=== PATIENT | female | born 1955 | race Caucasian/White ===

== ENCOUNTER 2016-05-17 02:50 | Observation (INO) ==
[2016-05-17] MEDS ORDERED: Metoclopramide 10 MG/2 ML VIAL IVP ONE (03:43)
[2016-05-17] MEDS ORDERED: Ketorolac 30 MG/ML VIAL IVP ONE (03:43)
[2016-05-17] MEDS ORDERED: 0.9 % Sodium Chloride 1,000 ML IVC ONE (03:48)
--- NOTE | 2016-05-17 03:54 | Emergency Department Note ---
Disposition Clinical Impression: Headache Qualifiers: Headache type: unspecified Headache chronicity pattern: unspecified pattern Intractability: not intractable Qualified Code(s): R51 - Headache Abdominal pain Qualifiers: Abdominal location: unspecified location Qualified Code(s): R10.9 - Unspecified abdominal pain Nausea & vomiting Qualifiers: Vomiting type: unspecified Vomiting Intractability: unspecified Qualified Code( s): R11.2 - Nausea with vomiting, unspecified Disposition: Still a Patient Referrals: NO,PCP [Non-Partnered Physician] - Forms: ED Satisfaction Letter Headache HPI - General Chief Complaint: ED Headache Stated Complaint: migraine, N/V Time Seen by Provider: 05/17/16 03:36 Limitations: no limitations Nursing Notes Reviewed: Yes Vital Signs Reviewed: Yes - History of Present Illness Pt Subjective Complaint: headache Onset (ago): hour(s) Onset description: gradual Location: frontal Pain Scale: 10 Quality: aching Improves with: nothing Worsens with: none Context: occurred at rest Associated symptoms: Reports: nausea, vomiting. Denies: chest pain, cough, fever, neck stiffness, eye pain/redness, syncope, SOB, confusion, weakness Treatments prior to arrival: none - Related Data Home Medications Medication Instructions Recorded Confirmed Quetiapine Fumarate [Seroquel] 800 mg PO HS 11/01/14 02/19/15 Omeprazole [PriLOSEC] 20 mg PO DAILY 01/07/15 02/19/15 Propranolol [Inderal] 20 mg PO BID 01/07/15 02/19/15 Ziprasidone [Geodon] 60 mg PO QPM 01/07/15 02/19/15 Cetirizine HCl [Zyrtec] 10 mg PO DAILY 02/19/15 02/19/15 Levothyroxine [Synthroid] 75 mcg PO DAILY 02/19/15 02/19/15 OxyCODONE/APAP 5/325 [Percocet 1 each PO Q6HR PRN 02/19/15 02/19/15 5/325] Pantoprazole Sodium 40 mg PO DAILY 02/19/15 02/19/15 Previous Rx's Medication Instructions Recorded Ondansetron ODT [Zofran ODT] 8 mg SL Q4H PRN #30 tab.rapdis 02/21/15 Sucralfate [Carafate] 1 gm PO 0730,1630 #30 tablet 02/21/15 Cephalexin [Keflex] 500 mg PO BID #20 capsule 12/12/15 Ondansetron ODT [Zofran ODT] 4 mg SL Q8HR #14 tab.rapdis 12/12/15 Promethazine [Phenergan] 25 mg PO Q8HR #10 tablet 12/12/15 Allergies Allergy/AdvReac Type Severity Reaction Status Date / Time acetaminophen [From Tylenol] Allergy Mild Hives Verified 01/07/15 08:04 All systems ED: reviewed and negative except as stated. Constitutional: Denies: fever, chills Eyes: Denies: vision change ENT ED: Denies: throat pain Cardiovascular: Denies: chest pain Respiratory: Denies: cough Gastrointestinal: Denies: abdominal pain, nausea, vomiting Genitourinary: Denies: dysuria Musculoskeletal: Denies: back pain, neck pain Integumentary: Denies: rash Neurological: Reports: as per HPI. Denies: weakness, numbness, paresthesias Hematological/Lymphatic: Denies: easy bleeding Allergic/Immunologic: Denies: facial swelling Headache PMH - Past Medical History Medical history: Reports: GERD, hypertension, migraine, other Female Surgical History: Reports: cholecystectomy, orthopedic, other Psychiatric history: Reports: bipolar, other - Social History Smoking Status: Current every day smoker Alcohol use: Reports: none Drug use: Reports: marijuana Physical Exam - General Limitations: no limitations General appearance: alert, in no apparent distress - Head Head exam: normocephalic - Eye Eye exam: Present: EOMI - ENT ENT exam: normal oropharynx, mucous membranes moist - Neck Neck exam: Present: full ROM - Chest Chest inspection: Present: normal inspection, symmetric chest wall rise - Respiratory Respiratory exam: Absent: respiratory distress - Cardiovascular Cardiovascular exam: Present: regular rate - Abdominal Exam Abdominal exam: Present: soft Abdominal tenderness: Present: epigastrium - Extremities Exam Extremities exam: Present: normal inspection, full ROM, normal capillary refill - Back Exam Back exam: Present: full ROM - Neurological Exam Neurological exam: Present: alert, oriented X3 - Psychiatric Psychiatric exam: Present: normal affect, normal mood - Skin Skin exam: Present: warm, dry, intact, normal color. Absent: rash, cyanosis, diaphoresis Course Course Narrative: Patient is a 61-year-old female arrives via squad with known history of migraines presents with a 10 out of 10 headache. She describes it as gradual in onset, aching, and over the front of her head. She states the onset was while she was watching TV. She states it has gradually been worsening. She denies any recent illness, fevers, No reported immune compromise conditions. Patient seen and examined. She is in no acute distress, she does not toxic. She is actively vomiting. No nuchal rigidity. Soft abdomen, with epigastric pain. She is alert and oriented 3. He meningeal signs. Workup initiated. Analgesics, antiemetics, and fluids ordered. - Reevaluation(s) Reevaluation #1: Work up reviewed. UA shows evidence of UTI, with culture from two days ago positive for e.coli. Today no elevation of white count. Pt c/o no improvement of SINGH, and epigastric pain. She still c/o nausea however it noticable more comfortable and is no longer vomitting. Due to shift change care of this patient will be transferred to day shift. Please see their earlier documentation. Pt discussed with day shift as well as Dr. rico. Plan will be for CT scan of abd/pelvis/head. Time: 06:58 Vital Signs Temperature 97.5 F L 05/17/16 02:51 Pulse Rate 86 05/17/16 02:51 Respiratory Rate 18 05/17/16 02:51 Blood Pressure 189/115 05/17/16 02:51 O2 Sat by Pulse Oximetry 97 05/17/16 02:51 Temperature 97.5 F L 05/17/16 02:51 Pulse Rate 86 05/17/16 02:51 Respiratory Rate 18 05/17/16 02:51 Blood Pressure 189/115 05/17/16 02:51 O2 Sat by Pulse Oximetry 97 05/17/16 02:51 Oxygen Delivery Oxygen Delivery Room Air Headache - Lab Data Lab results reviewed: Yes I reviewed the patient's lab results. Result diagrams: 05/17/16 05:43 05/17/16 05:43 Lab Results 05/17/16 05/17/16 05/17/16 Range/Units 05:26 05:26 05:43 WBC 9.7 (4.3-11.1) K/mcL RBC 4.94 (3.82-4.97) M/mcL Hgb 13.9 (11.5-15.4) g/dL Hct 42.0 (35.3-44.9) % MCV 85.0 (83.0-100.0) fL MCH 28.1 (28.0-33.3) pg MCHC 33.1 (31.6-35.5) g/dL RDW 16.3 H (11.5-14.5) % Plt Count 307 (140-400) K/mcL MPV 9.1 L (9.4-12.4) fL Immature Gran % 0.3 (0-4) % Seg Neutrophils % 84.0 % Lymphocytes % 11.1 % Monocytes % 4.2 % Eosinophils % 0.0 % Basophils % 0.4 % Neutrophils # 8.2 (1.6-8.9) K/mcL Lymphocytes # 1.1 (0.6-4.6) K/mcL Monocytes # 0.4 (0.0-1.3) K/mcL Eosinophils # 0.0 (0.0-0.6) K/mcL Basophils # 0.0 (0.0-0.2) K/mcL Sodium (136-145) mEq/L Potassium (3.5-4.5) mEq/L Chloride (98-109) mEq/L Carbon Dioxide (19-29) mEq/L BUN (7-20) mg/dL Creatinine (0.57-1.11) mg/dL Est GFR ( Amer) (> 60) Est GFR (Non-Af Amer) (> 60) BUN/Creatinine Ratio (6-26) Glucose (70-99) mg/dL Calculated Osmolality (280-300) Calcium (8.6-10.8) mg/dL Urine Color Yellow (Yellow) Urine Clarity Clear (Clear) Urine pH 7.5 (5.0-8.0) pH Units Ur Specific [place] 1.015 (1.010-1.025) Urine Protein 30 H (Neg-Trace) mg/dL Urine Glucose (UA) Normal (Normal) mg/dL Urine Ketones Negative (Negative) mg/dL Urine Blood Moderate H (Negative) Urine Nitrite Negative (Negative) Urine Bilirubin Negative (Negative) Urine Urobilinogen Normal (Normal) mg/dL Ur Leukocyte Esterase Trace H (Negative) Urine Microscopic RBC 5-15 H (0-3) per hpf Urine Microscopic WBC 0-3 (0-3) per hpf Ur Squamous Epith Cells Few (None-Few) per lpf Urine Bacteria Many H (None-Few) per hpf Hyaline Casts None Seen (None-Few) per lpf Urine Opiates Screen Negative (Oqpjgn=086) ng/mL Ur Barbiturates Screen Negative (Qmfbpz=636) ng/mL Ur Phencyclidine Scrn Negative (Cutoff=25) ng/mL Ur Amphetamines Screen Negative (Dmguma=2356) ng/mL U Benzodiazepines Scrn Negative (Zodniu=108) ng/mL Urine Cocaine Screen Positive H (Cutoff= 300) ng/mL U Marijuana (THC) Screen Positive H (Cutoff = 50) ng/mL 05/17/16 Range/Units 05:43 WBC (4.3-11.1) K/mcL RBC (3.82-4.97) M/mcL Hgb (11.5-15.4) g/dL Hct (35.3-44.9) % MCV (83.0-100.0) fL MCH (28.0-33.3) pg MCHC (31.6-35.5) g/dL RDW (11.5-14.5) % Plt Count (140-400) K/mcL MPV (9.4-12.4) fL Immature Gran % (0-4) % Seg Neutrophils % % Lymphocytes % % Monocytes % % Eosinophils % % Basophils % % Neutrophils # (1.6-8.9) K/mcL Lymphocytes # (0.6-4.6) K/mcL Monocytes # (0.0-1.3) K/mcL Eosinophils # (0.0-0.6) K/mcL Basophils # (0.0-0.2) K/mcL Sodium 139 (136-145) mEq/L Potassium 4.8 H (3.5-4.5) mEq/L Chloride 103 (98-109) mEq/L Carbon Dioxide 24 (19-29) mEq/L BUN 15 (7-20) mg/dL Creatinine 0.79 (0.57-1.11) mg/dL Est GFR ( Amer) > 60 (> 60) Est GFR (Non-Af Amer) > 60 (> 60) BUN/Creatinine Ratio 19 (6-26) Glucose 117 H (70-99) mg/dL Calculated Osmolality 290 (280-300) Calcium 10.2 (8.6-10.8) mg/dL Urine Color (Yellow) Urine Clarity (Clear) Urine pH (5.0-8.0) pH Units Ur Specific [place] (1.010-1.025) Urine Protein (Neg-Trace) mg/dL Urine Glucose (UA) (Normal) mg/dL Urine Ketones (Negative) mg/dL Urine Blood (Negative) Urine Nitrite (Negative) Urine Bilirubin (Negative) Urine Urobilinogen (Normal) mg/dL Ur Leukocyte Esterase (Negative) Urine Microscopic RBC (0-3) per hpf Urine Microscopic WBC (0-3) per hpf Ur Squamous Epith Cells (None-Few) per lpf Urine Bacteria (None-Few) per hpf Hyaline Casts (None-Few) per lpf Urine Opiates Screen (Edjdug=415) ng/mL Ur Barbiturates Screen (Uilyzb=634) ng/mL Ur Phencyclidine Scrn (Cutoff=25) ng/mL Ur Amphetamines Screen (Uixzkb=9431) ng/mL U Benzodiazepines Scrn (Dchkcv=572) ng/mL Urine Cocaine Screen (Cutoff= 300) ng/mL U Marijuana (THC) Screen (Cutoff = 50) ng/mL - Radiology Data Radiology results reviewed: Yes I reviewed the patient's radiology results. Attestation Statement - Attestation Attestation: I, Alek Rico MD, personally performed a history and physical exam of the patient and discussed their management with the midlevel provicer, PAC/PARCEL POST ORDER CLERK. I reviewed the midlevel provider's note and agree with the documented findings, medical decision making, and plan of care. 61-year-old female presents to the emergency department with a complaint of severe bilateral frontal headache started last evening has gone progressively worse. After the headache started she developed intractable nausea and vomiting and also epigastric abdominal pain. She has a history of some migraines in the past but states this is different from her usual headaches and worse than usual. She also has a history of recurrent intractable nausea and vomiting and abdominal pain. She has not noticed any fever. No rash or stiff neck. On examination patient is a well-developed well-nourished female in no acute distress but does appear to be in moderate discomfort. She is awake and alert. There is no cyanosis or diaphoresis. Breath sounds are equal bilaterally. Heart regular rate and rhythm. Abdomen is soft with increased bowel sounds. Moderate diffuse upper abdominal tenderness. No gross focal neurological deficits. Labs reviewed. A CT scan of the head and also abdomen and pelvis was obtained and results are pending. At shift change the patient was signed out to the oncoming mid-level provider, Lesa Florence, and was also discussed with the oncoming attending, Dr. Croft.
[2016-05-17] MEDS ORDERED: 0.9 % Sodium Chloride 1,000 ML IVC SCH (04:00)
[2016-05-17 05:33] LABS: Bilirubin,Urine Negative (Negative); Blood,Urine Moderate (Negative); Clarity,Urine Clear (Clear); Color,Urine Yellow (Yellow); Glucose,Urine (UA) Normal (Normal); Ketones,Urine Negative (Negative); Leukocyte Esterase,Urine Trace (Negative); Nitrite,Urine Negative (Negative); PH,Urine 7.5 pH Units (5.0-8.0); Protein,Urine 30 mg/dL (Neg-Trace); Specific Gravity,Urine 1.015 (1.010-1.025); Urobilinogen,Urine Normal (Normal)
[2016-05-17 05:41] LABS: Amphetamine Screen,Urine Negative ng/mL (Cutoff=1000); Barbiturate Screen,Urine Negative ng/mL (Cutoff=200); Benzodiazepines Screen,Urine Negative ng/mL (Cutoff=200); Cannabinoid Screen,Urine Positive ng/mL (Cutoff = 50); Cocaine Screen,Urine Positive ng/mL (Cutoff= 300); Opiate Screen,Urine Negative ng/mL (Cutoff=300); Phencyclidine Screen,Urine Negative ng/mL (Cutoff=25)
[2016-05-17 05:47] LABS: Hyaline Casts,Urine None Seen per lpf (None-Few); Squamous Epithelial Cell,Urine Few per lpf (None-Few); WBC,Urine 0-3 per hpf (0-3)
[2016-05-17 05:48] LABS: Bacteria,Urine Many per hpf (None-Few)
[2016-05-17 05:50] LABS: Basophils % 0.4 %; Hemoglobin 13.9 g/dL (11.5-15.4); Immature Granulocytes % 0.3 % (0-4); Lymphocytes # 1.1 K/mcL (0.6-4.6); Lymphocytes % 11.1 %; Mean Corpuscular HGB Conc 33.1 g/dL (31.6-35.5); Mean Corpuscular Hemoglobin 28.1 pg (28.0-33.3); Mean Platelet Volume 9.1 fL (9.4-12.4); Monocytes # 0.4 K/mcL (0.0-1.3); Monocytes % 4.2 %; Neutrophils # 8.2 K/mcL (1.6-8.9); Platelet Count 307 K/mcL (140-400); Red Blood Count 4.94 M/mcL (3.82-4.97); Red Cell Distribution Width 16.3 % (11.5-14.5)
[2016-05-17 06:02] LABS: BUN/Creatinine Ratio 19 (6-26); Blood Urea Nitrogen 15 mg/dL (7-20); Calcium 10.2 mg/dL (8.6-10.8); Carbon Dioxide 24 mEq/L (19-29); Chloride 103 mEq/L (98-109); Glucose 117 mg/dL (70-99); Osmolality,Calculated 290 (280-300); Sodium 139 mEq/L (136-145); eGFR For African Americans > 60 (> 60); eGFR For Non-African Americans > 60 (> 60)
[2016-05-17 06:03] LABS: Potassium 4.8 mEq/L (3.5-4.5)
[2016-05-17] MEDS ORDERED: *HR* Morphine 2 MG/ML SYRINGE IV ONE (06:58)
[2016-05-17] MEDS ORDERED: Ondansetron 4 MG/2 ML VIAL IVP ONE (07:00)
--- NOTE | 2016-05-17 09:20 | Emergency Department Note ---
START Narrative - START START: I examined this patient and my medical decision-making was reviewed with the STONEMASON APPRENTICE/PA/Advanced Practice Nurse/Resident Physician. I agree with the documented findings, disposition and treatment plan as described except to the extent set forth below. ED attending note: Patient seen with physician hr administrative assistant Lesa Florence. Please see a copy of his note for details of the H&P, evaluation, management and disposition of this patient. We independently had [id number] contact with the patient Briefly: This 31-year-old female in the emergency department for 2 chief complaints essentially exacerbation of her chronic recurrent migraine headaches and abdominal pain. Patient's examination showed a nonfocal neurologic exam, afebrile stable vitals. Nonsurgical abdominal examination. CT scan of the head read by radiology process, an abdominal pelvic CT scan read by radiology report says. Patient's symptoms have been brought under control. Labs essentially baseline. Stable for discharge home and outpatient follow-up.
--- NOTE | 2016-05-17 09:39 | Emergency Department Note ---
Disposition Clinical Impression: Pyelonephritis due to Escherichia coli, Noncompliance w/medication treatment due to intermit use of medication, Polysubstance abuse Headache Qualifiers: Headache type: unspecified Headache chronicity pattern: unspecified pattern Intractability: not intractable Qualified Code(s): R51 - Headache Abdominal pain Qualifiers: Abdominal location: unspecified location Qualified Code(s): R10.9 - Unspecified abdominal pain Nausea & vomiting Qualifiers: Vomiting type: unspecified Vomiting Intractability: intractable Qualified Code( s): R11.2 - Nausea with vomiting, unspecified Hypertension Qualifiers: Hypertension type: unspecified secondary hypertension Qualified Code(s): I15.9 - Secondary hypertension, unspecified; I15 - Secondary hypertension Disposition: Admitted As Inpatient Condition: Fair Referrals: NO,PCP [Non-Partnered Physician] - Forms: ED Satisfaction Letter General Adult HPI - General Chief complaint: ED Headache Stated complaint: migraine, N/V Time Seen by Provider: 05/17/16 03:36 Source: patient, EMS Mode of arrival: private vehicle Limitations: no limitations Nursing Notes Reviewed: Yes Vital Signs Reviewed: Yes - History of Present Illness Pt Subjective Complaint: headache, nausea, vomiting, abd pain Onset (ago): day(s) Location: head, back (flanks), abdomen Radiation: non-radiation Pain Severity: moderate, severe, similar to prior episodes Pain Scale: 9 Quality: aching, sharp Consistency: constant Improves with: nothing Worsens with: nothing Treatments Prior to Arrival: other (was seen here on 05/15 for same. No better today) - Related Data Home Medications Medication Instructions Recorded Confirmed Quetiapine Fumarate [Seroquel] 800 mg PO HS 11/01/14 02/19/15 Propranolol [Inderal] 20 mg PO BID 01/07/15 02/19/15 Ziprasidone [Geodon] 60 mg PO QPM 01/07/15 02/19/15 Cetirizine HCl [Zyrtec] 10 mg PO DAILY 02/19/15 02/19/15 Levothyroxine [Synthroid] 75 mcg PO DAILY 02/19/15 02/19/15 Albuterol Sulfate [Albuterol 2 puff IH Q4H PRN 05/17/16 05/17/16 Inhaler] Beclomethasone Diprop 40mcg [QVAR 1 puff IH DAILY 05/17/16 05/17/16 40 mcg] Hydrochlorothiazide 25 mg PO DAILY 05/17/16 05/17/16 Omeprazole [PriLOSEC] 20 mg PO BID 05/17/16 05/17/16 Previous Rx's Medication Instructions Recorded Ondansetron ODT [Zofran ODT] 4 mg SL Q8HR #14 tab.rapdis 12/12/15 Promethazine [Phenergan] 25 mg PO Q8HR #10 tablet 12/12/15 Allergies Allergy/AdvReac Type Severity Reaction Status Date / Time acetaminophen [From Tylenol] Allergy Mild Hives Verified 05/17/16 10:07 All systems ED: reviewed and negative except as stated. Constitutional: Reports: chills. Denies: fever, weakness Eyes: Denies: eye pain, vision change ENT ED: Denies: ear pain, throat pain, dysphagia Cardiovascular: Denies: chest pain, palpitations, dyspnea on exertion, orthopnea , edema, syncope Respiratory: Denies: cough, dyspnea, wheezes Gastrointestinal: Reports: as per HPI, abdominal pain, nausea, vomiting. Denies : diarrhea, constipation, hematemesis, melena, hematochezia Genitourinary: Denies: urgency, dysuria, frequency, hematuria Musculoskeletal: Reports: as per HPI, back pain. Denies: neck pain, joint swelling, arthralgia Integumentary: Denies: rash Neurological: Reports: as per HPI, headache. Denies: weakness, numbness, paresthesias, confusion, abnormal gait, vertigo Endocrine: Reports: fatigue Hematological/Lymphatic: Denies: easy bleeding Allergic/Immunologic: Denies: facial swelling Past Medical History - Past Medical History Attestation: Yes The following information was validated with the patient. Source: patient Medical history: Reports: GERD, hypertension, kidney stones, migraine, other Surgical history: Reports: cholecystectomy, orthopedic, other Psychiatric history: Reports: bipolar, other - Social History Smoking Status: Current every day smoker Smokeless Tobacco Status: No Alcohol use: Reports: none Drug use: Reports: marijuana Physical Exam - General Limitations: no limitations General appearance: alert, in no apparent distress, anxious - Head Head exam: atraumatic, normocephalic, normal inspection - Eye Eye exam: Present: normal appearance, PERRL, EOMI. Absent: scleral icterus, conjunctival injection, nystagmus, miosis, mydriasis, periorbital swelling - ENT ENT exam: mucous membranes dry - Neck Neck exam: Present: normal inspection, full ROM, trachea midline. Absent: meningismus, lymphadenopathy - Chest Chest inspection: Present: normal inspection - Respiratory Respiratory exam: Present: normal lung sounds bilaterally. Absent: respiratory distress, wheezes, stridor, accessory muscle use, prolonged expiratory phase - Cardiovascular Cardiovascular exam: Present: regular rate, normal rhythm, normal heart sounds - Abdominal Exam Abdominal exam: Present: soft, Non-Tender, normal bowel sounds. Absent: distention, guarding, rebound, rigidity, mass - Extremities Exam Extremities exam: Present: full ROM - Back Exam Back exam: Present: normal inspection, CVA tenderness (R), CVA tenderness (L). Absent: muscle spasm, vertebral tenderness - Neurological Exam Neurological exam: Present: alert, oriented X3, CN II-XII intact, normal gait, reflexes normal. Absent: motor sensory deficit - Psychiatric Psychiatric exam: Present: normal affect, anxious - Skin Skin exam: Present: warm, dry, intact, normal color Course Vital Signs Temperature 97.5 F L 05/17/16 02:51 Pulse Rate 86 05/17/16 02:51 Respiratory Rate 18 05/17/16 02:51 Blood Pressure 189/115 05/17/16 02:51 O2 Sat by Pulse Oximetry 97 05/17/16 02:51 Temperature 97.5 F L 05/17/16 02:51 Pulse Rate 106 05/17/16 07:32 Respiratory Rate 21 05/17/16 07:32 Blood Pressure 196/136 05/17/16 07:32 O2 Sat by Pulse Oximetry 96 05/17/16 07:32 Oxygen Delivery Oxygen Delivery Room Air Medical Decision Making - Medical Records Medical records reviewed: Yes I reviewed the patient's medical records. - Lab Data Lab results reviewed: Yes I reviewed the patient's lab results. Result diagrams: 05/17/16 05:43 05/17/16 05:43 Lab Results 05/17/16 05/17/16 05/17/16 Range/Units 05:26 05:26 05:43 WBC 9.7 (4.3-11.1) K/mcL RBC 4.94 (3.82-4.97) M/mcL Hgb 13.9 (11.5-15.4) g/dL Hct 42.0 (35.3-44.9) % MCV 85.0 (83.0-100.0) fL MCH 28.1 (28.0-33.3) pg MCHC 33.1 (31.6-35.5) g/dL RDW 16.3 H (11.5-14.5) % Plt Count 307 (140-400) K/mcL MPV 9.1 L (9.4-12.4) fL Immature Gran % 0.3 (0-4) % Seg Neutrophils % 84.0 % Lymphocytes % 11.1 % Monocytes % 4.2 % Eosinophils % 0.0 % Basophils % 0.4 % Neutrophils # 8.2 (1.6-8.9) K/mcL Lymphocytes # 1.1 (0.6-4.6) K/mcL Monocytes # 0.4 (0.0-1.3) K/mcL Eosinophils # 0.0 (0.0-0.6) K/mcL Basophils # 0.0 (0.0-0.2) K/mcL Sodium (136-145) mEq/L Potassium (3.5-4.5) mEq/L Chloride (98-109) mEq/L Carbon Dioxide (19-29) mEq/L BUN (7-20) mg/dL Creatinine (0.57-1.11) mg/dL Est GFR ( Amer) (> 60) Est GFR (Non-Af Amer) (> 60) BUN/Creatinine Ratio (6-26) Glucose (70-99) mg/dL Calculated Osmolality (280-300) Calcium (8.6-10.8) mg/dL Urine Color Yellow (Yellow) Urine Clarity Clear (Clear) Urine pH 7.5 (5.0-8.0) pH Units Ur Specific [place] 1.015 (1.010-1.025) Urine Protein 30 H (Neg-Trace) mg/dL Urine Glucose (UA) Normal (Normal) mg/dL Urine Ketones Negative (Negative) mg/dL Urine Blood Moderate H (Negative) Urine Nitrite Negative (Negative) Urine Bilirubin Negative (Negative) Urine Urobilinogen Normal (Normal) mg/dL Ur Leukocyte Esterase Trace H (Negative) Urine Microscopic RBC 5-15 H (0-3) per hpf Urine Microscopic WBC 0-3 (0-3) per hpf Ur Squamous Epith Cells Few (None-Few) per lpf Urine Bacteria Many H (None-Few) per hpf Hyaline Casts None Seen (None-Few) per lpf Urine Opiates Screen Negative (Tthixk=852) ng/mL Ur Barbiturates Screen Negative (Vfzapx=424) ng/mL Ur Phencyclidine Scrn Negative (Cutoff=25) ng/mL Ur Amphetamines Screen Negative (Cfwwpt=4731) ng/mL U Benzodiazepines Scrn Negative (Mvuevu=756) ng/mL Urine Cocaine Screen Positive H (Cutoff= 300) ng/mL U Marijuana (THC) Screen Positive H (Cutoff = 50) ng/mL 05/17/16 Range/Units 05:43 WBC (4.3-11.1) K/mcL RBC (3.82-4.97) M/mcL Hgb (11.5-15.4) g/dL Hct (35.3-44.9) % MCV (83.0-100.0) fL MCH (28.0-33.3) pg MCHC (31.6-35.5) g/dL RDW (11.5-14.5) % Plt Count (140-400) K/mcL MPV (9.4-12.4) fL Immature Gran % (0-4) % Seg Neutrophils % % Lymphocytes % % Monocytes % % Eosinophils % % Basophils % % Neutrophils # (1.6-8.9) K/mcL Lymphocytes # (0.6-4.6) K/mcL Monocytes # (0.0-1.3) K/mcL Eosinophils # (0.0-0.6) K/mcL Basophils # (0.0-0.2) K/mcL Sodium 139 (136-145) mEq/L Potassium 4.8 H (3.5-4.5) mEq/L Chloride 103 (98-109) mEq/L Carbon Dioxide 24 (19-29) mEq/L BUN 15 (7-20) mg/dL Creatinine 0.79 (0.57-1.11) mg/dL Est GFR ( Amer) > 60 (> 60) Est GFR (Non-Af Amer) > 60 (> 60) BUN/Creatinine Ratio 19 (6-26) Glucose 117 H (70-99) mg/dL Calculated Osmolality 290 (280-300) Calcium 10.2 (8.6-10.8) mg/dL Urine Color (Yellow) Urine Clarity (Clear) Urine pH (5.0-8.0) pH Units Ur Specific [place] (1.010-1.025) Urine Protein (Neg-Trace) mg/dL Urine Glucose (UA) (Normal) mg/dL Urine Ketones (Negative) mg/dL Urine Blood (Negative) Urine Nitrite (Negative) Urine Bilirubin (Negative) Urine Urobilinogen (Normal) mg/dL Ur Leukocyte Esterase (Negative) Urine Microscopic RBC (0-3) per hpf Urine Microscopic WBC (0-3) per hpf Ur Squamous Epith Cells (None-Few) per lpf Urine Bacteria (None-Few) per hpf Hyaline Casts (None-Few) per lpf Urine Opiates Screen (Onrbfl=798) ng/mL Ur Barbiturates Screen (Gvozfr=861) ng/mL Ur Phencyclidine Scrn (Cutoff=25) ng/mL Ur Amphetamines Screen (Qbxckg=4209) ng/mL U Benzodiazepines Scrn (Tqufjl=632) ng/mL Urine Cocaine Screen (Cutoff= 300) ng/mL U Marijuana (THC) Screen (Cutoff = 50) ng/mL - Radiology Data Radiology results reviewed: Yes I reviewed the patient's radiology results. Abdomen/Pelvis CT 05/17/16 06:38 IMPRESSION: 1. No acute findings within the abdomen. 2. No acute findings within the pelvis. 3. Medullary nephrocalcinosis with numerous nonobstructing bilateral renal calculi. No evidence of obstructive uropathy at this time. 4. Diverticulosis. 5. Stable, bilateral adrenal gland adenomatous hyperplasia. 6. Mild focal ectasia of the infrarenal abdominal aorta which measures up to 2.7 cm, stable. 7. Small hiatal hernia. D/ / 05/17/2016 08:20:28 Tera Rojas MD / sheryl Interpreting Provider: Tera Rojas MD Head CT 05/17/16 06:42 IMPRESSION: No acute intracranial abnormality. D/ / 05/17/2016 08:06:28 Tera Rojas MD / sheryl Interpreting Provider: Tera Rojas MD
--- NOTE | 2016-05-17 11:55 | Internal Med History&Physical ---
<Maria G Mchugh - Last Filed: 05/17/16 12:52> Date of Encounter: 05/17/16 Time of Encounter: 11:20 Assessment and Plan (1) UTI (urinary tract infection) Current visit: Yes Status: Acute t has had dysuria and dark urine for a a month but did not seek treatment. Renal function WNL. Pt was given Rocephin 1 gram IV in the ED. Pt was seen here 2 days ago for same complaints, urine culture was done at that time, + for e.coli. IVF 0.9NS at 75ml/hour Rocephin 1g IV daily Pain control Qualifiers: Urinary tract infection type: acute cystitis Hematuria presence: with hematuria Qualified Code(s): N30.01 - Acute cystitis with hematuria (2) Hypertension Current visit: Yes Status: Chronic Pt states that she has not been able to keep her medications down for 3 days due to migraine, n/v. Vasotec 1.25mg x 2 in ER with no effect. Hydralazine 10mg IVP Monitor vital signs closely Telemetry Qualifiers: Hypertension type: essential hypertension Qualified Code(s): I10 - Essential (primary) hypertension (3) Headache Current visit: Yes Status: Chronic Pt has had migraine and n/v x 3 days, has not been able to keep any of her medications down. She has been seen by neurology who told her that her headaches most likely are due to her hypertension. Most likely this is the case again today. I have given her Motrin 600mg TID for the pain and am giving IV Hydralazine to attempt to lower her pressure. Head CT in ER today is negative for any acute process and she is neurologically intact. She states that her SINGH is global and describes photophobia. Qualifiers: Headache type: unspecified Headache chronicity pattern: unspecified pattern Intractability: not intractable Qualified Code(s): R51 - Headache (4) Nausea & vomiting Current visit: Yes Status: Chronic N/v and SINGH for 3 days. Pt was seen in the ED for the same 2 days ago. Pt does use marijuana 2-3x weekly. Head CT is negative and CT abd/pelvis shows malinda non- obstructing calculi without hydronephrosis, bladder, urerters are unremarkable and stable. We discussed the correlation between marijuana use and cyclical vomiting. This may also be due to HTN and pyelo, so as these are treated, it most likely will resolve. Zofran 4mg IV q8h prn n/v Qualifiers: Vomiting type: cyclical vomiting Vomiting Intractability: intractable Qualified Code(s): G43.A1 - Cyclical vomiting, intractable (5) Polysubstance abuse Current visit: Yes Status: Chronic UTOX positive for cocaine and THC. Pt admits to marijuana use 2-3x/week, but adamantly denies cocaine use and is not sure how she got it. She is not ready to stop using marijuana at this time. (6) Schizophrenia Current visit: No Status: Chronic Stable. Well controlled with Geodon. Will continue. Qualifiers: Schizophrenia type: unspecified Qualified Code(s): F20.9 - Schizophrenia, unspecified (7) Erosive esophagitis Current visit: No Status: Chronic Uncontrolled GERD "for years" per pt. Well controlled now with Omeprazole. Will continue home dose. (8) Tobacco abuse Current visit: No Status: Chronic Pt states that she wants to stop smoking someday, but is not ready now and it not interested in smoking cessation education. Does not want nicoderm patch. Smokes 1/2 PPD, decreased from 1 PPD for 40 years. Internal Medicine - H&P: HPI Chief complaint: headache, n/v x 3 days Admitted From: Home Plans for Post Hospital Care: Home History of present illness: Ms. Banks is a 61 year old female with a history of HTN, COPD, pancreatitis, erosive esophagitis, schizophrenia, polysubstance and tobacco abuse. Migraine SINGH and n/v for 3 days, has not been able to keep any of her medications down. She has prn phenergan and zofran ODT at home and states that even it wouldn't stay down. Describes SINGH as global with photophobia and n/v, without vision changes. She says that she has not had one for years and was seen by neurology who told her that they were most likely due to her blood pressure. Head CT in ER was negative for any acute processes and pt now states that her SINGH pain is 6/ 10. Pt also reports urinary symptoms for 1 month but did not seek care. She reports dark urine and dysuria for the last month. Today she has UTI and malinda CVA tenderness, denies fever and has been afebrile here. Past Med Surg Social Fam HX - Past Medical History Medical history: GERD, hypertension, kidney stones, migraine, other Psychiatric history: bipolar, other - Past Surgical History Surgical History: cholecystectomy, orthopedic, other - Social History Smoking Status: Current every day smoker Smokeless Tobacco Status: No Alcohol use: none Drug use: marijuana - Family History Mother Adopted: No Living Status: Unknown Hx Family Cardiac Disorders: No Hx Family Respiratory Disorders: No Hx Family Cancer: No Hx Family GI Disorders: No Hx Family Endocrine Disorder: No Hx Family Neuromuscular Disorders: No Hx Family Neurologic Disorders: No Hx Family HEENT Disorders: No Hx Family Autoimmune Disorders: No Internal Medicine - H&P: Meds Quetiapine Fumarate [Seroquel] 800 mg PO HS 11/01/14 [History] Propranolol [Inderal] 20 mg PO BID 01/07/15 [History] Ziprasidone [Geodon] 60 mg PO QPM 01/07/15 [History] Cetirizine HCl [Zyrtec] 10 mg PO DAILY 02/19/15 [History] Levothyroxine [Synthroid] 75 mcg PO DAILY 02/19/15 [History] Ondansetron ODT [Zofran ODT] 4 mg SL Q8HR #14 tab.rapdis 12/12/15 [Rx] Promethazine [Phenergan] 25 mg PO Q8HR #10 tablet 12/12/15 [Rx] Albuterol Sulfate [Albuterol Inhaler] 2 puff IH Q4H PRN 05/17/16 [History] Beclomethasone Diprop 40mcg [QVAR 40 mcg] 1 puff IH DAILY 05/17/16 [History] Hydrochlorothiazide 25 mg PO DAILY 05/17/16 [History] Omeprazole [PriLOSEC] 20 mg PO BID 05/17/16 [History] Allergies acetaminophen [From Tylenol] Allergy (Mild, Verified 05/17/16 10:07) Hives All Systems PM: A 10-system review of systems was performed and is negative for pertinent findings except as documented above in the HPI. - Constitutional Constitutional: no chills, no fatigue, no fever(s), no lethargy - EENT Eyes: photophobia, no blurry vision, no change in vision - Cardiovascular Cardiovascular ROS IM: no chest pain, no dyspnea, no edema, no palpitations - Respiratory Respiratory: no cough, no dyspnea, no wheezing, no stridor, no chest congestion Additional comments: Pt states that her COPD is well controlled with her steroid and albuterol inhaler. Denies recent change in cough or need for increased use of albuterol. - Gastrointestinal Gastrointestinal: abdominal pain, nausea, vomiting, no constipation, no diarrhea - Genitourinary Genitourinary: dysuria, no hematuria, no pelvic pain, no urinary frequency, no urinary hesitancy, no urinary incontinence, no urinary urgency - Neurological Neurological ROS: no abnormal speech, no dizziness, no frequent falls, no weakness - Constitutional Vitals: Temp Pulse Resp BP Pulse Ox 97.5 F L 100 18 190/146 98 05/17/16 02:51 05/17/16 11:26 05/17/16 10:33 05/17/16 11:26 05/17/16 09:57 General appearance: Present: cooperative, A&O X 3, pleasant, no acute distress - Head Head exam: Present: atraumatic, normal inspection - Eye Eye exam: Present: normal appearance, PERRL, conjuntiva pink - ENT ENT exam: Present: mucous membranes dry, normal exam - Neck Neck exam general surgery: Absent: lymphadenopathy, tenderness - Respiratory Respiratory exam: Present: CTAB. Absent: accessory muscle use, chest wall tenderness, decreased breath sounds, rhonchi, wheezes - Cardiovascular Cardiovascular exam: Present: RRR, +S1, +S2. Absent: diastolic murmur, systolic murmur - GI/Abdominal GI/Abdominal exam: Present: hyperactive bowel sounds, soft, tenderness - Extremities Exam Extremities exam: Present: full ROM, normal capillary refill, warm, radial pulses palpable and symetrical. Absent: pedal edema, tenderness - Neurological Exam Neurological exam: Present: alert, oriented X3, no focal deficits. Absent: facial droop, speech deficit - Psychiatric Psychiatric exam: Present: normal affect, normal mood Internal Med - H&P Results - Labs CBC & Chem 7: 05/17/16 05:43 05/17/16 05:43 <Jenny Lawrence - Last Filed: 05/18/16 07:40> Date of Encounter: 05/18/16 Internal Medicine - H&P: HPI History of present illness: Ms. Banks is a 61 year old female All Systems PM: A 10-system review of systems was performed and is negative for pertinent findings except as documented above in the HPI. - Constitutional Vitals: Temp Pulse Resp BP Pulse Ox 97.9 F 77 18 102/72 98 05/18/16 06:33 05/18/16 06:33 05/18/16 06:33 05/18/16 06:33 05/18/16 06:33 Internal Med - H&P Results - Labs CBC & Chem 7: 05/18/16 06:18 05/18/16 06:18 Labs: Short CBC 05/18/16 Range/Units 06:18 WBC 5.7 (4.3-11.1) K/mcL Hgb 12.5 (11.5-15.4) g/dL Hct 39.4 (35.3-44.9) % Plt Count 231 (140-400) K/mcL Neutrophils # 3.0 (1.6-8.9) K/mcL BMP 05/18/16 06:18 Sodium 141 Potassium 3.4 L D Chloride 108 Carbon Dioxide 24 BUN 22 H Creatinine 0.85 Glucose 83 Calcium 9.1 - Attending Attestation I examined this patient and reviewed laboratory, imaging and all diagnostic data. My medical decision-making was reviewed with IRVING Mchugh. I agree with the documented findings, disposition and treatment plan as described above. 61 year old female with past medical history of HTN, COPD, schizophrenia, polysubstance abuse and tobacco abuse. 3 days ago, she was diagnosed with UTI and sent home with oral antibiotics. She has not taken her medications due to nausea, vomiting with associated headache. BP was elevated. EXamination revealed pain all over her body. Urine drug screen was positive for cocaine and marihuana. Urine culture grew E coli resistant to cipro and levofloxacin. She received IV Ceftriaxone, IV fluids and pain meds. A/P: UTI, continue ceftriaxone and IV fluids. Cocaine abuse, IVF and antiemetics. resume all her prior home medications.
[2016-05-17] MEDS ORDERED: Mag Hydrox/Al Hydrox/Simeth 30 ML UDC PO PRN (12:09)
[2016-05-17] MEDS ORDERED: *HR* Morphine 2 MG/ML SYRINGE IVP PRN (12:09)
[2016-05-17] MEDS ORDERED: Ondansetron 4 MG/2 ML VIAL IVP PRN (12:09)
[2016-05-17] MEDS ORDERED: Naloxone 0.4 MG/ML INJ IVP PRN (12:09)
[2016-05-17] MEDS ORDERED: MOM Conc 10 ML UD.LIQ PO PRN (12:09)
[2016-05-17] MEDS ORDERED: Albuterol 2.5 MG/3 ML NEBULIZER IH PRN (13:01)
[2016-05-17] MEDS: 0.9 % Sodium Chloride 1,000 ML IVC SCH (14:09)
[2016-05-17] MEDS: Pantoprazole 40 MG VIAL IVP SCH (14:10)
[2016-05-17] MEDS: *HR* Morphine 2 MG/ML SYRINGE IVP PRN ×2 (14:10→23:19)
[2016-05-17] MEDS ORDERED: Ziprasidone 20 MG CAPSULE PO SCH (18:00)
[2016-05-17] MEDS ORDERED: Ziprasidone injection 20 MG/ML VIAL IM ONE (19:02)
--- NOTE | 2016-05-17 20:05 | Electrocardiograph Report ---
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
[2016-05-17] MEDS ORDERED: NON-FORMULARY MEDICATION 1 EACH EACH (Quetiapine Fumarate [Seroquel] 800 MG) PO SCH (21:00)
[2016-05-17] MEDS: Budesonide Neb 0.5 MG/2 ML IH SCH (22:02)
[2016-05-17] MEDS: Ziprasidone 20 MG CAPSULE PO SCH (23:19)
[2016-05-18] MEDS: 0.9 % Sodium Chloride 1,000 ML IVC SCH (03:56)
[2016-05-18] MEDS: Ibuprofen 600 MG TABLET PO PRN ×2 (06:42→17:42)
[2016-05-18 06:48] LABS: Basophils % 0.5 %; Eosinophils % 0.7 %; Hematocrit 39.4 % (35.3-44.9); Hemoglobin 12.5 g/dL (11.5-15.4); Immature Granulocytes % 0.5 % (0-4); Lymphocytes # 2.1 K/mcL (0.6-4.6); Lymphocytes % 36.6 %; Mean Corpuscular HGB Conc 31.7 g/dL (31.6-35.5); Mean Corpuscular Hemoglobin 27.1 pg (28.0-33.3); Mean Corpuscular Volume 85.5 fL (83.0-100.0); Mean Platelet Volume 9.3 fL (9.4-12.4); Monocytes # 0.5 K/mcL (0.0-1.3); Platelet Count 231 K/mcL (140-400); Red Blood Count 4.61 M/mcL (3.82-4.97); Red Cell Distribution Width 16.4 % (11.5-14.5); Segmented Neutrophils % 53.7 %
[2016-05-18 07:06] LABS: BUN/Creatinine Ratio 26 (6-26); Blood Urea Nitrogen 22 mg/dL (7-20); Calcium 9.1 mg/dL (8.6-10.8); Carbon Dioxide 24 mEq/L (19-29); Chloride 108 mEq/L (98-109); Glucose 83 mg/dL (70-99); Osmolality,Calculated 294 (280-300); Potassium 3.4 mEq/L (3.5-4.5); Sodium 141 mEq/L (136-145); eGFR For African Americans > 60 (> 60); eGFR For Non-African Americans > 60 (> 60)
[2016-05-18] MEDS: Budesonide Neb 0.5 MG/2 ML IH SCH ×2 (07:50→21:49)
--- NOTE | 2016-05-18 08:34 | Internal Med Progress Note ---
<Collin Flynn - Last Filed: 05/18/16 09:57> Date of Encounter: 05/18/16 Time of Encounter: 08:51 - Subjective Interval history: Patient seen and examined at bedside this morning. She states her migraine is much improved although still present. Her nausea / vomiting has resolved. Her flank pain is improved. Denies CP/SOB or other new complaints - Constitutional Vitals: Temp Pulse Resp BP Pulse Ox 97.9 F 77 18 102/72 98 05/18/16 06:33 05/18/16 06:33 05/18/16 06:33 05/18/16 06:33 05/18/16 06:33 General appearance: Present: cooperative, A&O X 3, pleasant, no acute distress - Head Head exam: Present: atraumatic, normocephalic - Eye Eye exam: Present: PERRL, conjuntiva pink, sclera anicteric Pupils: Present: PERRL - Neck Neck exam general surgery: Present: supple, trachea midline. Absent: lymphadenopathy - Respiratory Respiratory exam: Present: CTAB. Absent: accessory muscle use, rales, rhonchi, wheezes - Cardiovascular Cardiovascular exam: Present: RRR, +S1, +S2. Absent: diastolic murmur, gallop, rubs, systolic murmur - GI/Abdominal GI/Abdominal exam: Present: normal bowel sounds, soft, no peritoneal signs. Absent: distended Additional comments: Mild epigastric tenderness - Additional comments: + CVA tenderness - Extremities Exam Extremities exam: Present: warm, radial pulses palpable and symetrical. Absent : calf tenderness, cyanotic, pedal edema - Neurological Exam Neurological exam: Present: oriented X3, no focal deficits. Absent: facial droop, speech deficit - Skin Skin exam: Present: dry, intact Internal Medicine: Result - Labs CBC & Chem 7: 05/18/16 06:18 05/18/16 06:18 Labs: Short CBC 05/18/16 Range/Units 06:18 WBC 5.7 (4.3-11.1) K/mcL Hgb 12.5 (11.5-15.4) g/dL Hct 39.4 (35.3-44.9) % Plt Count 231 (140-400) K/mcL Neutrophils # 3.0 (1.6-8.9) K/mcL BMP 05/18/16 06:18 Sodium 141 Potassium 3.4 L D Chloride 108 Carbon Dioxide 24 BUN 22 H Creatinine 0.85 Glucose 83 Calcium 9.1 Consult Discharge Plan - Plan Referrals: Blanca Echavraria DO [Primary Care Provider] - <DilannavyaEulogio H - Last Filed: 05/18/16 13:41> Date of Encounter: 05/18/16 - Time Spent With Patient 1.- Urinary tract infection with Escherichia coli resistant to ciprofloxacin The patient received Rocephin yesterday but has no IV access today. We will start amoxicillin with clavulanic acid today and we will try to discharge in the morning if stable. 2. Dehydration secondary to intractable nausea and vomiting Improving, may start IV fluids when new IV line is placed 3. Tobacco use and marijuana use Smoking cessation counseling given for 5 minutes 4. Cocaine use. The patient was positive for cocaine but denies using such drugs. She thinks it was mixed with her marijuana. 5. Migraine likely the cause of her intractable nausea and vomiting, continue pain medications 6. GERD start omeprazole Greater than 35 minutes - Subjective Interval history: Please of abdominal pain,. Complains of some dysuria. No fevers overnight - Constitutional Vitals: Temp Pulse Resp BP Pulse Ox 98.5 F 63 18 125/82 98 05/18/16 11:08 05/18/16 11:08 05/18/16 11:08 05/18/16 11:08 05/18/16 11:08 - Head Head exam: Present: atraumatic, normocephalic - Eye Eye exam: Present: PERRL, conjuntiva pink, sclera anicteric Pupils: Present: PERRL - Neck Neck exam general surgery: Present: supple, trachea midline. Absent: lymphadenopathy - Respiratory Respiratory exam: Present: CTAB. Absent: accessory muscle use, rales, rhonchi, wheezes - Cardiovascular Cardiovascular exam: Present: RRR, +S1, +S2. Absent: diastolic murmur, gallop, rubs, systolic murmur - GI/Abdominal GI/Abdominal exam: Present: normal bowel sounds, soft, no peritoneal signs. Absent: distended, tenderness - Extremities Exam Extremities exam: Present: warm, radial pulses palpable and symetrical. Absent : calf tenderness, cyanotic, pedal edema - Neurological Exam Neurological exam: Present: CN II-XII intact, oriented X3, no focal deficits. Absent: pronater drift, facial droop, speech deficit - Skin Skin exam: Present: dry, intact Internal Medicine: Result - Labs CBC & Chem 7: 05/18/16 06:18 05/18/16 06:18 Labs: Short CBC 05/18/16 Range/Units 06:18 WBC 5.7 (4.3-11.1) K/mcL Hgb 12.5 (11.5-15.4) g/dL Hct 39.4 (35.3-44.9) % Plt Count 231 (140-400) K/mcL Neutrophils # 3.0 (1.6-8.9) K/mcL BMP 05/18/16 06:18 Sodium 141 Potassium 3.4 L D Chloride 108 Carbon Dioxide 24 BUN 22 H Creatinine 0.85 Glucose 83 Calcium 9.1
[2016-05-18] MEDS: Cetirizine HCl 5 MG/5 ML UDC PO SCH (09:19)
[2016-05-18] MEDS: Pantoprazole 40 MG VIAL IVP SCH (09:21)
[2016-05-18] MEDS: hydroCHLOROthiazide 25 MG TABLET PO SCH (09:21)
[2016-05-18] MEDS: *HR* Morphine 2 MG/ML SYRINGE IVP PRN ×3 (09:39→20:07)
[2016-05-18] MEDS: Ziprasidone 20 MG CAPSULE PO SCH (17:39)
[2016-05-19 04:48] LABS: BUN/Creatinine Ratio 17 (6-26); Blood Urea Nitrogen 18 mg/dL (7-20); Calcium 8.9 mg/dL (8.6-10.8); Carbon Dioxide 20 mEq/L (19-29); Chloride 106 mEq/L (98-109); Glucose 127 mg/dL (70-99); Osmolality,Calculated 285 (280-300); Potassium 4.1 mEq/L (3.5-4.5); Sodium 136 mEq/L (136-145); eGFR For African Americans > 60 (> 60); eGFR For Non-African Americans 54 (> 60)
[2016-05-19] MEDS: *HR* Morphine 2 MG/ML SYRINGE IVP PRN (05:54)
[2016-05-19] MEDS: Budesonide Neb 0.5 MG/2 ML IH SCH (08:36)
[2016-05-19] MEDS: hydroCHLOROthiazide 25 MG TABLET PO SCH (09:07)
[2016-05-19] MEDS ORDERED: Ondansetron ODT 4 MG TAB.RAPDIS SL PRN (09:21)
[2016-05-19] MEDS: Cetirizine HCl 5 MG/5 ML UDC PO SCH (10:02)
--- NOTE | 2016-05-19 11:14 | Discharge Summary ---
Date of Encounter: 05/19/16 Time of Encounter: 11:10 - Discharge Medications Prescriptions: Amoxicillin/Clavulanate [Augmentin] 875 mg PO BIDWM #8 tablet Home Medications: Quetiapine Fumarate [Seroquel] 800 mg PO HS 11/01/14 [History] Propranolol [Inderal] 20 mg PO BID 01/07/15 [History] Ziprasidone [Geodon] 60 mg PO QPM 01/07/15 [History] Cetirizine HCl [Zyrtec] 10 mg PO DAILY 02/19/15 [History] Levothyroxine [Synthroid] 75 mcg PO DAILY 02/19/15 [History] Ondansetron ODT [Zofran ODT] 4 mg SL Q8HR #14 tab.rapdis 12/12/15 [Rx] Promethazine [Phenergan] 25 mg PO Q8HR #10 tablet 12/12/15 [Rx] Albuterol Sulfate [Albuterol Inhaler] 2 puff IH Q4H PRN 05/17/16 [History] Beclomethasone Diprop 40mcg [QVAR 40 mcg] 1 puff IH DAILY 05/17/16 [History] Hydrochlorothiazide 25 mg PO DAILY 05/17/16 [History] Omeprazole [PriLOSEC] 20 mg PO BID 05/17/16 [History] Amoxicillin/Clavulanate [Augmentin] 875 mg PO BIDWM #8 tablet 05/19/16 [Rx] Allergies/Adverse Reactions: Allergies acetaminophen [From Tylenol] Allergy (Mild, Verified 05/17/16 10:07) Hives Date of admission: 05/17/16 10:11 Primary care physician: Blanca Echavarria DO Consults: 05/17/16 11:55 Consult to Nutrition [CONS] Routine Comment: nurse consult for MST Consulting Provider: NUTRITION Reason for Dietary Consult: MST Score - Patient Status Disposition: Home, Self-Care Condition: Good Overall status at discharge: patient is back to baseline - Discharge Instructions Follow Up With: Blanca Echavarria DO [Primary Care Provider] - Additional Instructions: Follow with primary care physician within the next 7 days. Complete 4 more days of Augmentin. Quit smoking, avoid using marijuana - Diet and Activity Activity: increase activity as tolerated Diet: low fat, low cholesterol Interval History: 1.- Urinary tract infection with Escherichia coli resistant to ciprofloxacin The patient received Rocephin Was started on amoxicillin with clavulanic acid day 2 2. Dehydration secondary to intractable nausea and vomiting 3. Tobacco use and marijuana use Smoking cessation counseling given for 5 minutes 4. Cocaine use. The patient was positive for cocaine but denies using such drugs. She thinks it was mixed with her marijuana. 5. Migraine likely the cause of her intractable nausea and vomiting, continue pain medications 6. GERD start omeprazole Hospital course: Ms. Banks is a 61 year old female with a history of HTN, COPD, pancreatitis, erosive esophagitis, schizophrenia, polysubstance and tobacco abuse. Migraine SINGH and n/v for 3 days, was not able to keep any of her medications down. She has prn phenergan and zofran ODT at home and states that even it wouldn't stay down. Describes SINGH as global with photophobia and n/v, without vision changes. She says that she has not had one for years and was seen by neurology who told her that they were most likely due to her blood pressure. Head CT in ER was negative for any acute processes and pt now states that her SINGH pain is 6/10. Diagnosed with a urinary tract infection with Escherichia coli resistant to ciprofloxacin and Levaquin. Patient was started on Rocephin but during her hospitalization she lost her IV access and was started on Augmentin. She has not vomited overnight and was able to keep finally her on antibiotics for which she is stable to be discharged today. Her potassium was 3.4 and was repleted. Time spent discussing smoking cessation with patient: 3 to 10 minutes - Time Spent with Patient Total time spent providing and/or coordinating discharge services: Greater than 30 minutes (40 min) - Constitutional Vitals: Temp Pulse Resp BP Pulse Ox 97.5 F L 80 16 118/80 98 05/19/16 07:23 05/19/16 07:23 05/19/16 07:23 05/19/16 07:23 05/19/16 07:23 General appearance: Present: cooperative, A&O X 3, pleasant, no acute distress - Head Head exam: Present: atraumatic, normocephalic - Eye Eye exam: Present: PERRL, conjuntiva pink, sclera anicteric Pupils: Present: PERRL - Neck Neck exam general surgery: Present: supple, trachea midline. Absent: lymphadenopathy - Respiratory Respiratory exam: Present: CTAB. Absent: accessory muscle use, rales, rhonchi, wheezes - Cardiovascular Cardiovascular exam: Present: RRR, +S1, +S2. Absent: diastolic murmur, gallop, rubs, systolic murmur - GI/Abdominal GI/Abdominal exam: Present: normal bowel sounds, soft, no peritoneal signs. Absent: distended, tenderness - Extremities Exam Extremities exam: Present: warm, radial pulses palpable and symetrical. Absent : calf tenderness, cyanotic, pedal edema - Neurological Exam Neurological exam: Present: CN II-XII intact, oriented X3, no focal deficits. Absent: pronater drift, facial droop, speech deficit - Skin Skin exam: Present: dry, intact
[2016-05-19] MEDS ORDERED: FLU VACC QS2016-17 36MOS UP/PF 0.5 ML SYRINGE IM ONE (11:39)
[2016-05-19 11:56] VITALS: BP 118/80
== END 2016-05-19 13:40 | disposition home or self-care (01) ==
LOC: 3NENU 02:50 → EMEROO 02:50 → SUATTDRO 10:11 → 3NENU 10:55
PROVIDERS: ADMIT Internal Medicine; ATTEND Internal Medicine

== ENCOUNTER 2016-08-07 14:10 | Inpatient (IN) ==
[2016-08-07 15:49] LABS: Bilirubin,Urine Negative (Negative); Blood,Urine Small (Negative); Clarity,Urine Cloudy (Clear); Color,Urine Yellow (Yellow); Glucose,Urine (UA) Normal (Normal); Ketones,Urine Negative (Negative); Leukocyte Esterase,Urine Moderate (Negative); Nitrite,Urine Negative (Negative); PH,Urine 6.5 pH Units (5.0-8.0); Protein,Urine Negative (Neg-Trace); Specific Gravity,Urine 1.016 (1.010-1.025); Urobilinogen,Urine Normal (Normal)
[2016-08-07 15:51] LABS: Bacteria,Urine Many per hpf (None-Few); Hyaline Casts,Urine None Seen per lpf (None-Few); Squamous Epithelial Cell,Urine Many per lpf (None-Few); WBC,Urine 30-50 per hpf (0-3)
[2016-08-07 15:55] LABS: Amphetamine Screen,Urine Negative ng/mL (Cutoff=1000); Barbiturate Screen,Urine Negative ng/mL (Cutoff=200); Benzodiazepines Screen,Urine Negative ng/mL (Cutoff=200); Cannabinoid Screen,Urine Positive ng/mL (Cutoff = 50); Cocaine Screen,Urine Negative ng/mL (Cutoff= 300); Opiate Screen,Urine Negative ng/mL (Cutoff=300); Phencyclidine Screen,Urine Negative ng/mL (Cutoff=25)
[2016-08-07 16:46] LABS: Basophils % 0.4 %; Eosinophils % 0.3 %; Hematocrit 47.6 % (35.3-44.9); Immature Granulocytes % 0.5 % (0-4); Lymphocytes # 2.4 K/mcL (0.6-4.6); Mean Corpuscular HGB Conc 33.6 g/dL (31.6-35.5); Mean Corpuscular Hemoglobin 28.5 pg (28.0-33.3); Mean Corpuscular Volume 84.7 fL (83.0-100.0); Mean Platelet Volume 9.8 fL (9.4-12.4); Monocytes % 9.7 %; Platelet Count 286 K/mcL (140-400); Red Blood Count 5.62 M/mcL (3.82-4.97); Red Cell Distribution Width 14.2 % (11.5-14.5); Segmented Neutrophils % 66.1 %
[2016-08-07 16:51] LABS: Alanine Aminotransferase 23 Units/L (0-55); Albumin 3.9 g/dL (3.5-5.0); Alkaline Phosphatase 98 Units/L (38-126); Aspartate Amino Transferase 17 Units/L (5-34); BUN/Creatinine Ratio 40 (6-26); Bilirubin,Direct 0.3 mg/dL (0.0-0.5); Bilirubin,Indirect 0.4 mg/dL (0.0-1.2); Bilirubin,Total 0.7 mg/dL (0.2-1.2); Blood Urea Nitrogen 45 mg/dL (7-20); Calcium 10.2 mg/dL (8.6-10.8); Carbon Dioxide 32 mEq/L (19-29); Chloride 86 mEq/L (98-109); Globulin 4.1 g/dL (2.4-3.5); Glucose 112 mg/dL (70-99); Osmolality,Calculated 286 (280-300); Potassium 3.4 mEq/L (3.5-4.5); Sodium 132 mEq/L (136-145); eGFR For African Americans 60 (> 60); eGFR For Non-African Americans 49 (> 60)
[2016-08-07 16:52] LABS: Acetaminophen < 1.0 mcg/mL (10-30); Ethanol < 10 mg/dL (0-10); Salicylate < 5.0 mg/dL (15-30)
[2016-08-07] MEDS ORDERED: Ondansetron ODT 4 MG TAB.RAPDIS SL ONE ×2 (16:52→20:52)
[2016-08-07] MEDS ORDERED: GI Cocktail 40 ML EACH PO ONE (16:53)
[2016-08-07 17:12] LABS: Thyroid Stimulating Hormone 0.701 mcIU/mL (0.350-4.840)
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
[2016-08-07] MEDS ORDERED: Ketorolac 30 MG/ML VIAL IM ONE (20:52)
--- NOTE | 2016-08-08 05:30 | Emergency Department Note ---
Disposition Clinical Impression: Suicidal ideation Disposition: Still a Patient Condition: Good Referrals: NO,PCP [Primary Care Provider] - Forms: ED Satisfaction Letter, Work/School Release General Adult HPI - General Chief complaint: ED Abdominal Pain Stated complaint: n/v, abd pain x1 week, SI Time Seen by Provider: 08/07/16 15:35 Source: patient Limitations: no limitations - History of Present Illness HPI Narrative: Please see prior providers documentation for full history and physical. This patient was signed out. Pain Scale: 0 - Related Data Home Medications Medication Instructions Recorded Confirmed Quetiapine Fumarate [Seroquel] 800 mg PO HS 11/01/14 05/17/16 Propranolol [Inderal] 20 mg PO BID 01/07/15 05/17/16 Ziprasidone [Geodon] 60 mg PO QPM 01/07/15 05/17/16 Cetirizine HCl [Zyrtec] 10 mg PO DAILY 02/19/15 05/17/16 Levothyroxine [Synthroid] 75 mcg PO DAILY 02/19/15 05/17/16 Albuterol Sulfate [Albuterol 2 puff IH Q4H PRN 05/17/16 05/17/16 Inhaler] Beclomethasone Diprop 40mcg [QVAR 1 puff IH DAILY 05/17/16 05/17/16 40 mcg] Hydrochlorothiazide 25 mg PO DAILY 05/17/16 05/17/16 Omeprazole [PriLOSEC] 20 mg PO BID 05/17/16 05/17/16 Previous Rx's Medication Instructions Recorded Ondansetron ODT [Zofran ODT] 4 mg SL Q8HR #14 tab.rapdis 12/12/15 Promethazine [Phenergan] 25 mg PO Q8HR #10 tablet 12/12/15 Amoxicillin/Clavulanate [Augmentin] 875 mg PO BIDWM #8 tablet 05/19/16 Allergies Allergy/AdvReac Type Severity Reaction Status Date / Time acetaminophen [From Tylenol] Allergy Mild Hives Verified 08/07/16 15:09 Constitutional: Denies: fever, chills, weakness Cardiovascular: Denies: chest pain, palpitations Respiratory: Denies: cough, dyspnea Gastrointestinal: Reports: abdominal pain, nausea. Denies: vomiting Genitourinary: Denies: urgency, dysuria Musculoskeletal: Denies: back pain Endocrine: Denies: fatigue Past Medical History - Past Medical History Medical history: Reports: GERD, hypertension, kidney stones, migraine, other Surgical history: Reports: cholecystectomy, orthopedic, other Psychiatric history: Reports: bipolar, schizophrenia, other - Social History Smoking Status: Current every day smoker Smokeless Tobacco Status: No Alcohol use: Reports: none Drug use: Reports: marijuana Physical Exam - General Limitations: no limitations General appearance: alert, in no apparent distress Course Course Narrative: Patient is awaiting placement. Patient resting comfortably in the emergency department since signout with no complaints. - Reevaluation(s) Reevaluation #1: Spoke with [facility] states that the patient is still awaiting placement. If there is discharges in-house today, the patient would likely be placed here. Patient is resting in no acute distress. Time: 05:30 Vital Signs Temperature 98.2 F 08/07/16 15:02 Pulse Rate 116 08/07/16 15:02 Respiratory Rate 16 08/07/16 15:02 Blood Pressure 121/87 08/07/16 15:02 O2 Sat by Pulse Oximetry 94 08/07/16 15:02 Temperature 98.2 F 08/07/16 15:02 Pulse Rate 108 08/08/16 06:22 Respiratory Rate 20 08/08/16 06:22 Blood Pressure 128/92 08/08/16 06:22 O2 Sat by Pulse Oximetry 95 08/08/16 06:22 Oxygen Delivery Oxygen Delivery Room Air Medical Decision Making - MDM Narrative Medical decision making narrative: Patient was signed out to me at the beginning of the shift. is resting comfortably in no acute distress. There is no concern for any change in the patients history of physical since seen by prior provider. Spoke with psychiatry and [facility] stating that they are still awaiting placement. All current placement facilities are full or have declined placement. Patient will possibly be admitted to [facility] pending any potential discharges. This patient will also be signed out to oncoming providers. - Lab Data Lab results reviewed: Yes I reviewed the patient's lab results. Result diagrams: 08/07/16 16:28 08/07/16 16:28 Lab Results 08/07/16 08/07/16 08/07/16 Range/Units 15:40 15:42 16:28 WBC 10.6 (4.3-11.1) K/mcL RBC 5.62 H (3.82-4.97) M/mcL Hgb 16.0 H (11.5-15.4) g/dL Hct 47.6 H (35.3-44.9) % MCV 84.7 (83.0-100.0) fL MCH 28.5 (28.0-33.3) pg MCHC 33.6 (31.6-35.5) g/dL RDW 14.2 (11.5-14.5) % Plt Count 286 (140-400) K/mcL MPV 9.8 (9.4-12.4) fL Immature Gran % 0.5 (0-4) % Seg Neutrophils % 66.1 % Lymphocytes % 23.0 % Monocytes % 9.7 % Eosinophils % 0.3 % Basophils % 0.4 % Neutrophils # 7.0 (1.6-8.9) K/mcL Lymphocytes # 2.4 (0.6-4.6) K/mcL Monocytes # 1.0 (0.0-1.3) K/mcL Eosinophils # 0.0 (0.0-0.6) K/mcL Basophils # 0.0 (0.0-0.2) K/mcL Sodium (136-145) mEq/L Potassium (3.5-4.5) mEq/L Chloride (98-109) mEq/L Carbon Dioxide (19-29) mEq/L BUN (7-20) mg/dL Creatinine (0.57-1.11) mg/dL Est GFR ( Amer) (> 60) Est GFR (Non-Af Amer) (> 60) BUN/Creatinine Ratio (6-26) Glucose (70-99) mg/dL Calculated Osmolality (280-300) Calcium (8.6-10.8) mg/dL Total Bilirubin (0.2-1.2) mg/dL Direct Bilirubin (0.0-0.5) mg/dL Indirect Bilirubin (0.0-1.2) mg/dL AST (5-34) Units/L ALT (0-55) Units/L Alkaline Phosphatase (38-126) Units/L Serum Total Protein (6.0-8.3) g/dL Albumin (3.5-5.0) g/dL Globulin (2.4-3.5) g/dL Albumin/Globulin Ratio (1.1-2.2) TSH (0.350-4.840) mcIU/mL Urine Color Yellow (Yellow) Urine Clarity Cloudy A (Clear) Urine pH 6.5 (5.0-8.0) pH Units Ur Specific [place] 1.016 (1.010-1.025) Urine Protein Negative (Neg-Trace) mg/dL Urine Glucose (UA) Normal (Normal) mg/dL Urine Ketones Negative (Negative) mg/dL Urine Blood Small H (Negative) Urine Nitrite Negative (Negative) Urine Bilirubin Negative (Negative) Urine Urobilinogen Normal (Normal) mg/dL Ur Leukocyte Esterase Moderate H (Negative) Urine Microscopic RBC 3-5 H (0-3) per hpf Urine Microscopic WBC 30-50 H (0-3) per hpf Ur Squamous Epith Cells Many H (None-Few) per lpf Urine Bacteria Many H (None-Few) per hpf Hyaline Casts None Seen (None-Few) per lpf Salicylates (15-30) mg/dL Urine Opiates Screen Negative (Suimsr=398) ng/mL Acetaminophen (10-30) mcg/mL Ur Barbiturates Screen Negative (Wevogu=451) ng/mL Ur Phencyclidine Scrn Negative (Cutoff=25) ng/mL Ur Amphetamines Screen Negative (Tqrttv=0470) ng/mL U Benzodiazepines Scrn Negative (Qrtbwl=467) ng/mL Urine Cocaine Screen Negative (Cutoff= 300) ng/mL U Marijuana (THC) Screen Positive H (Cutoff = 50) ng/mL Ethyl Alcohol (0-10) mg/dL 08/07/16 Range/Units 16:28 WBC (4.3-11.1) K/mcL RBC (3.82-4.97) M/mcL Hgb (11.5-15.4) g/dL Hct (35.3-44.9) % MCV (83.0-100.0) fL MCH (28.0-33.3) pg MCHC (31.6-35.5) g/dL RDW (11.5-14.5) % Plt Count (140-400) K/mcL MPV (9.4-12.4) fL Immature Gran % (0-4) % Seg Neutrophils % % Lymphocytes % % Monocytes % % Eosinophils % % Basophils % % Neutrophils # (1.6-8.9) K/mcL Lymphocytes # (0.6-4.6) K/mcL Monocytes # (0.0-1.3) K/mcL Eosinophils # (0.0-0.6) K/mcL Basophils # (0.0-0.2) K/mcL Sodium 132 L (136-145) mEq/L Potassium 3.4 L (3.5-4.5) mEq/L Chloride 86 L (98-109) mEq/L Carbon Dioxide 32 H (19-29) mEq/L BUN 45 H (7-20) mg/dL Creatinine 1.13 H (0.57-1.11) mg/dL Est GFR ( Amer) 60 (> 60) Est GFR (Non-Af Amer) 49 L (> 60) BUN/Creatinine Ratio 40 H (6-26) Glucose 112 H (70-99) mg/dL Calculated Osmolality 286 (280-300) Calcium 10.2 (8.6-10.8) mg/dL Total Bilirubin 0.7 (0.2-1.2) mg/dL Direct Bilirubin 0.3 (0.0-0.5) mg/dL Indirect Bilirubin 0.4 (0.0-1.2) mg/dL AST 17 (5-34) Units/L ALT 23 (0-55) Units/L Alkaline Phosphatase 98 (38-126) Units/L Serum Total Protein 8.0 (6.0-8.3) g/dL Albumin 3.9 (3.5-5.0) g/dL Globulin 4.1 H (2.4-3.5) g/dL Albumin/Globulin Ratio 1.0 L (1.1-2.2) TSH 0.701 (0.350-4.840) mcIU/mL Urine Color (Yellow) Urine Clarity (Clear) Urine pH (5.0-8.0) pH Units Ur Specific [place] (1.010-1.025) Urine Protein (Neg-Trace) mg/dL Urine Glucose (UA) (Normal) mg/dL Urine Ketones (Negative) mg/dL Urine Blood (Negative) Urine Nitrite (Negative) Urine Bilirubin (Negative) Urine Urobilinogen (Normal) mg/dL Ur Leukocyte Esterase (Negative) Urine Microscopic RBC (0-3) per hpf Urine Microscopic WBC (0-3) per hpf Ur Squamous Epith Cells (None-Few) per lpf Urine Bacteria (None-Few) per hpf Hyaline Casts (None-Few) per lpf Salicylates < 5.0 L (15-30) mg/dL Urine Opiates Screen (Sksimb=871) ng/mL Acetaminophen < 1.0 L (10-30) mcg/mL Ur Barbiturates Screen (Vchgju=157) ng/mL Ur Phencyclidine Scrn (Cutoff=25) ng/mL Ur Amphetamines Screen (Dahvpj=2525) ng/mL U Benzodiazepines Scrn (Yhasnm=569) ng/mL Urine Cocaine Screen (Cutoff= 300) ng/mL U Marijuana (THC) Screen (Cutoff = 50) ng/mL Ethyl Alcohol < 10 (0-10) mg/dL S.B.A.R. - S.B.A.R. Situation: Demographics Background: Presenting Complaint Assessment: Vital Signs, Course and respsone to treatment, Patient/Family Expectation Recommendation: Barrier(s) to disposition (Awaiting placement ), Recommendation based on pending studies, treatments, or consults S.B.A.R. Report Given to: Dr. Laughlin S.B.A.RJaswinder Repor Time: 06:39 Attestation Statement - Attestation Attestation: I, Chad Hutton, examined this patient and my medical decision-making was reviewed with the CODE MACHINE OPERATOR/PA/Advanced Practice Nurse/Resident Physician. I agree with the documented findings, disposition and treatment plan as described except to the extent set forth below. 61-year-old female received in sign out from Dr. Escalante pending disposition. Patient slept peacefully throughout the night and did not have further concerns or complaints. Patient is pending placement at mental health facility. Patient was found to require inpatient care due to audio hallucinations and suicidal ideation. Patient will be signed out to the [facility] physician pending disposition and reevaluation.
[2016-08-08] MEDS ORDERED: Mag Hydrox/Al Hydrox/Simeth 30 ML UDC PO STA (15:17)
--- NOTE | 2016-08-08 15:22 | Emergency Department Note ---
START Narrative - START START: Pt seen overnight, boarded in ED awaiting psychiatric bed. Asked to see pt bc pink slip needed to send pt upstairs. Evaluated by psych, they agreed with overnight doc that pt required admission for suicidal ideation. On my eval, pt tearful, complaining of burning upper abdominal pain. Labs reviewed, unremarkable. On exam, pt has tenderness and guarding in the upper abdomen, paty in the epigastric area. No imaging had been ordered, no lipase. Gave Maalox, ordered Lipase and CT abd, jermaine cisneros completed - will complete medical clearance prior to psychiatric admission.
[2016-08-08] MEDS ORDERED: Dicyclomine 20 MG/2 ML AMPUL IM STA (16:16)
[2016-08-08 16:18] LABS: Lipase 31 Units/L (8-78)
--- NOTE | 2016-08-08 16:19 | Emergency Department Note ---
START Narrative - START START: CT reviewed, non-acute. Discussed incidental finding of 3 cm AAA w pt, she was aware of its presence but isn't following w a physician for it - counseled her to follow up with her doctor when she is discharged, make him aware of the diagnosis, and make sure it is re-assessed in about 3 years. She voiced understanding and agrees. Lipase pending, will send to psych if negative.
[2016-08-08] MEDS ORDERED: Haloperidol Lactate 5 MG/ML VIAL IM STA (16:32)
[2016-08-08] MEDS ORDERED: *HR* LORazepam 2 MG/ML VIAL IM STA (16:33)
[2016-08-08] MEDS ORDERED: Haloperidol Lactate 5 MG/ML VIAL ONE (16:33)
[2016-08-08] MEDS ORDERED: *HR* LORazepam 2 MG/ML VIAL ONE (16:34)
[2016-08-08] MEDS ORDERED: *HR* LORazepam 1 MG TABLET PO PRN (17:36)
[2016-08-08] MEDS ORDERED: Ibuprofen 400 MG TABLET PO PRN (17:36)
[2016-08-08] MEDS ORDERED: traZODone 50 MG TABLET PO PRN (17:36)
[2016-08-08] MEDS ORDERED: Mag Hydrox/Al Hydrox/Simeth 30 ML UDC PO PRN (17:36)
[2016-08-08] MEDS ORDERED: *HR* LORazepam 2 MG/ML VIAL IM PRN (17:36)
[2016-08-08] MEDS ORDERED: MOM Conc 10 ML UD.LIQ PO PRN (17:36)
[2016-08-08] MEDS ORDERED: Haloperidol Lactate 5 MG/ML VIAL IM PRN (17:36)
[2016-08-08] MEDS ORDERED: NON-FORMULARY MEDICATION 1 EACH EACH (Quetiapine Fumarate [Seroquel] 800 MG) PO SCH (21:00)
[2016-08-08] MEDS: Ziprasidone 20 MG CAPSULE PO SCH (21:43)
[2016-08-09] MEDS: amLODIPine 5 MG TABLET PO SCH (09:14)
[2016-08-09] MEDS: Loratadine 10 MG TABLET PO SCH (09:14)
[2016-08-09] MEDS: hydroCHLOROthiazide 25 MG TABLET PO SCH (09:14)
[2016-08-09] MEDS: Beclomethasone 40mcg MDI IH SCH (12:27)
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
[2016-08-09] MEDS: Ziprasidone 20 MG CAPSULE PO SCH (17:48)
[2016-08-10] MEDS: amLODIPine 5 MG TABLET PO SCH (09:00)
[2016-08-10] MEDS: Loratadine 10 MG TABLET PO SCH (09:00)
[2016-08-10] MEDS: Beclomethasone 40mcg MDI IH SCH (09:00)
[2016-08-10] MEDS: hydroCHLOROthiazide 25 MG TABLET PO SCH (09:00)
--- NOTE | 2016-08-10 10:37 | Psychiatry Progress Note ---
Date of Encounter: 08/10/16 Time of Encounter: 10:32 Subjective Interval history: Feeling a little better now that she is back on her home meds. Reported she didn't sleep well last night. Staff indicated she did get up a couple of times but that when she was in her room she was sleeping hard. Able to eat. Stomach tolerating 100% of breakfast so far. More future oriented today. Looking forward to moving to [place] with daughter. Agreeable to respite care while she waits as current home environment is unsafe. [facility] to come out and evaluate her today. Denying suicidal and homicidal ideation, plan, or intent at current time. Review of Systems Constitutional: Reports: weakness. Denies: fever, chills, weight change Eyes: Denies: eye pain, vision change Ears, Nose, Throat: Denies: ear pain, throat pain, dental pain, hearing loss, congestion Cardiovascular: Denies: chest pain, palpitations, dyspnea on exertion Respiratory: Denies: cough, dyspnea, wheezes Gastrointestinal: Reports: abdominal pain, nausea. Denies: vomiting, diarrhea, constipation Musculoskeletal: Denies: joint swelling, joint pain Neurological: Denies: headache, weakness, numbness, memory loss Objective: Exam Patient orientation: Yes Person, Yes Time, Yes Place Level of alertness: Alert Patient appearance: Appropriate Behavior: calm, cooperative Psychomotor activity: Slowed Eye contact: Maintains Eye Contact Mood description: Depressed Affect description: congruent with mood Speech pattern: Normal rate, Normal rhythm, Normal tone Speech volume: Normal Thought process: Linear, Goal Oriented Thought content: No Suicidal ideation, No Homicidal ideation, No Overt delusions Perceptual disturbances: No Auditory hallucinations, No Visual hallucinations Judgment: Fair Insight: Partial Results - Vital Signs Vital Signs: Temp Pulse Resp BP Pulse Ox 97.8 F 105 18 130/97 95 08/10/16 09:00 08/10/16 09:00 08/10/16 09:00 08/10/16 09:00 08/08/16 15:46 - Labs Labs: Laboratory Results - last 24 hr 08/09/16 14:45 POC Glucose 107 H - Impressions ITS Impressions Abdomen/Pelvis CT 08/08/16 15:18 IMPRESSION: 1. Stable multifocal left hepatic lobe peripheral hypodensity suggesting focal fat infiltration. 2. Prior cholecystectomy with no evidence of biliary obstruction. 3. No acute abdominal/pelvic inflammatory process. 4. 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 5. Abdominal aortic atherosclerosis with 3 cm infrarenal abdominal aortic aneurysm. Follow-up is recommended every 3 years. D/ / 08/08/2016 16:28:31 Jose Mars MD / jorge luis Interpreting Provider: Jose Mars MD Assessment and Plan (1) Suicidal ideation Current visit: Yes Status: Acute Plan: Continue hospitalization, Close observation, Suicide Precautions per unit protocol, Encourage participation in unit milieu, Group Therapy, Monitor sleep, Monitor appetite, Secure weapons Risks, benefits, side effects, alternatives discussed w/pt: Yes Patient agreeable to treatment: Yes Consult Discharge Plan - Plan Referrals: NO,PCP [Primary Care Provider] -
[2016-08-10] MEDS: Nicotine 7 MG PATCH.TD24 TD SCH (12:20)
[2016-08-10] MEDS: Ziprasidone 20 MG CAPSULE PO SCH (18:04)
[2016-08-11] MEDS: Nicotine 7 MG PATCH.TD24 TD SCH (08:38)
[2016-08-11] MEDS: hydroCHLOROthiazide 25 MG TABLET PO SCH (08:39)
[2016-08-11] MEDS: Loratadine 10 MG TABLET PO SCH (08:39)
[2016-08-11] MEDS: amLODIPine 5 MG TABLET PO SCH (08:40)
[2016-08-11] MEDS: Beclomethasone 40mcg MDI IH SCH (08:41)
--- NOTE | 2016-08-11 09:12 | Psychiatry Progress Note ---
Date of Encounter: 08/11/16 Time of Encounter: 09:09 Subjective Interval history: Looking better. More affect. Denying SI. Staff report she has been pleasant and interacting well with peers. Seems to be eating and sleeping well. Still feels "woozy" but able to keep food down. Drinking milk to coat her stomach helps but she sometimes feels reluctant to ask for it. Looking forward to [place] and time spent with daughter. Future oriented. Evaluated by [facility] yesterday and they will have a bed for her on Saturday. Plan to discharge Saturday to respite care. Review of Systems Constitutional: Denies: fever, chills, weakness, weight change Eyes: Denies: eye pain, vision change Ears, Nose, Throat: Denies: ear pain, throat pain, dental pain, hearing loss, congestion Cardiovascular: Denies: chest pain, palpitations, dyspnea on exertion Respiratory: Denies: cough, dyspnea, wheezes Gastrointestinal: Reports: abdominal pain, nausea. Denies: vomiting, diarrhea, constipation Musculoskeletal: Denies: joint swelling, joint pain Neurological: Denies: headache, weakness, numbness, memory loss Objective: Exam Patient orientation: Yes Person, Yes Time, Yes Place Level of alertness: Alert Patient appearance: Appropriate Behavior: calm, cooperative Psychomotor activity: Normal Eye contact: Maintains Eye Contact Mood description: Euthymic/stable Affect description: congruent with mood, full range Speech pattern: Normal rate, Normal rhythm, Normal tone Speech volume: Normal Thought process: Linear, Goal Oriented Thought content: No Suicidal ideation, No Homicidal ideation, No Overt delusions Perceptual disturbances: No Auditory hallucinations, No Visual hallucinations Judgment: Fair Insight: Partial Results - Vital Signs Vital Signs: Temp Pulse Resp BP Pulse Ox 97.6 F 98 16 126/90 95 08/10/16 19:51 08/10/16 19:51 08/10/16 19:51 08/10/16 19:51 08/08/16 15:46 - Impressions ITS Impressions Abdomen/Pelvis CT 08/08/16 15:18 IMPRESSION: 1. Stable multifocal left hepatic lobe peripheral hypodensity suggesting focal fat infiltration. 2. Prior cholecystectomy with no evidence of biliary obstruction. 3. No acute abdominal/pelvic inflammatory process. 4. 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 5. Abdominal aortic atherosclerosis with 3 cm infrarenal abdominal aortic aneurysm. Follow-up is recommended every 3 years. D/ / 08/08/2016 16:28:31 Jose Mars MD / jorge luis Interpreting Provider: Jose Mars MD Assessment and Plan (1) Suicidal ideation Current visit: Yes Status: Acute Plan: Continue hospitalization, Close observation, Suicide Precautions per unit protocol, Encourage participation in unit milieu, Group Therapy, Monitor sleep, Monitor appetite, Secure weapons Risks, benefits, side effects, alternatives discussed w/pt: Yes Patient agreeable to treatment: Yes Consult Discharge Plan - Plan Additional Instructions: 22/10 mental health crisis line for [facility]: [phone] Referrals: [facility] [Outside] (You are going into respite at [facility] on discharge from the hospital. While there, clinic staff will open a case for you to become a client , and you will be seen daily by the clinic counselors and hospice case manager. )
[2016-08-11] MEDS: Ziprasidone 20 MG CAPSULE PO SCH (18:01)
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
[2016-08-12] MEDS: Nicotine 7 MG PATCH.TD24 TD SCH (09:28)
[2016-08-12] MEDS: hydroCHLOROthiazide 25 MG TABLET PO SCH (09:29)
[2016-08-12] MEDS: amLODIPine 5 MG TABLET PO SCH (09:29)
[2016-08-12] MEDS: Loratadine 10 MG TABLET PO SCH (09:30)
[2016-08-12] MEDS: Beclomethasone 40mcg MDI IH SCH (11:13)
[2016-08-12] MEDS: Ziprasidone 20 MG CAPSULE PO SCH (18:00)
[2016-08-12] MEDS ORDERED: traZODone 50 MG TABLET PO SCH (21:00)
[2016-08-13] MEDS: Loratadine 10 MG TABLET PO SCH (09:42)
[2016-08-13] MEDS: amLODIPine 5 MG TABLET PO SCH (09:43)
[2016-08-13] MEDS: Nicotine 7 MG PATCH.TD24 TD SCH (09:43)
[2016-08-13] MEDS: Beclomethasone 40mcg MDI IH SCH (09:44)
[2016-08-13] MEDS: hydroCHLOROthiazide 25 MG TABLET PO SCH (09:45)
[2016-08-13 10:24] VITALS: BP 107/78
--- NOTE | 2016-08-13 11:24 | Discharge Summary ---
Date of Encounter: 08/13/16 Time of Encounter: 11:00 Diagnosis - Discharge Diagnosis (1) Schizophrenia Status: Chronic Qualifiers: Schizophrenia type: undifferentiated schizophrenia Qualified Code(s): F20.3 - Undifferentiated schizophrenia Medications - Discharge Medications Prescriptions: Quetiapine Fumarate [Seroquel] 800 mg PO HS #60 tablet traZODone [TraZODone] 100 mg PO HS #60 tablet Propranolol [Inderal] 20 mg PO BID 01/07/15 [History] Ziprasidone [Geodon] 60 mg PO QPM 01/07/15 [History] Cetirizine HCl [Zyrtec] 10 mg PO DAILY 02/19/15 [History] Levothyroxine [Synthroid] 75 mcg PO DAILY 02/19/15 [History] Albuterol Sulfate [Albuterol Inhaler] 2 puff IH Q4H PRN 05/17/16 [History] Beclomethasone Diprop 40mcg [QVAR 40 mcg] 1 puff IH DAILY 05/17/16 [History] Omeprazole [PriLOSEC] 20 mg PO BID 05/17/16 [History] hydroCHLOROthiazide [Hydrochlorothiazide] 25 mg PO DAILY 05/17/16 [History] amLODIPine [Norvasc] 5 mg PO DAILY 08/08/16 [History] Quetiapine Fumarate [Seroquel] 800 mg PO HS #60 tablet 08/13/16 [Rx] traZODone [TraZODone] 100 mg PO HS #60 tablet 08/13/16 [Rx] Allergies acetaminophen [From Tylenol] Allergy (Mild, Verified 08/07/16 15:09) Hives Results Procedures and tests throughout hospitalization: Completed Imaging Orders Category Date Time Status CT abd pelvis wo no iv no oral [CT] Stat Cat Scan 08/08/16 15:18 Completed Provider Date of admission: 08/08/16 15:16 Primary care physician: PCP NO Discharging clinician: [facility] Assessment and Plan - Patient/Caregiver Discharge Instructions Activity: resume usual activities as tolerated Diet: regular diet Additional Instructions: 22/10 mental health crisis line for [facility]: [phone] - Follow up Plan Follow up with: [facility] [Outside] (You are going into respite at [facility] on discharge from the hospital. While there, clinic staff will open a case for you to become a client , and you will be seen daily by the clinic counselors and major case detective. ) Functional capacity at discharge: independent ambulation Overall status at discharge: Stable Disposition: Home, Self-Care Hospital Course Hospital course: Ms. Banks is a 61 year old female admitted for depression and suicidal ideation and noncompliance with medication. For details of the admission please see H&P On the unit patient was started on medication including Geodon, Seroquel and trazodone. She reported improvement in mood and sleep. She denies suicidal ideation she participated in activities. Her discharge plans were completed our social media analyst. Prior to discharge patient was medically stable, denies suicidal ideation and look forward to move to [place] with her daughter. - Time Spent with Patient Total time spent providing and/or coordinating discharge services: Less than 30 minutes Quality - Multiple Antipsychotics Patient discharged on 2 or more antipsychotic medications: Yes - Justification Documentation of: Other justification (Severe insomnia not responding to monotherapy) Procedures - Procedures Procedures: Medication Management, Crisis Stabilization, Supportive Therapy, Group Therapy, Psychoeducational Therapy Mental Status Exam - Mental Status Exam Patient orientation: Yes Person, Yes Time, Yes Place Level of alertness: Alert Patient appearance: Appropriate, Well Groomed Behavior: calm, cooperative Psychomotor activity: Normal Eye contact: Maintains Eye Contact Mood description: Euthymic/stable Affect description: congruent with mood, full range Speech pattern: Normal rate, Normal rhythm, Normal tone Speech Volume: Normal Thought process: Linear, Goal Oriented Thought Content: No Suicidal ideation, No Homicidal ideation, No Overt delusions Perceptual Disturbances: No Auditory hallucinations, No Visual hallucinations Judgment: Limited Insight: Partial
--- NOTE | 2016-08-13 16:57 | Electrocardiograph Report ---
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
== END 2016-08-13 12:50 | disposition home or self-care (01) | DRG 750 ==
LOC: EMEROO 14:10 → SUATTDRO 08-08 15:16 → 1ANU 08-08 15:16
PROVIDERS: ADMIT Psychiatry & Neurology Psychiatry; ATTEND Psychiatry & Neurology Psychiatry

== ENCOUNTER 2017-01-24 00:05 | Inpatient (IN) ==
[2017-01-24] MEDS ORDERED: Ondansetron 4 MG/2 ML VIAL IVP ONE ×2 (00:09→01:35)
[2017-01-24] MEDS ORDERED: *HR* Morphine 2 MG/ML SYRINGE IVP ONE (00:09)
[2017-01-24] MEDS ORDERED: 0.9 % Sodium Chloride 1,000 ML IVC ONE ×2 (00:09→02:15)
[2017-01-24 00:42] LABS: Basophils # 0.1 K/mcL (0.0-0.2); Basophils % 0.4 %; Hematocrit 47.6 % (35.3-44.9); Hemoglobin 15.9 g/dL (11.5-15.4); Immature Granulocytes % 0.5 % (0-4); Lymphocytes # 1.7 K/mcL (0.6-4.6); Lymphocytes % 10.4 %; Mean Corpuscular HGB Conc 33.4 g/dL (31.6-35.5); Mean Corpuscular Hemoglobin 28.4 pg (28.0-33.3); Mean Corpuscular Volume 85.2 fL (83.0-100.0); Mean Platelet Volume 9.7 fL (9.4-12.4); Monocytes # 0.8 K/mcL (0.0-1.3); Monocytes % 4.8 %; Neutrophils # 13.7 K/mcL (1.6-8.9); Platelet Count 338 K/mcL (140-400); Red Blood Count 5.59 M/mcL (3.82-4.97); Red Cell Distribution Width 14.8 % (11.5-14.5); Segmented Neutrophils % 83.9 %
[2017-01-24 00:44] LABS: Bilirubin,Urine Small (Negative); Blood,Urine Moderate (Negative); Clarity,Urine Cloudy (Clear); Color,Urine Dark Yellow (Yellow); Glucose,Urine (UA) Normal (Normal); Ketones,Urine Negative (Negative); Leukocyte Esterase,Urine Moderate (Negative); Nitrite,Urine Negative (Negative); PH,Urine 5.5 pH Units (5.0-8.0); Protein,Urine 100 mg/dL (Neg-Trace); Urobilinogen,Urine Normal (Normal)
[2017-01-24 00:46] LABS: Bacteria,Urine Many per hpf (None-Few); Hyaline Casts,Urine Moderate per lpf (None-Few); Squamous Epithelial Cell,Urine Many per lpf (None-Few)
[2017-01-24 00:56] LABS: Albumin 4.5 g/dL (3.5-5.0); Albumin/Globulin Ratio 0.9 (1.1-2.2); Bilirubin,Direct 0.3 mg/dL (0.0-0.5); Bilirubin,Indirect 0.4 mg/dL (0.0-1.2); Bilirubin,Total 0.7 mg/dL (0.2-1.2); Calcium 10.5 mg/dL (8.6-10.8); Total Protein 9.3 g/dL (6.0-8.3)
[2017-01-24 00:57] LABS: WBC,Urine 15-30 per hpf (0-3)
[2017-01-24 00:57] LABS: Globulin 4.8 g/dL (2.4-3.5)
[2017-01-24] MEDS ORDERED: *HR* HYDROmorphone (PF) 1 MG/ML SYRINGE IVP ONE (00:58)
--- NOTE | 2017-01-24 01:59 | Emergency Department Note ---
Disposition Clinical Impression: Acute kidney injury, Lactic acidosis Sepsis Qualifiers: Sepsis type: sepsis due to unspecified organism Qualified Code(s): A41.9 - Sepsis, unspecified organism UTI (urinary tract infection) Qualifiers: Indwelling urinary catheter type: unspecified Encounter type: initial encounter Disposition: Admitted As Inpatient Condition: Fair Time of Disposition: 02:53 Abdominal Pain HPI - General Chief Complaint: ED Abdominal Pain Stated Complaint: N/V/abd pain Time Seen by Provider: 01/24/17 00:09 Source: patient, EMS Nursing Notes Reviewed: Yes Vital Signs Reviewed: Yes - History of Present Illness HPI Narrative: Mrs. Banks, 61-year-old female, presents from home via EMS for evaluation of right upper quadrant pain. Onset 8 AM Saturday morning and persistent throughout the day. She has associated nausea, loose bowels 1 (non-melanotic, no hematochezia), vomiting (bilious but nonbloody). No fever or chills. No chest pains or dyspnea. Habits: Currently readily smoker PMH: Cholecystectomy, migraine, hypertension, GERD, history of nephrolithiasis. Pain Scale: 10 - Related Data Home Medications Medication Instructions Recorded Confirmed Propranolol [Inderal] 20 mg PO BID 01/07/15 08/08/16 Ziprasidone [Geodon] 60 mg PO QPM 01/07/15 08/08/16 Cetirizine HCl [Zyrtec] 10 mg PO DAILY 02/19/15 08/08/16 Levothyroxine [Synthroid] 75 mcg PO DAILY 02/19/15 08/08/16 Albuterol Sulfate [Albuterol 2 puff IH Q4H PRN 05/17/16 08/08/16 Inhaler] Beclomethasone Diprop 40mcg [QVAR 1 puff IH DAILY 05/17/16 08/08/16 40 mcg] Omeprazole [PriLOSEC] 20 mg PO BID 05/17/16 08/08/16 hydroCHLOROthiazide 25 mg PO DAILY 05/17/16 08/08/16 [Hydrochlorothiazide] amLODIPine [Norvasc] 5 mg PO DAILY 08/08/16 08/08/16 Previous Rx's Medication Instructions Recorded Quetiapine Fumarate [Seroquel] 800 mg PO HS #60 tablet 08/13/16 traZODone [TraZODone] 100 mg PO HS #60 tablet 08/13/16 Allergies Allergy/AdvReac Type Severity Reaction Status Date / Time acetaminophen [From Tylenol] Allergy Mild Hives Verified 08/07/16 15:09 All systems ED: reviewed and negative except as stated. Abdominal Pain PMH - Past Medical History Medical history: Reports: COPD, GERD, hypertension, kidney stones, migraine, other Female Surgical History: Reports: cholecystectomy, orthopedic, other Psychiatric history: Reports: bipolar, depression - Social History Smoking status: Current every day smoker Alcohol use: Reports: none Drug use: Reports: marijuana Physical Exam Vital Signs Reviewed General: Patient is alert, oriented, tearful, and in acute distress from her abdominal pain. HEENT: No facial asymmetry. Head is normocephalic and atraumatic. PERRL, EOMI. oral mucosa moist. Trachea midline. Cardiovascular: Heart regular rate and rhythm without clicks, rubs, gallops, or murmurs. No JVD. PMI nondisplaced. Respiratory: Symmetric chest rise with good respiratory effort. Bilateral breath sounds are clear without wheezing, crackles, or rhonchi. Abdomen: Bowel sounds present normoactive x-4 quadrants. Abdomen is soft, nondistended. Right upper quadrant tenderness to palpation. No rebound tenderness or guarding. Unable to assess for organomegaly given patient's emotional state. Psych: Patient's affect is tearful and emotional. - General Limitations: no limitations General appearance: alert, in no apparent distress Course Course Narrative: Patient's history of cholecystectomy though biliary stones are still possible in the biliary tract. [place] is possible; will draw lipase. Abdominal exam is nonsurgical; small bowel traction unlikely. While CT abdomen pelvis with IV contrast to rule out surgical pathologies. Unknown if patient has a history of hepatitis; will draw hepatic labs. Patient has been afebrile; infectious etiology is unlikely. Patient's intake vitals were questioned because of her emotional state. She was speaking in one-word sentences on my initial evaluation not because of dyspnea but because she was tearful. After her symptoms were more properly controlled, she called and was able to answer complete sentences. At this time , her vitals were SIRS (+) with heart rate 109 and respirations 24. Begin fluid resuscitation with close monitoring. Lab work showed urinary tract infection with leukocytosis. Begin empiric Rocephin. We will admit the patient for urosepsis for continued evaluation and management. Patient's nausea and vomiting poorly controlled with repeated doses of Zofran. Well controlled with Phenergan. Abdomen/Pelvis CT 01/24/17 00:10 IMPRESSION: No acute intra-abdominal or intrapelvic abnormality on noncontrast exam. Bilateral nonobstructing nephrolithiasis, similar in appearance. D/ / Sharri Delgado MD / Sharri Delgado MD Interpreting Provider: Sharri Delgado MD Vital Signs Temperature 97.9 F 01/24/17 00:06 Pulse Rate 130 01/24/17 00:06 Respiratory Rate 36 01/24/17 00:06 Blood Pressure 172/148 01/24/17 00:06 O2 Sat by Pulse Oximetry 92 01/24/17 00:06 Temperature 97.9 F 01/24/17 00:06 Pulse Rate 91 01/24/17 02:09 Respiratory Rate 20 01/24/17 03:09 Blood Pressure 167/117 01/24/17 03:09 O2 Sat by Pulse Oximetry 94 01/24/17 02:09 Oxygen Delivery Oxygen Delivery Nasal Cannula Abdominal Pain - Lab Data Result diagrams: 01/24/17 00:33 01/24/17 00:33 Lab Results 01/24/17 01/24/17 01/24/17 Range/Units 00:23 00:33 00:33 WBC 16.3 H (4.3-11.1) K/mcL RBC 5.59 H (3.82-4.97) M/mcL Hgb 15.9 H (11.5-15.4) g/dL Hct 47.6 H (35.3-44.9) % MCV 85.2 (83.0-100.0) fL MCH 28.4 (28.0-33.3) pg MCHC 33.4 (31.6-35.5) g/dL RDW 14.8 H (11.5-14.5) % Plt Count 338 (140-400) K/mcL MPV 9.7 (9.4-12.4) fL Immature Gran % 0.5 (0-4) % Seg Neutrophils % 83.9 % Lymphocytes % 10.4 % Monocytes % 4.8 % Eosinophils % 0.0 % Basophils % 0.4 % Neutrophils # 13.7 H (1.6-8.9) K/mcL Lymphocytes # 1.7 (0.6-4.6) K/mcL Monocytes # 0.8 (0.0-1.3) K/mcL Eosinophils # 0.0 (0.0-0.6) K/mcL Basophils # 0.1 (0.0-0.2) K/mcL Sodium 142 (136-145) mEq/L Potassium 4.0 (3.5-4.5) mEq/L Chloride 103 (98-109) mEq/L Carbon Dioxide 21 (19-29) mEq/L BUN 23 H (7-20) mg/dL Creatinine 1.29 H (0.57-1.11) mg/dL Est GFR ( Amer) 51 L (> 60) Est GFR (Non-Af Amer) 42 L (> 60) BUN/Creatinine Ratio 18 (6-26) Glucose 161 H (70-99) mg/dL Calculated Osmolality 301 H (280-300) Lactic Acid (0.5-2.2) mmol/L Calcium 10.5 (8.6-10.8) mg/dL Phosphorus 4.3 (2.3-4.7) mg/dL Magnesium 2.0 (1.6-2.6) mg/dL Total Bilirubin 0.7 (0.2-1.2) mg/dL Direct Bilirubin 0.3 (0.0-0.5) mg/dL Indirect Bilirubin 0.4 (0.0-1.2) mg/dL AST 19 (5-34) Units/L ALT 25 (0-55) Units/L Alkaline Phosphatase 148 H (38-126) Units/L Serum Total Protein 9.3 H (6.0-8.3) g/dL Albumin 4.5 (3.5-5.0) g/dL Globulin 4.8 H (2.4-3.5) g/dL Albumin/Globulin Ratio 0.9 L (1.1-2.2) Lipase 10 (8-78) Units/L Urine Color Dark Yellow (Yellow) Urine Clarity Cloudy A (Clear) Urine pH 5.5 (5.0-8.0) pH Units Ur Specific [place] 1.020 (1.010-1.025) Urine Protein 100 H (Neg-Trace) mg/dL Urine Glucose (UA) Normal (Normal) mg/dL Urine Ketones Negative (Negative) mg/dL Urine Blood Moderate H (Negative) Urine Nitrite Negative (Negative) Urine Bilirubin Small H (Negative) Urine Urobilinogen Normal (Normal) mg/dL Ur Leukocyte Esterase Moderate H (Negative) Urine Microscopic RBC 5-15 H (0-3) per hpf Urine Microscopic WBC 15-30 H (0-3) per hpf Ur Squamous Epith Cells Many H (None-Few) per lpf Urine Bacteria Many H (None-Few) per hpf Hyaline Casts Moderate H (None-Few) per lpf Ur Culture Indicated? YES A (NO) 01/24/17 Range/Units 01:08 WBC (4.3-11.1) K/mcL RBC (3.82-4.97) M/mcL Hgb (11.5-15.4) g/dL Hct (35.3-44.9) % MCV (83.0-100.0) fL MCH (28.0-33.3) pg MCHC (31.6-35.5) g/dL RDW (11.5-14.5) % Plt Count (140-400) K/mcL MPV (9.4-12.4) fL Immature Gran % (0-4) % Seg Neutrophils % % Lymphocytes % % Monocytes % % Eosinophils % % Basophils % % Neutrophils # (1.6-8.9) K/mcL Lymphocytes # (0.6-4.6) K/mcL Monocytes # (0.0-1.3) K/mcL Eosinophils # (0.0-0.6) K/mcL Basophils # (0.0-0.2) K/mcL Sodium (136-145) mEq/L Potassium (3.5-4.5) mEq/L Chloride (98-109) mEq/L Carbon Dioxide (19-29) mEq/L BUN (7-20) mg/dL Creatinine (0.57-1.11) mg/dL Est GFR ( Amer) (> 60) Est GFR (Non-Af Amer) (> 60) BUN/Creatinine Ratio (6-26) Glucose (70-99) mg/dL Calculated Osmolality (280-300) Lactic Acid 2.3 H (0.5-2.2) mmol/L Calcium (8.6-10.8) mg/dL Phosphorus (2.3-4.7) mg/dL Magnesium (1.6-2.6) mg/dL Total Bilirubin (0.2-1.2) mg/dL Direct Bilirubin (0.0-0.5) mg/dL Indirect Bilirubin (0.0-1.2) mg/dL AST (5-34) Units/L ALT (0-55) Units/L Alkaline Phosphatase (38-126) Units/L Serum Total Protein (6.0-8.3) g/dL Albumin (3.5-5.0) g/dL Globulin (2.4-3.5) g/dL Albumin/Globulin Ratio (1.1-2.2) Lipase (8-78) Units/L Urine Color (Yellow) Urine Clarity (Clear) Urine pH (5.0-8.0) pH Units Ur Specific [place] (1.010-1.025) Urine Protein (Neg-Trace) mg/dL Urine Glucose (UA) (Normal) mg/dL Urine Ketones (Negative) mg/dL Urine Blood (Negative) Urine Nitrite (Negative) Urine Bilirubin (Negative) Urine Urobilinogen (Normal) mg/dL Ur Leukocyte Esterase (Negative) Urine Microscopic RBC (0-3) per hpf Urine Microscopic WBC (0-3) per hpf Ur Squamous Epith Cells (None-Few) per lpf Urine Bacteria (None-Few) per hpf Hyaline Casts (None-Few) per lpf Ur Culture Indicated? (NO) Attestation Statement - Attestation Attestation: I, Alek Rico MD, personally evaluated this patient and discussed their management with the resident physician. I reviewed the resident's note and agree with the documented findings, medical decision making, and plan of care. 61-year-old female presents to the emergency department by embolus with a complaint of right upper and epigastric abdominal pain associated with multiple episodes of nausea and vomiting. She reports the pain started about 2 days ago and vomiting one day ago. No fever. No diarrhea. No melena, hematemesis, or hematochezia. History of cholecystectomy in the past. On examination patient is a well-developed well-nourished female in moderate discomfort. She is alert and oriented 3. There is no cyanosis or diaphoresis. Breath sounds are clear and equal bilaterally. Heart tachycardic and regular. Abdomen soft with increased bowel sounds. There is moderate right upper quadrant and epigastric tenderness on direct palpation with mild guarding. No rebound tenderness. Mild right CVA tenderness. Labs reviewed. Leukocytosis. UTI present. Lactic acid 2.3. CT of the abdomen and pelvis obtained and shows no definite acute abnormality. EKG shows sinus tachycardia with a heart rate of 125. Some nonspecific ST depression. The hospitalist, Dr. Martínez, was consulted and accepted admission of the patient.
[2017-01-24] MEDS ORDERED: *HR* Promethazine 25 MG/ML VIAL IVP ONE (02:14)
[2017-01-24 02:52] LABS: Phosphorous 4.3 mg/dL (2.3-4.7)
[2017-01-24] MEDS ORDERED: Naloxone 0.4 MG/ML INJ IVP PRN (04:55)
[2017-01-24] MEDS ORDERED: Acetaminophen 325 MG TABLET PO PRN (04:55)
--- NOTE | 2017-01-24 04:55 | Internal Med History&Physical ---
Date of Encounter: 01/24/17 Time of Encounter: 04:53 Assessment and Plan (1) Severe sepsis Current visit: Yes Status: Acute Patient with underlying bilateral non obstructing kidney stones and prior UTI comes in with the lower urinary tract symptoms and is found to have UTI(sample was however dirty), she additionally met criteria for SIRS with end organ injury ; CECILY, urine and blood cultures were drawn with administration of empiric Abx per the sepsis protocol, she also received IVF boluses, we will continue antibiotics pending microbiology results at which time we will narrow Abs therapy (2) Acute kidney injury Current visit: Yes Status: Acute Baseline creatinine of 0.78, not presenting with creatinine of 1.29 in the section of sepsis, etiology is likely pre-renal, will aggressively hydrate, avoid nephrotoxins, renally dose all medications and follow BMP (3) UTI (urinary tract infection) Current visit: Yes Status: Acute per sepsis section Qualifiers: Urinary tract infection type: urethritis Qualified Code(s): N34.2 - Other urethritis (4) Gastritis Current visit: Yes Status: Acute per erosive esophagitis section Qualifiers: Gastritis type: superficial Chronicity: acute Gastritis bleeding: without bleeding Qualified Code(s): K29.00 - Acute gastritis without bleeding (5) Erosive esophagitis Current visit: Yes Status: Chronic her epigastric pain is likely on exacerbation of her underlying erosive gastroesophagitis from her nausea and vomiting, will continue her PPI (6) Schizophrenia Current visit: Yes Status: Chronic Continue home medications Qualifiers: Schizophrenia type: paranoid schizophrenia Qualified Code(s): F20.0 - Paranoid schizophrenia (7) Tobacco abuse Current visit: Yes Status: Chronic Will need smoking cessation counseling (8) HTN (hypertension) Current visit: Yes Status: Chronic She was hypertensive on presentation likely from medication non adherence in the setting of her G.I. symptoms,will resume antihypertensive with BP monitoring Qualifiers: Hypertension type: essential hypertension Qualified Code(s): I10 - Essential (primary) hypertension (9) Bipolar disorder Current visit: Yes Status: Chronic Continue home medication Qualifiers: Active/Remission status: in partial remission Most recent bipolar episode type: depressed Qualified Code(s): F31.75 - Bipolar disorder, in partial remission, most recent episode depressed (10) COPD (chronic obstructive pulmonary disease) Current visit: Yes Status: Chronic still actively smokes, and on home oxygen from the respiratory failure arising from the COPD, will continue her home oxygen, home medications with PRN nebs Qualifiers: COPD type: emphysema Emphysema type: panlobular Qualified Code(s): J43.1 - Panlobular emphysema Internal Medicine - H&P: HPI Chief complaint: abdominal pain Admitted From: Emergency Dept Plans for Post Hospital Care: Home History of present illness: Ms. Banks is a 61 year old female with history of HTN/COPD on 2-3 L/min of home oxygen/pancreatitis/erosive esophagitis/schizophrenia/polysubstance and tobacco abuse/bilateral non obstructing kidney stones/prior UTI was brought to the ER for severe abdominal pain. She reports that for about one week now she has been unwell with the following symptoms; urinary frequency, urgency, urge incontinence, concentrated urine color, offensive urine smell. She however denies dysuria. She was managing her symptoms at home until the day prior to presentation when she started having nausea, vomiting, and loose bowel movements. On the day of presentation she had severe achy epigastric and right upper quadrant pain that was constant, 6/10 in severity, radiated to her back and whole abdomen diffusely. She also reports intermittent fever and chills as well as generalized fatigue, malaise, poor appetite with poor oral intake. She came to the ER of [facility] for further management due to persistent symptoms. Past Med Surg Social Fam HX - Past Medical History Source: patient, old records reviewed Medical history: COPD, GERD, hypertension, kidney stones (bilateral), migraine, other Psychiatric history: bipolar, depression - Past Surgical History Surgical History: cholecystectomy, orthopedic, other - Social History Smoking Status: Current every day smoker Packs per day: 1/2 Smokeless Tobacco Status: No Alcohol use: none Drug use: marijuana - Family History Mother Adopted: No Living Status: Unknown Hx Family Cardiac Disorders: No Hx Family Respiratory Disorders: No Hx Family Cancer: No Hx Family GI Disorders: No Hx Family Endocrine Disorder: No Hx Family Neuromuscular Disorders: No Hx Family Neurologic Disorders: No Hx Family HEENT Disorders: No Hx Family Autoimmune Disorders: No Internal Medicine - H&P: Meds Propranolol [Inderal] 20 mg PO BID 01/07/15 [History] Cetirizine HCl [Zyrtec] 10 mg PO DAILY 02/19/15 [History] Levothyroxine [Synthroid] 75 mcg PO DAILY 02/19/15 [History] Albuterol Sulfate [Albuterol Inhaler] 2 puff IH Q4H PRN 05/17/16 [History] Beclomethasone Diprop 40mcg [QVAR 40 mcg] 1 puff IH DAILY 05/17/16 [History] Omeprazole [PriLOSEC] 20 mg PO BID 05/17/16 [History] Quetiapine Fumarate [Seroquel] 800 mg PO HS #60 tablet 08/13/16 [Rx] traZODone [TraZODone] 100 mg PO HS #60 tablet 08/13/16 [Rx] 3 Allergy/AdvReac Type Severity Reaction Status Date / Time acetaminophen [From Tylenol] Allergy Mild Hives Verified 08/07/16 15:09 All Systems PM: A 10-system review of systems was performed and is negative for pertinent findings except as documented above in the HPI. - Constitutional Vitals: Temp Pulse Resp BP Pulse Ox 98 F 93 18 165/99 96 01/24/17 04:19 01/24/17 04:19 01/24/17 04:19 01/24/17 04:19 01/24/17 04:19 GENERAL: Adult female, lying in bed, Alert, looks unwell but non toxic, appears older than stated age HEENT: NC/AT, EOMI, PERRLA, anicteric sclera, normal conjunctiva, supple, clear nares, dry mucous membranes, RESP: Lungs are clear to auscultation bilaterally, with good AE, no crackles or wheeze CARDIO: Normal heart sounds with RRR, no murmurs, no JVD, no ankle edema GI: Soft, full, tenderness in the RUQ, epigastric with right CVA tenderness, no organomegaly felt, normal bowel sounds heard MUSCULOSKELETAL: Grossly normal movements bilaterally, no deformities noted, NEUROLOGIC: CN 2-12 intact grossly. No gross motor/sensory deficit appreciated, PSYCHIATRY: AAO x 3. Mood is fair SKIN: dry skin, Internal Med - H&P Results - Labs CBC & Chem 7: 01/24/17 00:33 01/24/17 00:33 - EKG Data -: EKG Interpreted by Myself EKG shows normal: sinus rhythm Rate: tachycardia - EKG Data Prior EKG available for review: yes When compared to previous EKG: there is no significant change - Diagnostic Studies CT scan - abdomen Status: image reviewed by me
[2017-01-24] MEDS ORDERED: *HR* Morphine 2 MG/ML SYRINGE IVP PRN (04:58)
[2017-01-24] MEDS ORDERED: Albuterol 2.5 MG/3 ML NEBULIZER IH PRN (04:59)
[2017-01-24] MEDS: traZODone 50 MG TABLET PO SCH ×2 (06:25→21:30)
[2017-01-24] MEDS: 0.9 % Sodium Chloride 1,000 ML IVC SCH ×3 (06:25→21:31)
[2017-01-24] MEDS: *HR* Morphine 2 MG/ML SYRINGE IVP PRN ×3 (06:27→19:03)
[2017-01-24] MEDS: Loratadine 10 MG TABLET PO SCH (08:04)
--- NOTE | 2017-01-24 09:33 | Event Note ---
<Amanuel Escobar R - Last Filed: 01/24/17 12:30> Date of Encounter: 01/24/17 Time of Encounter: 09:18 61 year old female wiht PMH HTN, COPD (2-3L O2 at home), pancreatitis, erosive esophagitis, schizophrenia, polysubstance abuse, bilateral non-obstructing kidney stones, presents with abdominal pain, N/V, and UTI meeting severe sepsis criteria. Reports this AM she continues to have fatigue, malaise, epigastric abdominal pain, N/V, and dysuria but the medication is helping some. Denies chest pain, dyspnea, diarrhea, constipation, or leg pain/edema. EXAM: Gen: A&Ox3, in mild distress Resp: CTAB, no wheezes, rhonchi, or crackles CV: RRR, no murmurs, no edema GI: soft, non-distended, BSx4, no organomegaly. Tenderness in epigastric, RUQ, and LUQ MSK: no joint deformity, swelling, or erythema Neuro: CN grossly intact, no focal defects Skin: dry and intact PLAN: Severe Sepsis with UTI and CECILY - pending urine culture and blood cultures - continue IV fluids, antibiotics Gastritis, erosive esophagitis - continue PPI Continue home meds for HTN, Schizophrenia, Bipolar Hx substance abuse - UDS pending <Alberto Marquez P - Last Filed: 01/24/17 18:12> Date of Encounter: 01/24/17 I examined this patient and my medical decision-making was reviewed with the Resident Physician. I agree with the documented findings, disposition and treatment plan as described except to the extent set forth below.
[2017-01-24] MEDS: Ondansetron 4 MG/2 ML VIAL IVP PRN (14:33)
--- NOTE | 2017-01-24 17:07 | Electrocardiograph Report ---
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
[2017-01-25] MEDS: *HR* Morphine 2 MG/ML SYRINGE IVP PRN ×3 (00:43→22:08)
[2017-01-25 04:21] LABS: BUN/Creatinine Ratio 18 (6-26); Blood Urea Nitrogen 15 mg/dL (7-20); Carbon Dioxide 19 mEq/L (19-29); Chloride 111 mEq/L (98-109); Glucose 104 mg/dL (70-99); Magnesium 1.5 mg/dL (1.6-2.6); Osmolality,Calculated 287 (280-300); Phosphorous 2.7 mg/dL (2.3-4.7); Potassium 4.4 mEq/L (3.5-4.5); Sodium 138 mEq/L (136-145); eGFR For African Americans > 60 (> 60); eGFR For Non-African Americans > 60 (> 60)
[2017-01-25 04:45] LABS: Calcium 8.4 mg/dL (8.6-10.8)
[2017-01-25] MEDS: 0.9 % Sodium Chloride 1,000 ML IVC SCH (05:56)
[2017-01-25 06:05] LABS: Basophils # 0.1 K/mcL (0.0-0.2); Eosinophils # 0.1 K/mcL (0.0-0.6); Eosinophils % 1.3 %; Hematocrit 33.1 % (35.3-44.9); Immature Granulocytes % 0.4 % (0-4); Lymphocytes # 2.3 K/mcL (0.6-4.6); Lymphocytes % 43.5 %; Mean Corpuscular HGB Conc 31.7 g/dL (31.6-35.5); Mean Corpuscular Hemoglobin 28.1 pg (28.0-33.3); Mean Corpuscular Volume 88.5 fL (83.0-100.0); Mean Platelet Volume 9.4 fL (9.4-12.4); Monocytes # 0.5 K/mcL (0.0-1.3); Monocytes % 9.8 %; Neutrophils # 2.3 K/mcL (1.6-8.9); Red Blood Count 3.74 M/mcL (3.82-4.97); Red Cell Distribution Width 15.1 % (11.5-14.5)
[2017-01-25 06:13] LABS: Hemoglobin 10.5 g/dL (11.5-15.4); Platelet Count 155 K/mcL (140-400)
[2017-01-25] MEDS: *HR* Enoxaparin 40 MG/0.4 ML SYRINGE SQ SCH (08:38)
[2017-01-25] MEDS: Magnesium Oxide 400 MG TABLET PO SCH (09:15)
[2017-01-25] MEDS: Loratadine 10 MG TABLET PO SCH (09:15)
[2017-01-25 09:52] LABS: Basophils % 0.8 %; Eosinophils # 0.1 K/mcL (0.0-0.6); Eosinophils % 1.2 %; Hematocrit 33.9 % (35.3-44.9); Hemoglobin 10.6 g/dL (11.5-15.4); Immature Granulocytes % 0.2 % (0-4); Lymphocytes % 39.6 %; Mean Corpuscular HGB Conc 31.3 g/dL (31.6-35.5); Mean Corpuscular Hemoglobin 27.8 pg (28.0-33.3); Mean Platelet Volume 9.6 fL (9.4-12.4); Monocytes # 0.4 K/mcL (0.0-1.3); Monocytes % 8.3 %; Neutrophils # 2.5 K/mcL (1.6-8.9); Platelet Count 174 K/mcL (140-400); Red Blood Count 3.81 M/mcL (3.82-4.97); Segmented Neutrophils % 49.9 %
[2017-01-25] MEDS ORDERED: GI Cocktail 40 ML EACH PO ONE (11:06)
[2017-01-25 11:22] LABS: Hepatitis A Antibody IgM Nonreactive (Nonreactive); Hepatitis B Core IgM Nonreactive (Nonreactive); Hepatitis B Surface Antigen Nonreactive (Nonreactive)
[2017-01-25] MEDS ORDERED: cefTRIAXone 1,000 MG in Water for inj. (sterile) 10 ML IVP SCH (13:00)
[2017-01-25] MEDS ORDERED: Pantoprazole 40 MG VIAL IVP ONE (13:36)
[2017-01-25] MEDS ORDERED: Sucralfate 1 GM TABLET PO ONE (13:38)
[2017-01-25] MEDS: Sucralfate 1 GM TABLET PO SCH ×3 (14:05→22:08)
--- NOTE | 2017-01-25 14:15 | Internal Med Progress Note ---
Addendum entered and electronically signed by Amanuel Escobar DO 01/25/17 14: 50: Misdocumented Hgb: 10.4 (10.5, 10.6) - down from 15.9. Still no source of bleeding noted. Original Note: <Amanuel Escobar - Last Filed: 01/25/17 14:44> Date of Encounter: 01/25/17 Time of Encounter: 14:11 - Assessment and plan (1) Abdominal pain Current Visit: No Status: Acute Assessment and plan: Continued upper abdominal pain - guarding on exam. Sometimes reports it is worse on the right. Hx of erosive esophagitis and gastritis with previous admissions for similar symptoms. Hx cholecystectomy. Liver function normal. Was out of PPI for several months, restarted PPI about 2 months ago. Previously discharged on carafate, but wasn't taking at home I suspect this pain is an exacerbation of her gastritis/erosive esophagitis and possible chronic PUD Hgb dropped this AM (5.2, 5.0 down from 16.3), but no hematochezia, melena, hematemesis, or gross hematuria. Without a source of bleeding, drop is likely dilutional as several other parameters decreased as well CT abd/pelvis: No acute intra-abdominal or intrapelvic abnormality on noncontrast exam. Bilateral nonobstructing nephrolithiasis, similar in appearance. Plan: Switch to IV protonix, add carafate Check hepatitis profile Add colace Morphine not helping pain, GI cocktail unsuccessful - one time trial dose of dilaudid Qualifiers: Abdominal location: upper abdomen, unspecified Qualified Code(s): R10.10 - Upper abdominal pain, unspecified (2) Severe sepsis Current Visit: Yes Status: Acute Assessment and plan: Had lower urinary tract symptoms on admission, symptoms are much improved now. Urine culture was grossly mixed. Pt has improved significantly after one day, vitals improved. WBC now 5.0 (down from 16.3) Plan: Blood cultures pending Continue antibiotics for now (3) Erosive esophagitis Current Visit: Yes Status: Chronic Assessment and plan: Pain is likely an exacerbation of poorly treated esophagitis (4) Gastritis Current Visit: Yes Status: Acute Assessment and plan: As above Qualifiers: Gastritis type: superficial Chronicity: acute Gastritis bleeding: without bleeding Qualified Code(s): K29.00 - Acute gastritis without bleeding (5) Acute kidney injury Current Visit: Yes Status: Acute Assessment and plan: Cr 0.82 (from 1.29) - resolved (6) COPD (chronic obstructive pulmonary disease) Current Visit: Yes Status: Chronic Assessment and plan: Mild wheezes on exam - continue medications Qualifiers: COPD type: emphysema Emphysema type: panlobular Qualified Code(s): J43.1 - Panlobular emphysema (7) Tobacco abuse Current Visit: Yes Status: Chronic Assessment and plan: Nicotine replacement (8) HTN (hypertension) Current Visit: Yes Status: Chronic Assessment and plan: Continue meds Qualifiers: Hypertension type: essential hypertension Qualified Code(s): I10 - Essential (primary) hypertension (9) Bipolar disorder Current Visit: Yes Status: Chronic Assessment and plan: Continue home meds Qualifiers: Active/Remission status: in partial remission Most recent bipolar episode type: depressed Qualified Code(s): F31.75 - Bipolar disorder, in partial remission, most recent episode depressed (10) Schizophrenia Current Visit: Yes Status: Chronic Assessment and plan: Continue home meds Qualifiers: Schizophrenia type: paranoid schizophrenia Qualified Code(s): F20.0 - Paranoid schizophrenia - Subjective Interval history: Pt resting in bed. Reporting continued upper abdominal pain. Nausea and vomiting is improved. She reports being off PPI for several months, and just getting a prescription refilled about 2 months ago. Reports constipation as well. Denies dyspnea, chest pain, N/V/D, dysuria, or leg pain/edema. - Constitutional Vitals: Temp Pulse Resp BP Pulse Ox 98.0 F 81 20 115/87 94 01/25/17 11:44 01/25/17 11:44 01/25/17 11:44 01/25/17 11:44 01/25/17 11:44 General appearance: Present: A&O X 3, no acute distress - Head Head exam: Present: atraumatic, normocephalic - Eye Eye exam: Present: conjuntiva pink, sclera anicteric - ENT ENT exam: Present: mucous membranes moist - Neck Neck exam general surgery: Present: supple, trachea midline - Respiratory Respiratory exam: Present: wheezes. Absent: accessory muscle use, rales, rhonchi - Cardiovascular Cardiovascular exam: Present: RRR, +S1, +S2. Absent: diastolic murmur, systolic murmur - GI/Abdominal GI/Abdominal exam: Present: guarding, normal bowel sounds, soft, tenderness, no peritoneal signs. Absent: distended - Extremities Exam Extremities exam: Present: warm, radial pulses palpable and symmetrical. Absent : calf tenderness, cyanotic, pedal edema - Neurological Exam Neurological exam: Present: CN II-XII intact, oriented X3, no focal deficits. Absent: facial droop, speech deficit - Skin Skin exam: Present: dry, intact Internal Medicine: Result - Labs CBC & Chem 7: 01/25/17 14:00 01/25/17 03:39 Labs: Short CBC 01/25/17 01/25/17 Range/Units 05:51 09:12 WBC 5.2 D 5.0 (4.3-11.1) K/mcL Hgb 10.5 L D 10.6 L (11.5-15.4) g/dL Hct 33.1 L 33.9 L (35.3-44.9) % Plt Count 155 D 174 (140-400) K/mcL Neutrophils # 2.3 2.5 (1.6-8.9) K/mcL BMP 01/25/17 03:39 Sodium 138 Potassium 4.4 Chloride 111 H Carbon Dioxide 19 BUN 15 Creatinine 0.82 Glucose 104 H Calcium 8.4 L D - VTE Documentation of Mechanical Device: Intermittent pneumatic compression device Consult Discharge Plan - Plan Referrals: Chad nunez MD [Primary Care Provider] - <Alebrto Marquez P - Last Filed: 01/25/17 17:38> Date of Encounter: 01/25/17 - Constitutional Vitals: Temp Pulse Resp BP Pulse Ox 98.2 F 85 18 141/90 93 01/25/17 15:30 01/25/17 15:30 01/25/17 15:30 01/25/17 15:30 01/25/17 15:30 Internal Medicine: Result - Labs CBC & Chem 7: 01/25/17 14:00 01/25/17 03:39 - Attending Attestation I examined this patient and my medical decision-making was reviewed with the Resident Physician. I agree with the documented findings, disposition and treatment plan as described except to the extent set forth below.
[2017-01-25] MEDS ORDERED: *HR* HYDROmorphone (PF) 1 MG/ML SYRINGE IVP ONE (14:16)
[2017-01-25 14:21] LABS: Hepatitis C Virus Antibody Nonreactive (Nonreactive)
[2017-01-25 14:24] LABS: Hematocrit 33.1 % (35.3-44.9); Hemoglobin 10.4 g/dL (11.5-15.4)
[2017-01-25] MEDS: Nicotine 14 MG PATCH.TD24 TD SCH (15:30)
[2017-01-25] MEDS: Pantoprazole 40 MG VIAL IVP SCH (17:28)
[2017-01-25] MEDS: traZODone 50 MG TABLET PO SCH (22:08)
[2017-01-26] MEDS: *HR* Morphine 2 MG/ML SYRINGE IVP PRN ×3 (05:35→18:25)
[2017-01-26] MEDS: Pantoprazole 40 MG VIAL IVP SCH ×2 (05:37→18:24)
[2017-01-26] MEDS: *HR* Enoxaparin 40 MG/0.4 ML SYRINGE SQ SCH (05:37)
[2017-01-26 06:35] LABS: Hemoglobin 11.6 g/dL (11.5-15.4); Mean Corpuscular HGB Conc 32.2 g/dL (31.6-35.5); Mean Corpuscular Hemoglobin 28.4 pg (28.0-33.3); Mean Corpuscular Volume 88.2 fL (83.0-100.0); Platelet Count 179 K/mcL (140-400); Red Blood Count 4.08 M/mcL (3.82-4.97); Red Cell Distribution Width 14.7 % (11.5-14.5)
[2017-01-26 06:55] LABS: Alanine Aminotransferase 23 Units/L (0-55); Albumin/Globulin Ratio 0.9 (1.1-2.2); Alkaline Phosphatase 100 Units/L (38-126); Aspartate Amino Transferase 16 Units/L (5-34); BUN/Creatinine Ratio 17 (6-26); Bilirubin,Total 0.5 mg/dL (0.2-1.2); Blood Urea Nitrogen 14 mg/dL (7-20); Carbon Dioxide 27 mEq/L (19-29); Chloride 107 mEq/L (98-109); Globulin 3.4 g/dL (2.4-3.5); Glucose 78 mg/dL (70-99); Osmolality,Calculated 289 (280-300); Potassium 4.1 mEq/L (3.5-4.5); Sodium 140 mEq/L (136-145); eGFR For African Americans > 60 (> 60); eGFR For Non-African Americans > 60 (> 60)
[2017-01-26 06:58] LABS: Albumin 3.2 g/dL (3.5-5.0); Total Protein 6.6 g/dL (6.0-8.3)
[2017-01-26] MEDS ORDERED: D5% in Water 0 ML ONE (08:53)
[2017-01-26] MEDS: Sucralfate 1 GM TABLET PO SCH ×4 (08:57→20:36)
[2017-01-26] MEDS: Magnesium Oxide 400 MG TABLET PO SCH (08:57)
[2017-01-26] MEDS: Loratadine 10 MG TABLET PO SCH (08:57)
[2017-01-26] MEDS: Nicotine 14 MG PATCH.TD24 TD SCH (08:58)
[2017-01-26] MEDS: cefTRIAXone 1,000 MG in Water for inj. (sterile) 10 ML IVP SCH (09:12)
--- NOTE | 2017-01-26 17:56 | Internal Med Progress Note ---
Date of Encounter: 01/26/17 Time of Encounter: 17:54 - Assessment and plan (1) Abdominal pain Current Visit: No Status: Acute Assessment and plan: Continued upper abdominal pain - guarding on exam. Sometimes reports it is worse on the right. Hx of erosive esophagitis and gastritis with previous admissions for similar symptoms. Hx cholecystectomy. Liver function normal. Was out of PPI for several months, restarted PPI about 2 months ago. Previously discharged on carafate, but wasn't taking at home I suspect this pain is an exacerbation of her gastritis/erosive esophagitis and possible chronic PUD Hgb dropped this AM (5.2, 5.0 down from 16.3), but no hematochezia, melena, hematemesis, or gross hematuria. Without a source of bleeding, drop is likely dilutional as several other parameters decreased as well CT abd/pelvis: No acute intra-abdominal or intrapelvic abnormality on noncontrast exam. Bilateral nonobstructing nephrolithiasis, similar in appearance. Plan: Switch to IV protonix, add carafate Check hepatitis profile Add colace Morphine not helping pain, GI cocktail unsuccessful - one time trial dose of dilaudid 01/26/2017. Abdominal pain is much better. Hepatitis profile negative Patient claims that she had a good bowel movement. Compared to yesterday patient feels much better We will continue present therapy for now. Qualifiers: Abdominal location: upper abdomen, unspecified Qualified Code(s): R10.10 - Upper abdominal pain, unspecified (2) Tobacco abuse Current Visit: Yes Status: Chronic Assessment and plan: Patient is active smoker and presently on a nicotine replacement (3) HTN (hypertension) Current Visit: Yes Status: Chronic Assessment and plan: Continue meds Qualifiers: Hypertension type: essential hypertension Qualified Code(s): I10 - Essential (primary) hypertension (4) Erosive esophagitis Current Visit: Yes Status: Chronic Assessment and plan: Pain is likely an exacerbation of poorly treated esophagitis 01/18/2017. Patient might need an outpatient EGD. (5) Severe sepsis Current Visit: Yes Status: Acute Assessment and plan: Had lower urinary tract symptoms on admission, symptoms are much improved now. Urine culture was grossly mixed. Pt has improved significantly after one day, vitals improved. WBC now 5.0 (down from 16.3) Plan: Blood cultures pending Continue antibiotics for now 01/26/2017. WBC count normal Renal function normal except and patient is afebrile. Lactic acid trending down. Sepsis is resolved. (6) COPD (chronic obstructive pulmonary disease) Current Visit: Yes Status: Chronic Assessment and plan: Mild wheezes on exam - continue medications Qualifiers: COPD type: emphysema Emphysema type: panlobular Qualified Code(s): J43.1 - Panlobular emphysema - Subjective Interval history: Patient seen and examined. Chart reviewed. Patient is comfortably lying in the bed. Patient denies any abdominal pain. - Constitutional Vitals: Temp Pulse Resp BP Pulse Ox 98.5 F 87 20 126/88 89 01/26/17 16:29 01/26/17 16:29 01/26/17 16:29 01/26/17 16:29 01/26/17 16:29 General appearance: Present: A&O X 3, no acute distress - Head Head exam: Present: atraumatic, normocephalic - Eye Eye exam: Present: PERRL, conjuntiva pink, sclera anicteric Pupils: Present: PERRL - Neck Neck exam general surgery: Present: supple, trachea midline. Absent: lymphadenopathy - Respiratory Respiratory exam: Present: CTAB. Absent: accessory muscle use, rales, rhonchi, wheezes - Cardiovascular Cardiovascular exam: Present: RRR, +S1, +S2. Absent: diastolic murmur, gallop, rubs, systolic murmur - GI/Abdominal GI/Abdominal exam: Present: normal bowel sounds, soft, no peritoneal signs. Absent: distended, tenderness - Extremities Exam Extremities exam: Present: warm, radial pulses palpable and symmetrical. Absent : calf tenderness, cyanotic, pedal edema - Neurological Exam Neurological exam: Present: CN II-XII intact, oriented X3, no focal deficits. Absent: pronater drift, facial droop, speech deficit - Skin Skin exam: Present: dry, intact Internal Medicine: Result - Labs CBC & Chem 7: 01/26/17 05:45 01/26/17 05:45 Labs: Short CBC 01/26/17 Range/Units 05:45 WBC 5.9 (4.3-11.1) K/mcL Hgb 11.6 (11.5-15.4) g/dL Hct 36.0 (35.3-44.9) % Plt Count 179 (140-400) K/mcL BMP 01/26/17 05:45 Sodium 140 Potassium 4.1 Chloride 107 Carbon Dioxide 27 BUN 14 Creatinine 0.83 Glucose 78 Calcium 9.0 Liver Function 01/26/17 Range/Units 05:45 Total Bilirubin 0.5 (0.2-1.2) mg/dL AST 16 (5-34) Units/L ALT 23 (0-55) Units/L Alkaline Phosphatase 100 (38-126) Units/L Albumin 3.2 L D (3.5-5.0) g/dL - VTE Documentation of Mechanical Device: Intermittent pneumatic compression device Consult Discharge Plan - Plan Referrals: Chad Negro MD [Primary Care Provider] -
[2017-01-26] MEDS: traZODone 50 MG TABLET PO SCH (20:36)
[2017-01-26] MEDS: Ondansetron 4 MG/2 ML VIAL IVP PRN (20:36)
[2017-01-27] MEDS: *HR* Morphine 2 MG/ML SYRINGE IVP PRN ×4 (03:10→21:16)
[2017-01-27 03:35] LABS: Hematocrit 35.8 % (35.3-44.9); Hemoglobin 11.4 g/dL (11.5-15.4); Mean Corpuscular HGB Conc 31.8 g/dL (31.6-35.5); Mean Corpuscular Hemoglobin 28.4 pg (28.0-33.3); Mean Corpuscular Volume 89.1 fL (83.0-100.0); Mean Platelet Volume 9.7 fL (9.4-12.4); Platelet Count 173 K/mcL (140-400); Red Blood Count 4.02 M/mcL (3.82-4.97); Red Cell Distribution Width 14.6 % (11.5-14.5)
[2017-01-27 03:45] LABS: Alanine Aminotransferase 19 Units/L (0-55); Albumin/Globulin Ratio 0.9 (1.1-2.2); Alkaline Phosphatase 99 Units/L (38-126); Aspartate Amino Transferase 13 Units/L (5-34); BUN/Creatinine Ratio 16 (6-26); Bilirubin,Total 0.3 mg/dL (0.2-1.2); Blood Urea Nitrogen 15 mg/dL (7-20); Calcium 8.7 mg/dL (8.6-10.8); Carbon Dioxide 29 mEq/L (19-29); Chloride 107 mEq/L (98-109); Globulin 3.4 g/dL (2.4-3.5); Glucose 102 mg/dL (70-99); Osmolality,Calculated 289 (280-300); Sodium 139 mEq/L (136-145); Total Protein 6.4 g/dL (6.0-8.3); eGFR For African Americans > 60 (> 60); eGFR For Non-African Americans > 60 (> 60)
[2017-01-27] MEDS: Pantoprazole 40 MG VIAL IVP SCH ×2 (05:58→17:14)
[2017-01-27] MEDS: *HR* Enoxaparin 40 MG/0.4 ML SYRINGE SQ SCH (05:59)
[2017-01-27] MEDS: Magnesium Oxide 400 MG TABLET PO SCH (08:44)
[2017-01-27] MEDS: Loratadine 10 MG TABLET PO SCH (08:45)
[2017-01-27] MEDS: cefTRIAXone 1,000 MG in Water for inj. (sterile) 10 ML IVP SCH (08:45)
[2017-01-27] MEDS: Nicotine 14 MG PATCH.TD24 TD SCH (08:46)
[2017-01-27] MEDS: Sucralfate 1 GM TABLET PO SCH ×4 (08:46→21:12)
--- NOTE | 2017-01-27 17:33 | Internal Med Progress Note ---
Date of Encounter: 01/27/17 Time of Encounter: 17:31 - Assessment and plan (1) Abdominal pain Current Visit: No Status: Acute Assessment and plan: Continued upper abdominal pain - guarding on exam. Sometimes reports it is worse on the right. Hx of erosive esophagitis and gastritis with previous admissions for similar symptoms. Hx cholecystectomy. Liver function normal. Was out of PPI for several months, restarted PPI about 2 months ago. Previously discharged on carafate, but wasn't taking at home I suspect this pain is an exacerbation of her gastritis/erosive esophagitis and possible chronic PUD Hgb dropped this AM (5.2, 5.0 down from 16.3), but no hematochezia, melena, hematemesis, or gross hematuria. Without a source of bleeding, drop is likely dilutional as several other parameters decreased as well CT abd/pelvis: No acute intra-abdominal or intrapelvic abnormality on noncontrast exam. Bilateral nonobstructing nephrolithiasis, similar in appearance. Plan: Switch to IV protonix, add carafate Check hepatitis profile Add colace Morphine not helping pain, GI cocktail unsuccessful - one time trial dose of dilaudid 01/26/2017. Abdominal pain is much better. Hepatitis profile negative Patient claims that she had a good bowel movement. Compared to yesterday patient feels much better We will continue present therapy for now. 01/27/2017 Her pain is much better as compared to yesterday. Patient claims that she is feeling better. Likely home tomorrow. Qualifiers: Abdominal location: upper abdomen, unspecified Qualified Code(s): R10.10 - Upper abdominal pain, unspecified (2) Tobacco abuse Current Visit: Yes Status: Chronic Assessment and plan: Patient is active smoker and presently on a nicotine replacement (3) HTN (hypertension) Current Visit: Yes Status: Chronic Assessment and plan: Continue meds Qualifiers: Hypertension type: essential hypertension Qualified Code(s): I10 - Essential (primary) hypertension (4) Erosive esophagitis Current Visit: Yes Status: Chronic Assessment and plan: Pain is likely an exacerbation of poorly treated esophagitis 01/18/2017. Patient might need an outpatient EGD. (5) Severe sepsis Current Visit: Yes Status: Acute Assessment and plan: Had lower urinary tract symptoms on admission, symptoms are much improved now. Urine culture was grossly mixed. Pt has improved significantly after one day, vitals improved. WBC now 5.0 (down from 16.3) Plan: Blood cultures pending Continue antibiotics for now 01/26/2017. WBC count normal Renal function normal except and patient is afebrile. Lactic acid trending down. Sepsis is resolved. (6) COPD (chronic obstructive pulmonary disease) Current Visit: Yes Status: Chronic Assessment and plan: Mild wheezes on exam - continue medications Qualifiers: COPD type: emphysema Emphysema type: panlobular Qualified Code(s): J43.1 - Panlobular emphysema - Subjective Interval history: Patient seen and examined. Chart reviewed. Patient is comfortably lying in the bed. Patient denies any abdominal pain. 01/27/2017 Patient seen and examined. Chart reviewed. Patient is comfortably lying in the bed. Patient claims that her pain is much better as compared to yesterday. patient denies any shortness of breath, nausea, vomiting, chest pain - Constitutional Vitals: Temp Pulse Resp BP Pulse Ox 98.5 F 89 16 139/95 98 01/26/17 16:29 01/27/17 03:40 01/27/17 03:40 01/27/17 03:40 01/27/17 08:50 General appearance: Present: A&O X 3, no acute distress - Head Head exam: Present: atraumatic, normocephalic - Eye Eye exam: Present: PERRL, conjuntiva pink, sclera anicteric Pupils: Present: PERRL - Neck Neck exam general surgery: Present: supple, trachea midline. Absent: lymphadenopathy - Respiratory Respiratory exam: Present: CTAB. Absent: accessory muscle use, rales, rhonchi, wheezes - Cardiovascular Cardiovascular exam: Present: RRR, +S1, +S2. Absent: diastolic murmur, gallop, rubs, systolic murmur - GI/Abdominal GI/Abdominal exam: Present: normal bowel sounds, soft, no peritoneal signs. Absent: distended, tenderness - Extremities Exam Extremities exam: Present: warm, radial pulses palpable and symmetrical. Absent : calf tenderness, cyanotic, pedal edema - Neurological Exam Neurological exam: Present: CN II-XII intact, oriented X3, no focal deficits. Absent: pronater drift, facial droop, speech deficit - Skin Skin exam: Present: dry, intact Internal Medicine: Result - Labs CBC & Chem 7: 01/27/17 03:15 01/27/17 03:15 Labs: Short CBC 01/27/17 Range/Units 03:15 WBC 4.5 (4.3-11.1) K/mcL Hgb 11.4 L (11.5-15.4) g/dL Hct 35.8 (35.3-44.9) % Plt Count 173 (140-400) K/mcL BMP 01/27/17 03:15 Sodium 139 Potassium 4.0 Chloride 107 Carbon Dioxide 29 BUN 15 Creatinine 0.94 Glucose 102 H Calcium 8.7 Liver Function 01/27/17 Range/Units 03:15 Total Bilirubin 0.3 (0.2-1.2) mg/dL AST 13 (5-34) Units/L ALT 19 (0-55) Units/L Alkaline Phosphatase 99 (38-126) Units/L Albumin 3.0 L (3.5-5.0) g/dL - VTE Documentation of Mechanical Device: Intermittent pneumatic compression device Consult Discharge Plan - Plan Referrals: Chad Negro MD [Primary Care Provider] -
[2017-01-27] MEDS: traZODone 50 MG TABLET PO SCH (21:12)
[2017-01-28] MEDS: *HR* Morphine 2 MG/ML SYRINGE IVP PRN ×2 (03:15→11:03)
[2017-01-28] MEDS: Pantoprazole 40 MG VIAL IVP SCH (05:35)
[2017-01-28] MEDS: *HR* Enoxaparin 40 MG/0.4 ML SYRINGE SQ SCH (05:37)
[2017-01-28 06:54] LABS: Hemoglobin 12.1 g/dL (11.5-15.4); Mean Corpuscular HGB Conc 31.8 g/dL (31.6-35.5); Mean Corpuscular Hemoglobin 27.8 pg (28.0-33.3); Mean Corpuscular Volume 87.2 fL (83.0-100.0); Mean Platelet Volume 9.6 fL (9.4-12.4); Platelet Count 189 K/mcL (140-400); Red Blood Count 4.36 M/mcL (3.82-4.97); Red Cell Distribution Width 14.5 % (11.5-14.5)
[2017-01-28 07:11] LABS: Alanine Aminotransferase 17 Units/L (0-55); Albumin 3.3 g/dL (3.5-5.0); Albumin/Globulin Ratio 0.9 (1.1-2.2); Alkaline Phosphatase 105 Units/L (38-126); Aspartate Amino Transferase 13 Units/L (5-34); BUN/Creatinine Ratio 21 (6-26); Bilirubin,Total 0.3 mg/dL (0.2-1.2); Blood Urea Nitrogen 18 mg/dL (7-20); Calcium 9.3 mg/dL (8.6-10.8); Carbon Dioxide 24 mEq/L (19-29); Chloride 106 mEq/L (98-109); Globulin 3.8 g/dL (2.4-3.5); Glucose 122 mg/dL (70-99); Osmolality,Calculated 287 (280-300); Potassium 4.3 mEq/L (3.5-4.5); Sodium 137 mEq/L (136-145); Total Protein 7.1 g/dL (6.0-8.3); eGFR For African Americans > 60 (> 60); eGFR For Non-African Americans > 60 (> 60)
[2017-01-28 07:39] VITALS: BP 119/81
--- NOTE | 2017-01-28 09:59 | Discharge Summary ---
<Amanuel Escobar - Last Filed: 01/28/17 09:56> Date of Encounter: 01/28/17 Time of Encounter: 09:56 - Discharge Diagnosis (1) Severe sepsis Priority: Primary Status: Acute (2) Abdominal pain Priority: Secondary Status: Acute Qualifiers: Abdominal location: upper abdomen, unspecified Qualified Code(s): R10.10 - Upper abdominal pain, unspecified (3) Erosive esophagitis Priority: Secondary Status: Chronic (4) Gastritis Priority: Secondary Status: Acute Qualifiers: Gastritis type: superficial Chronicity: acute Gastritis bleeding: without bleeding Qualified Code(s): K29.00 - Acute gastritis without bleeding (5) Acute kidney injury Priority: Secondary Status: Acute (6) COPD (chronic obstructive pulmonary disease) Priority: Secondary Status: Chronic Qualifiers: COPD type: emphysema Emphysema type: panlobular Qualified Code(s): J43.1 - Panlobular emphysema (7) Tobacco abuse Priority: Secondary Status: Chronic (8) HTN (hypertension) Priority: Secondary Status: Chronic Qualifiers: Hypertension type: essential hypertension Qualified Code(s): I10 - Essential (primary) hypertension (9) Bipolar disorder Priority: Secondary Status: Chronic Qualifiers: Active/Remission status: in partial remission Most recent bipolar episode type: depressed Qualified Code(s): F31.75 - Bipolar disorder, in partial remission, most recent episode depressed (10) Schizophrenia Priority: Secondary Status: Chronic Qualifiers: Schizophrenia type: paranoid schizophrenia Qualified Code(s): F20.0 - Paranoid schizophrenia - Discharge Medications Prescriptions: Docusate [Colace] 100 mg PO BID #60 capsule Nicotine Patch [Nicoderm] 14 mg TD DAILY #30 patch.td24 Sucralfate [Carafate] 1 gm PO QIDAC #120 tablet Home Medications: Propranolol [Inderal] 20 mg PO BID 01/07/15 [History] Cetirizine HCl [Zyrtec] 10 mg PO DAILY 02/19/15 [History] Levothyroxine [Synthroid] 75 mcg PO DAILY 02/19/15 [History] Albuterol Sulfate [Albuterol Inhaler] 2 puff IH Q4H PRN 05/17/16 [History] Beclomethasone Diprop 40mcg [QVAR 40 mcg] 1 puff IH DAILY 05/17/16 [History] Omeprazole [PriLOSEC] 20 mg PO BID 05/17/16 [History] Quetiapine Fumarate [Seroquel] 800 mg PO HS #60 tablet 08/13/16 [Rx] traZODone [TraZODone] 100 mg PO HS #60 tablet 08/13/16 [Rx] Docusate [Colace] 100 mg PO BID #60 capsule 01/28/17 [Rx] Nicotine Patch [Nicoderm] 14 mg TD DAILY #30 patch.td24 01/28/17 [Rx] Sucralfate [Carafate] 1 gm PO QIDAC #120 tablet 01/28/17 [Rx] Allergies/Adverse Reactions: 3 Allergy/AdvReac Type Severity Reaction Status Date / Time acetaminophen [From Tylenol] Allergy Mild Hives Verified 08/07/16 15:09 Date of admission: 01/25/17 15:49 Primary care physician: Chad Negro MD Discharging clinician: Amanuel Escobar Anticipated date of discharge: 01/28/17 - Patient Status Disposition: Home, Self-Care Condition: Fair Functional capacity at discharge: independent ambulation Overall status at discharge: patient is back to baseline - Discharge Instructions Instructions: Pancreatitis (DC), Urinary Tract Infection in Women (DC), Sepsis (DC) Follow Up With: Chad Negro MD [Primary Care Provider] - 02/05/17 8:30 am Radha Baum MD [Partnered Physician] - Forms: ED Satisfaction Letter, Work/School Release Additional Instructions: Drink adequate water to avoid dehydration again Take medications as prescribed Take carafate 4 times daily Take omperazole twice daily Follow-up with your PCP Follow-up with gastroenterology Return to the hospital if your symptoms return or worsen - Diet and Activity Activity: increase activity as tolerated Diet: advance to your usual diet Interval History: Pt is doing well with no complaints. She reports her abdominal pain is much improved and more controlled now. Denies fevers, chills, chest pain, dyspnea, N /V/D, dysuria, or leg pain/edema. Hospital course: Ms. Banks is a 61 year old female with PMH of HTN, COPD, erosive esophagitis, gastritis, schizophrenia, bipolar disorder, and bilateral non-obstructing renal stones presented with lower urinary tract symptoms, upper abdominal pain, and met sever sepsis criteria. Antibiotics were initiated for a 4 day course of Rocephin for UTI. Blood cultures from 01/24/17 have shown no growth. She was very dehydrated and improved significantly with IV fluids. Her upper abdominal pain is chronic but has worsening over the past several months. She had been out of her meds for several months, and was no longer taking her carafate. Recent CT scans show no acute abnormalities. Her pain is most likely related to her erosive esophagitis and gastritis with much improvement after protonix and carafate. No hematemesis, hematochezia, or melena were present. She is to follow -up as an out-patient with GI and PCP for further management and consideration of EGD. On day of discharge she is much improved and hemodynamically stable. - Time Spent with Patient Total time spent providing and/or coordinating discharge services: Greater than 30 minutes - Constitutional Vitals: Temp Pulse Resp BP Pulse Ox 98.0 F 88 14 119/81 92 01/28/17 07:33 01/28/17 07:33 01/28/17 07:33 01/28/17 07:33 01/28/17 07:33 General appearance: Present: A&O X 3, no acute distress - Head Head exam: Present: atraumatic, normocephalic - Eye Eye exam: Present: conjuntiva pink, sclera anicteric Pupils: Present: PERRL - ENT ENT exam: Present: mucous membranes moist - Neck Neck exam general surgery: Present: supple, trachea midline. Absent: lymphadenopathy - Respiratory Respiratory exam: Present: CTAB. Absent: accessory muscle use, rales, rhonchi, wheezes - Cardiovascular Cardiovascular exam: Present: RRR, +S1, +S2. Absent: diastolic murmur, systolic murmur - GI/Abdominal GI/Abdominal exam: Present: normal bowel sounds, soft, no peritoneal signs. Absent: distended, tenderness - Extremities Exam Extremities exam: Present: warm, radial pulses palpable and symmetrical. Absent : calf tenderness, cyanotic, pedal edema - Neurological Exam Neurological exam: Present: CN II-XII intact, oriented X3, no focal deficits. Absent: facial droop, speech deficit - Skin Skin exam: Present: dry, intact - VTE Documentation of Mechanical Device: Intermittent pneumatic compression device <Alberto Marquez P - Last Filed: 01/28/17 17:43> Date of Encounter: 01/28/17 - Discharge Diagnosis (1) Abdominal pain Status: Acute Qualifiers: Abdominal location: upper abdomen, unspecified Qualified Code(s): R10.10 - Upper abdominal pain, unspecified (2) Tobacco abuse Status: Chronic (3) HTN (hypertension) Status: Chronic Qualifiers: Hypertension type: essential hypertension Qualified Code(s): I10 - Essential (primary) hypertension (4) Erosive esophagitis Status: Chronic (5) Severe sepsis Status: Acute (6) COPD (chronic obstructive pulmonary disease) Status: Chronic Qualifiers: COPD type: emphysema Emphysema type: panlobular Qualified Code(s): J43.1 - Panlobular emphysema Date of admission: 01/25/17 15:49 Primary care physician: Chad Negro MD Hospital course: Ms. Banks is a 61 year old female - Time Spent with Patient Total time spent providing and/or coordinating discharge services: - Constitutional Vitals: Temp Pulse Resp BP Pulse Ox 98.0 F 88 14 119/81 92 01/28/17 07:33 01/28/17 07:33 01/28/17 07:33 01/28/17 07:33 01/28/17 07:33 - Attending Attestation I examined this patient and my medical decision-making was reviewed with the Resident Physician. I agree with the documented findings, disposition and treatment plan as described except to the extent set forth below.
[2017-01-28] MEDS: Nicotine 14 MG PATCH.TD24 TD SCH (10:48)
[2017-01-28] MEDS: Magnesium Oxide 400 MG TABLET PO SCH (10:48)
[2017-01-28] MEDS: Sucralfate 1 GM TABLET PO SCH (10:48)
[2017-01-28] MEDS: Loratadine 10 MG TABLET PO SCH (10:49)
[2017-01-28] MEDS: cefTRIAXone 1,000 MG in Water for inj. (sterile) 10 ML IVP SCH (10:49)
[2017-01-28] MEDS ORDERED: FLUARIX QUAD 2017-18 36MOS UP/PF 0.5 ML SYRINGE IM ONE (14:35)
== END 2017-01-28 14:25 | disposition home or self-care (01) | DRG 720 ==
LOC: EMEROO 00:05 → 2NENU 00:05
PROVIDERS: ADMIT Internal Medicine; ATTEND Internal Medicine

== ENCOUNTER 2017-07-25 07:34 | Observation (INO) ==
[2017-07-25] MEDS ORDERED: 0.9 % Sodium Chloride 1,000 ML IVC ONE (07:37)
[2017-07-25] MEDS ORDERED: Ondansetron 4 MG/2 ML VIAL IVP ONE (07:37)
[2017-07-25] MEDS ORDERED: *HR* FentaNYL (PF) 100 MCG/2 ML VIAL IVP ONE ×3 (07:38→11:36)
--- NOTE | 2017-07-25 07:40 | Emergency Department Note ---
Disposition Clinical Impression: Intractable epigastric abdominal pain Intractable nausea and vomiting Qualifiers: Vomiting type: unspecified Qualified Code(s): R11.2 - Nausea with vomiting, unspecified Disposition: Admitted As Inpatient Condition: Fair Referrals: NONE,PCP [Primary Care Provider] - Forms: ED Satisfaction Letter Time of Disposition: 11:29 Nausea/Vomiting/Diarrhea HPI - General Chief complaint: ED Nausea/Vomiting/Diarrhea Stated complaint: NV x 3 days/possible stomach flu Time Seen by Provider: 07/25/17 07:37 Source: patient, EMS Mode of arrival: EMS Limitations: no limitations Nursing Notes Reviewed: Yes Vital Signs Reviewed: Yes - History of Present Illness HPI Narrative: Alert and oriented nontoxic-appearing 62-year-old female presents for evaluation of diffuse abdominal pain, nausea, vomiting, and diarrhea that began 3 days ago. She states multiple episodes of emesis per day since symptoms onset. She originally complains of epigastric pain and describes this as a burning sensation. She rates it a 10 out of 10 on a 10 point scale. On exam, her abdomen is diffusely tender however. She denies any overt chest pain, cough , or shortness of breath. She denies any urinary symptoms. She denies any known sick contacts or recent travel. She denies any known aggravating or alleviating factors. Pt Subjective Complaint: nausea, vomiting, diarrhea, abdominal pain Onset (ago): day(s) (3) Associated Abdominal Pain: Yes If pain, Location of pain: diffuse Severity: severe Severity scale (1-10): 10 Quality: other (burning) Consistency: constant Improves with: nothing Worsens with: nonthing Associated symptoms: Denies: chest pain, cough, diaphoresis, fever/chills, dysuria - Related Data Home Medications Medication Instructions Recorded Confirmed Propranolol [Inderal] 20 mg PO BID 01/07/15 01/24/17 Cetirizine HCl [Zyrtec] 10 mg PO DAILY 02/19/15 01/24/17 Levothyroxine [Synthroid] 75 mcg PO DAILY 02/19/15 01/24/17 Albuterol Sulfate [Albuterol 2 puff IH Q4H PRN 05/17/16 01/24/17 Inhaler] Beclomethasone Diprop 40mcg [QVAR 1 puff IH DAILY 05/17/16 01/24/17 40 mcg] Omeprazole [PriLOSEC] 20 mg PO BID 05/17/16 01/24/17 Previous Rx's Medication Instructions Recorded Quetiapine Fumarate [Seroquel] 800 mg PO HS #60 tablet 08/13/16 traZODone [TraZODone] 100 mg PO HS #60 tablet 08/13/16 Docusate [Colace] 100 mg PO BID #60 capsule 01/28/17 Nicotine Patch [Nicoderm] 14 mg TD DAILY #30 patch.td24 01/28/17 Sucralfate [Carafate] 1 gm PO QIDAC #120 tablet 01/28/17 Allergies Allergy/AdvReac Type Severity Reaction Status Date / Time acetaminophen [From Tylenol] Allergy Mild Hives Verified 07/25/17 07:36 All systems ED: reviewed and negative except as stated. Constitutional: Denies: fever, chills, weakness, weight change Eyes: Denies: eye pain, eye discharge, vision change ENT ED: Denies: ear pain, throat pain, dental pain, hearing loss, epistaxis, congestion, dysphagia Cardiovascular: Denies: chest pain, palpitations, dyspnea on exertion, edema, syncope Respiratory: Denies: cough, dyspnea, wheezes, hemoptysis, stridor Gastrointestinal: Reports: as per HPI, nausea, vomiting, diarrhea. Denies: constipation, hematemesis, melena, hematochezia Genitourinary: Denies: dysuria, frequency, hematuria, discharge Musculoskeletal: Denies: back pain, neck pain, arthralgia, myalgia Integumentary: Denies: rash, abrasion, lesions Neurological: Denies: headache, weakness, numbness, paresthesias, confusion, abnormal gait, vertigo Psychiatric: Denies: anxiety, depression, suicidal thoughts, homicidal thoughts , auditory hallucinations, visual hallucinations Endocrine: Denies: fatigue Hematological/Lymphatic: Denies: easy bleeding, easy bruising Allergic/Immunologic: Denies: facial swelling, urticaria Past Medical History - Past Medical History Attestation: Yes The following information was validated with the patient. Source: patient, nursing notes reviewed Medical history: Reports: COPD, GERD, hypertension, kidney stones (bilateral), migraine, other Surgical history: Reports: cholecystectomy, orthopedic, other Psychiatric history: Reports: bipolar, depression - Social History Smoking Status: Current every day smoker Smokeless Tobacco Status: No Alcohol use: Reports: none Drug use: Reports: marijuana Physical Exam - General Limitations: no limitations General appearance: alert, in no apparent distress - Head Head exam: atraumatic, normocephalic, normal inspection - Eye Eye exam: Present: normal appearance, PERRL, EOMI. Absent: nystagmus - ENT ENT exam: mucous membranes dry - Neck Neck exam: Present: normal inspection, full ROM, trachea midline. Absent: lymphadenopathy - Chest Chest inspection: Present: normal inspection, symmetric chest wall rise - Respiratory Respiratory exam: Present: normal lung sounds bilaterally. Absent: respiratory distress, wheezes, accessory muscle use, prolonged expiratory phase - Cardiovascular Cardiovascular exam: Present: regular rate, normal rhythm, normal heart sounds - Abdominal Exam Abdominal exam: Present: soft, tenderness, guarding, normal bowel sounds. Absent: distention, rebound, rigidity Abdominal tenderness: Present: diffuse, severe - Extremities Exam Extremities exam: Present: normal inspection, full ROM. Absent: tenderness, pedal edema - Neurological Exam Neurological exam: Present: alert, oriented X3 - Psychiatric Psychiatric exam: Present: normal affect, normal mood - Skin Skin exam: Present: warm, dry, intact, normal color. Absent: rash Course Course Narrative: 1128: The patient's symptoms have not been controlled with the use of IV fentanyl, Zofran, Phenergan, and Compazine. I spoke with Dr. Jackson of the hospitalist services agreed to accept the patient for observation and treatment of her intractable abdominal pain, and nausea and vomiting. I discussed this plan with Dr. Yeung. Dr. Yeung has had a [id number] evaluation with patient and agrees with this plan. Vital Signs Temperature 97.7 F 07/25/17 07:37 Pulse Rate 118 07/25/17 07:37 Respiratory Rate 20 07/25/17 07:37 Blood Pressure 210/113 07/25/17 07:37 O2 Sat by Pulse Oximetry 95 07/25/17 07:37 Temperature 97.7 F 07/25/17 07:37 Pulse Rate 110 07/25/17 11:09 Respiratory Rate 20 07/25/17 11:09 Blood Pressure 197/142 07/25/17 11:09 O2 Sat by Pulse Oximetry 96 07/25/17 11:09 Oxygen Delivery Oxygen Delivery Nasal Cannula Nausea/Vomiting/Diarrhea - Medical Records Medical records reviewed: Yes I reviewed the patient's medical records. - Lab Data Lab results reviewed: Yes I reviewed the patient's lab results. Lab results narrative: Laboratory Last Values WBC 7.4 K/mcL (4.3-11.1) 07/25/17 08: RBC 5.72 M/mcL (3.82-4.97) H 07/25/17 08:26 Hgb 16.2 g/dL (11.5-15.4) H 07/25/17 08:26 Hct 48.6 % (35.3-44.9) H 07/25/17 08: MCV 85.0 fL (83.0-100.0) 07/25/17 08: MCH 28.3 pg (28.0-33.3) 07/25/17 08: MCHC 33.3 g/dL (31.6-35.5) 07/25/17 08: RDW 15.1 % (11.5-14.5) H 07/25/17 08: Plt Count 269 K/mcL (140-400) 07/25/17 08: MPV 9.2 fL (9.4-12.4) L 07/25/17 08: Immature Gran % 0.3 % (0-4) 07/25/17 08: Seg Neutrophils % 80.7 % 07/25/17 08: Lymphocytes % 15.2 % 07/25/17 08: Monocytes % 3.7 % 07/25/17 08: Eosinophils % 0.0 % 07/25/17 08: Basophils % 0.1 % 07/25/17 08: Neutrophils # 6.0 K/mcL (1.6-8.9) 07/25/17 08: Lymphocytes # 1.1 K/mcL (0.6-4.6) 07/25/17 08: Monocytes # 0.3 K/mcL (0.0-1.3) 07/25/17 08: Eosinophils # 0.0 K/mcL (0.0-0.6) 07/25/17 08: Basophils # 0.0 K/mcL (0.0-0.2) 07/25/17 08:26 PT 10.7 Seconds (9.4-12.1) 07/25/17 08:26 INR 1.0 07/25/17 08:26 APTT 27.4 Seconds (26.0-36.0) 07/25/17 08:26 Sodium 139 mEq/L (136-145) 07/25/17 08:26 Potassium 3.4 mEq/L (3.5-5.1) L 07/25/17 08:26 Chloride 93 mEq/L (98-107) L 07/25/17 08:26 Carbon Dioxide 33 mEq/L (23-29) H 07/25/17 08:26 BUN 20 mg/dL (8-23) 07/25/17 08:26 Creatinine 0.81 mg/dL (0.60-1.20) 07/25/17 08:26 Est GFR ( Amer) > 60 (> 60) 07/25/17 08:26 Est GFR (Non-Af Amer) > 60 (> 60) 07/25/17 08:26 BUN/Creatinine Ratio 25 (6-26) 07/25/17 08:26 Glucose 153 mg/dL (70-105) H 07/25/17 08:26 Calculated Osmolality 294 (280-300) 07/25/17 08:26 Lactic Acid 1.3 mmol/L (0.5-2.2) 07/25/17 08:26 Calcium 10.7 mg/dL (8.6-10.3) H 07/25/17 08:26 Total Bilirubin 0.6 mg/dL (0.3-1.0) 07/25/17 08:26 Direct Bilirubin 0.2 mg/dL (0.0-0.2) 07/25/17 08:26 Indirect Bilirubin 0.4 mg/dL (0.0-1.2) 07/25/17 08:26 AST 13 Units/L (13-39) 07/25/17 08:26 ALT 17 Units/L (7-52) 07/25/17 08:26 Alkaline Phosphatase 110 Units/L (34-104) H 07/25/17 08:26 Troponin I < 0.03 ng/mL (< 0.04) 07/25/17 08:26 Serum Total Protein 8.5 g/dL (6.4-8.9) 07/25/17 08:26 Albumin 4.7 g/dL (3.5-5.7) 07/25/17 08:26 Globulin 3.8 g/dL (2.4-3.5) H 07/25/17 08:26 Albumin/Globulin Ratio 1.2 (1.1-2.2) 07/25/17 08:26 Amylase 33 Units/L (29-103) 07/25/17 08:26 Lipase 6 Units/L (11-82) L 07/25/17 08:26 Urine Color Yellow (Yellow) 07/25/17 07:53 Urine Clarity Slightly Hazy (Clear) 07/25/17 07:53 Urine pH 8.5 pH Units (5.0-8.0) H 07/25/17 07:53 Ur Specific Parker 1.016 (1.010-1.025) 07/25/17 07:53 Urine Protein 100 mg/dL (Neg-Trace) H 07/25/17 07:53 Urine Glucose (UA) Normal mg/dL (Normal) 07/25/17 07:53 Urine Ketones Negative mg/dL (Negative) 07/25/17 07:53 Urine Blood Negative (Negative) 07/25/17 07:53 Urine Nitrite Negative (Negative) 07/25/17 07:53 Urine Bilirubin Negative (Negative) 07/25/17 07:53 Urine Urobilinogen Normal mg/dL (Normal) 07/25/17 07:53 Ur Leukocyte Esterase Negative (Negative) 07/25/17 07:53 Urine Microscopic RBC 0-3 per hpf (0-3) 07/25/17 07:53 Urine Microscopic WBC 0-3 per hpf (0-3) 07/25/17 07:53 Ur Squamous Epith Cells Moderate per lpf (None-Few) H 07/25/17 07:53 Amorphous Sediment Few (Few) 07/25/17 07:53 Urine Bacteria Few per hpf (None-Few) 07/25/17 07:53 Ur Culture Indicated? NO (NO) 07/25/17 07:53 Result diagrams: 07/25/17 08:26 07/25/17 08:26 Lab Results 07/25/17 07/25/17 07/25/17 Range/Units 07:53 08:26 08:26 WBC 7.4 (4.3-11.1) K/mcL RBC 5.72 H (3.82-4.97) M/mcL Hgb 16.2 H (11.5-15.4) g/dL Hct 48.6 H (35.3-44.9) % MCV 85.0 (83.0-100.0) fL MCH 28.3 (28.0-33.3) pg MCHC 33.3 (31.6-35.5) g/dL RDW 15.1 H (11.5-14.5) % Plt Count 269 (140-400) K/mcL MPV 9.2 L (9.4-12.4) fL Immature Gran % 0.3 (0-4) % Seg Neutrophils % 80.7 % Lymphocytes % 15.2 % Monocytes % 3.7 % Eosinophils % 0.0 % Basophils % 0.1 % Neutrophils # 6.0 (1.6-8.9) K/mcL Lymphocytes # 1.1 (0.6-4.6) K/mcL Monocytes # 0.3 (0.0-1.3) K/mcL Eosinophils # 0.0 (0.0-0.6) K/mcL Basophils # 0.0 (0.0-0.2) K/mcL PT 10.7 (9.4-12.1) Seconds INR 1.0 APTT 27.4 (26.0-36.0) Seconds Sodium (136-145) mEq/L Potassium (3.5-5.1) mEq/L Chloride (98-107) mEq/L Carbon Dioxide (23-29) mEq/L BUN (8-23) mg/dL Creatinine (0.60-1.20) mg/dL Est GFR ( Amer) (> 60) Est GFR (Non-Af Amer) (> 60) BUN/Creatinine Ratio (6-26) Glucose (70-105) mg/dL Calculated Osmolality (280-300) Lactic Acid (0.5-2.2) mmol/L Calcium (8.6-10.3) mg/dL Total Bilirubin (0.3-1.0) mg/dL Direct Bilirubin (0.0-0.2) mg/dL Indirect Bilirubin (0.0-1.2) mg/dL AST (13-39) Units/L ALT (7-52) Units/L Alkaline Phosphatase (34-104) Units/L Troponin I (< 0.04) ng/mL Serum Total Protein (6.4-8.9) g/dL Albumin (3.5-5.7) g/dL Globulin (2.4-3.5) g/dL Albumin/Globulin Ratio (1.1-2.2) Amylase (29-103) Units/L Lipase (11-82) Units/L Urine Color Yellow (Yellow) Urine Clarity Slightly Hazy (Clear) Urine pH 8.5 H (5.0-8.0) pH Units Ur Specific Parker 1.016 (1.010-1.025) Urine Protein 100 H (Neg-Trace) mg/dL Urine Glucose (UA) Normal (Normal) mg/dL Urine Ketones Negative (Negative) mg/dL Urine Blood Negative (Negative) Urine Nitrite Negative (Negative) Urine Bilirubin Negative (Negative) Urine Urobilinogen Normal (Normal) mg/dL Ur Leukocyte Esterase Negative (Negative) Urine Microscopic RBC 0-3 (0-3) per hpf Urine Microscopic WBC 0-3 (0-3) per hpf Ur Squamous Epith Cells Moderate H (None-Few) per lpf Amorphous Sediment Few (Few) Urine Bacteria Few (None-Few) per hpf Ur Culture Indicated? NO (NO) 07/25/17 07/25/17 Range/Units 08:26 08:26 WBC (4.3-11.1) K/mcL RBC (3.82-4.97) M/mcL Hgb (11.5-15.4) g/dL Hct (35.3-44.9) % MCV (83.0-100.0) fL MCH (28.0-33.3) pg MCHC (31.6-35.5) g/dL RDW (11.5-14.5) % Plt Count (140-400) K/mcL MPV (9.4-12.4) fL Immature Gran % (0-4) % Seg Neutrophils % % Lymphocytes % % Monocytes % % Eosinophils % % Basophils % % Neutrophils # (1.6-8.9) K/mcL Lymphocytes # (0.6-4.6) K/mcL Monocytes # (0.0-1.3) K/mcL Eosinophils # (0.0-0.6) K/mcL Basophils # (0.0-0.2) K/mcL PT (9.4-12.1) Seconds INR APTT (26.0-36.0) Seconds Sodium 139 (136-145) mEq/L Potassium 3.4 L (3.5-5.1) mEq/L Chloride 93 L (98-107) mEq/L Carbon Dioxide 33 H (23-29) mEq/L BUN 20 (8-23) mg/dL Creatinine 0.81 (0.60-1.20) mg/dL Est GFR ( Amer) > 60 (> 60) Est GFR (Non-Af Amer) > 60 (> 60) BUN/Creatinine Ratio 25 (6-26) Glucose 153 H (70-105) mg/dL Calculated Osmolality 294 (280-300) Lactic Acid 1.3 (0.5-2.2) mmol/L Calcium 10.7 H (8.6-10.3) mg/dL Total Bilirubin 0.6 (0.3-1.0) mg/dL Direct Bilirubin 0.2 (0.0-0.2) mg/dL Indirect Bilirubin 0.4 (0.0-1.2) mg/dL AST 13 (13-39) Units/L ALT 17 (7-52) Units/L Alkaline Phosphatase 110 H (34-104) Units/L Troponin I < 0.03 (< 0.04) ng/mL Serum Total Protein 8.5 (6.4-8.9) g/dL Albumin 4.7 (3.5-5.7) g/dL Globulin 3.8 H (2.4-3.5) g/dL Albumin/Globulin Ratio 1.2 (1.1-2.2) Amylase 33 (29-103) Units/L Lipase 6 L (11-82) Units/L Urine Color (Yellow) Urine Clarity (Clear) Urine pH (5.0-8.0) pH Units Ur Specific Parker (1.010-1.025) Urine Protein (Neg-Trace) mg/dL Urine Glucose (UA) (Normal) mg/dL Urine Ketones (Negative) mg/dL Urine Blood (Negative) Urine Nitrite (Negative) Urine Bilirubin (Negative) Urine Urobilinogen (Normal) mg/dL Ur Leukocyte Esterase (Negative) Urine Microscopic RBC (0-3) per hpf Urine Microscopic WBC (0-3) per hpf Ur Squamous Epith Cells (None-Few) per lpf Amorphous Sediment (Few) Urine Bacteria (None-Few) per hpf Ur Culture Indicated? (NO) - Radiology Data Radiology results reviewed: Yes I reviewed the patient's radiology results. Abdomen/Pelvis CT 07/25/17 08:51 IMPRESSION: Bilateral nephroliths with no evidence for obstruction. Diverticulosis with no evidence for diverticulitis. Mild aneurysmal dilatation of the aorta measuring 3.25 cm. RECOMMENDATIONS: Managing Abdominal Aortic Aneurysms 2.6-2.9 cm: Every 5 years* 3.0-3.4 cm: Every 3 years. 3.5-3.9 cm: Every 1 year. 4.0-4.4 cm: Every 1 year. Recommend vascular consultation. 4.5-5.4 cm: Every 6 months. Recommend vascular consultation. Greater than or equal to 5.5 cm: Referral to vascular surgeon. *For abdominal aortas with maximum diameter of 2.6-2.9 cm meeting criteria for AAA (>50% of proximal normal segment). Reference: J Vasc Surg. 2008;50(4 Suppl):S2-49 D/ / 07/25/2017 11:05:37 Forest Martinez MD / Rufina Bales Interpreting Provider: Forest Martinez MD - EKG Data EKG attestation: Yes I reviewed and interpreted this EKG. EKG results narrative: EKG reviewed by Dr. Yeung as well. EKG shows a sinus tachycardia at a rate of 114 bpm. NJ interval 131, QRS duration 104, QT/QTc interval 342/410. No ectopy noted. No STEMI. No significant changes when compared to an EKG dated from 01/24/17. Attestation Statement - Attestation Attestation: I, Cayden Yeung DO have provided [id number] time during the care of this patient. Detailed review the presentation, symptoms, medical history were discussed and reviewed with the mid-level provider Mauricio Soliz PA-C/HARMAN. Medical intervention labs and imaging studies were reviewed in detail. See full documentation of physical exam and course of care in the mid-level provider's note. I agree with the determined course of care, medical intervention and disposition put forth by the mid-level provider. See below documentation for changes or alterations in documentation.
[2017-07-25 08:21] LABS: Bilirubin,Urine Negative (Negative); Blood,Urine Negative (Negative); Color,Urine Yellow (Yellow); Glucose,Urine (UA) Normal (Normal); Ketones,Urine Negative (Negative); Leukocyte Esterase,Urine Negative (Negative); Nitrite,Urine Negative (Negative); PH,Urine 8.5 pH Units (5.0-8.0); Protein,Urine 100 mg/dL (Neg-Trace); Specific Gravity,Urine 1.016 (1.010-1.025); Urobilinogen,Urine Normal (Normal)
[2017-07-25 08:28] LABS: Clarity,Urine Slightly Hazy (Clear)
[2017-07-25 08:37] LABS: Amorphous Sediment,Urine Few (Few); RBC,Urine 0-3 per hpf (0-3); Squamous Epithelial Cell,Urine Moderate per lpf (None-Few); WBC,Urine 0-3 per hpf (0-3)
[2017-07-25 08:38] LABS: Bacteria,Urine Few per hpf (None-Few)
[2017-07-25 08:41] LABS: Basophils % 0.1 %; Hematocrit 48.6 % (35.3-44.9); Hemoglobin 16.2 g/dL (11.5-15.4); Immature Granulocytes % 0.3 % (0-4); Lymphocytes # 1.1 K/mcL (0.6-4.6); Lymphocytes % 15.2 %; Mean Corpuscular HGB Conc 33.3 g/dL (31.6-35.5); Mean Corpuscular Hemoglobin 28.3 pg (28.0-33.3); Mean Platelet Volume 9.2 fL (9.4-12.4); Monocytes # 0.3 K/mcL (0.0-1.3); Monocytes % 3.7 %; Platelet Count 269 K/mcL (140-400); Red Blood Count 5.72 M/mcL (3.82-4.97); Red Cell Distribution Width 15.1 % (11.5-14.5); Segmented Neutrophils % 80.7 %
[2017-07-25 08:47] LABS: Prothrombin Time 10.7 Seconds (9.4-12.1)
[2017-07-25 08:50] LABS: Activated Partial Thrombo Time 27.4 Seconds (26.0-36.0)
[2017-07-25] MEDS ORDERED: Isovue-370 500 ML INFUS..BTL IV ONE (08:51)
[2017-07-25 09:06] LABS: Troponin I < 0.03 ng/mL (< 0.04)
[2017-07-25 09:12] LABS: Alanine Aminotransferase 17 Units/L (7-52); Albumin 4.7 g/dL (3.5-5.7); Albumin/Globulin Ratio 1.2 (1.1-2.2); Alkaline Phosphatase 110 Units/L (34-104); Amylase 33 Units/L (29-103); Aspartate Amino Transferase 13 Units/L (13-39); BUN/Creatinine Ratio 25 (6-26); Bilirubin,Direct 0.2 mg/dL (0.0-0.2); Bilirubin,Indirect 0.4 mg/dL (0.0-1.2); Bilirubin,Total 0.6 mg/dL (0.3-1.0); Blood Urea Nitrogen 20 mg/dL (8-23); Calcium 10.7 mg/dL (8.6-10.3); Carbon Dioxide 33 mEq/L (23-29); Chloride 93 mEq/L (98-107); Globulin 3.8 g/dL (2.4-3.5); Glucose 153 mg/dL (70-105); Lipase 6 Units/L (11-82); Osmolality,Calculated 294 (280-300); Potassium 3.4 mEq/L (3.5-5.1); Sodium 139 mEq/L (136-145); Total Protein 8.5 g/dL (6.4-8.9); eGFR For African Americans > 60 (> 60); eGFR For Non-African Americans > 60 (> 60)
[2017-07-25] MEDS ORDERED: Promethazine 25 MG in 0.9 % Sodium Chloride 50 ML IVPB ONE (09:24)
[2017-07-25] MEDS ORDERED: Prochlorperazine 10 MG/2 ML VIAL IVP STA (10:33)
--- NOTE | 2017-07-25 11:44 | Emergency Department Note ---
Disposition Clinical Impression: Intractable epigastric abdominal pain Intractable nausea and vomiting Qualifiers: Vomiting type: unspecified Qualified Code(s): R11.2 - Nausea with vomiting, unspecified Disposition: Admitted As Inpatient Condition: Fair Time of Disposition: 11:43 General Adult HPI - General Chief complaint: ED Nausea/Vomiting/Diarrhea Stated complaint: NV x 3 days/possible stomach flu Time Seen by Provider: 07/25/17 07:37 Source: patient, EMS Mode of arrival: EMS Limitations: no limitations - History of Present Illness Pain Scale: 10 - Related Data Home Medications Medication Instructions Recorded Confirmed Cetirizine HCl [Zyrtec] 10 mg PO DAILY 02/19/15 07/25/17 Levothyroxine [Synthroid] 75 mcg PO DAILY 02/19/15 07/25/17 Albuterol Sulfate [Albuterol 2 puff IH Q4H PRN 05/17/16 07/25/17 Inhaler] Beclomethasone Diprop 40mcg [QVAR 1 puff IH DAILY 05/17/16 07/25/17 40 mcg] Omeprazole [PriLOSEC] 20 mg PO BID 05/17/16 07/25/17 Aripiprazole [Abilify] 20 mg PO DAILY 07/25/17 07/25/17 Propranolol HCl 40 mg PO BID 07/25/17 07/25/17 Previous Rx's Medication Instructions Recorded Quetiapine Fumarate [Seroquel] 800 mg PO HS #60 tablet 08/13/16 traZODone [TraZODone] 100 mg PO HS #60 tablet 08/13/16 Allergies Allergy/AdvReac Type Severity Reaction Status Date / Time acetaminophen [From Tylenol] Allergy Mild Hives Verified 07/25/17 11:47 Constitutional: Denies: fever, chills, weakness, weight change Eyes: Denies: eye pain, eye discharge, vision change ENT ED: Denies: ear pain, throat pain, dental pain, hearing loss, epistaxis, congestion, dysphagia Cardiovascular: Denies: chest pain, palpitations, dyspnea on exertion, edema, syncope Respiratory: Denies: cough, dyspnea, wheezes, hemoptysis, stridor Gastrointestinal: Reports: as per HPI, nausea, vomiting, diarrhea. Denies: constipation, hematemesis, melena, hematochezia Genitourinary: Denies: dysuria, frequency, hematuria, discharge Musculoskeletal: Denies: back pain, neck pain, arthralgia, myalgia Integumentary: Denies: rash, abrasion, lesions Neurological: Denies: headache, weakness, numbness, paresthesias, confusion, abnormal gait, vertigo Psychiatric: Denies: anxiety, depression, suicidal thoughts, homicidal thoughts , auditory hallucinations, visual hallucinations Endocrine: Denies: fatigue Hematological/Lymphatic: Denies: easy bleeding, easy bruising Allergic/Immunologic: Denies: facial swelling, urticaria Past Medical History - Past Medical History Medical history: Reports: COPD, GERD, hypertension, kidney stones (bilateral), migraine, other Surgical history: Reports: cholecystectomy, orthopedic, other Psychiatric history: Reports: bipolar, depression - Social History Smoking Status: Current every day smoker Smokeless Tobacco Status: No Alcohol use: Reports: none Drug use: Reports: marijuana Physical Exam - General Limitations: no limitations General appearance: alert, in no apparent distress Course Vital Signs Temperature 97.7 F 07/25/17 07:37 Pulse Rate 118 07/25/17 07:37 Respiratory Rate 20 07/25/17 07:37 Blood Pressure 210/113 07/25/17 07:37 O2 Sat by Pulse Oximetry 95 07/25/17 07:37 Temperature 97.7 F 07/25/17 07:37 Pulse Rate 109 07/25/17 13:07 Respiratory Rate 18 07/25/17 13:07 Blood Pressure 175/130 07/25/17 13:07 O2 Sat by Pulse Oximetry 96 07/25/17 13:07 Oxygen Delivery Oxygen Delivery Nasal Cannula Medical Decision Making - Lab Data Result diagrams: 07/25/17 08:26 07/25/17 08:26 Lab Results 07/25/17 07/25/17 07/25/17 Range/Units 07:53 08:26 08:26 WBC 7.4 (4.3-11.1) K/mcL RBC 5.72 H (3.82-4.97) M/mcL Hgb 16.2 H (11.5-15.4) g/dL Hct 48.6 H (35.3-44.9) % MCV 85.0 (83.0-100.0) fL MCH 28.3 (28.0-33.3) pg MCHC 33.3 (31.6-35.5) g/dL RDW 15.1 H (11.5-14.5) % Plt Count 269 (140-400) K/mcL MPV 9.2 L (9.4-12.4) fL Immature Gran % 0.3 (0-4) % Seg Neutrophils % 80.7 % Lymphocytes % 15.2 % Monocytes % 3.7 % Eosinophils % 0.0 % Basophils % 0.1 % Neutrophils # 6.0 (1.6-8.9) K/mcL Lymphocytes # 1.1 (0.6-4.6) K/mcL Monocytes # 0.3 (0.0-1.3) K/mcL Eosinophils # 0.0 (0.0-0.6) K/mcL Basophils # 0.0 (0.0-0.2) K/mcL PT 10.7 (9.4-12.1) Seconds INR 1.0 APTT 27.4 (26.0-36.0) Seconds Sodium (136-145) mEq/L Potassium (3.5-5.1) mEq/L Chloride (98-107) mEq/L Carbon Dioxide (23-29) mEq/L BUN (8-23) mg/dL Creatinine (0.60-1.20) mg/dL Est GFR ( Amer) (> 60) Est GFR (Non-Af Amer) (> 60) BUN/Creatinine Ratio (6-26) Glucose (70-105) mg/dL Calculated Osmolality (280-300) Lactic Acid (0.5-2.2) mmol/L Calcium (8.6-10.3) mg/dL Total Bilirubin (0.3-1.0) mg/dL Direct Bilirubin (0.0-0.2) mg/dL Indirect Bilirubin (0.0-1.2) mg/dL AST (13-39) Units/L ALT (7-52) Units/L Alkaline Phosphatase (34-104) Units/L Troponin I (< 0.04) ng/mL Serum Total Protein (6.4-8.9) g/dL Albumin (3.5-5.7) g/dL Globulin (2.4-3.5) g/dL Albumin/Globulin Ratio (1.1-2.2) Amylase (29-103) Units/L Lipase (11-82) Units/L Urine Color Yellow (Yellow) Urine Clarity Slightly Hazy (Clear) Urine pH 8.5 H (5.0-8.0) pH Units Ur Specific [place] 1.016 (1.010-1.025) Urine Protein 100 H (Neg-Trace) mg/dL Urine Glucose (UA) Normal (Normal) mg/dL Urine Ketones Negative (Negative) mg/dL Urine Blood Negative (Negative) Urine Nitrite Negative (Negative) Urine Bilirubin Negative (Negative) Urine Urobilinogen Normal (Normal) mg/dL Ur Leukocyte Esterase Negative (Negative) Urine Microscopic RBC 0-3 (0-3) per hpf Urine Microscopic WBC 0-3 (0-3) per hpf Ur Squamous Epith Cells Moderate H (None-Few) per lpf Amorphous Sediment Few (Few) Urine Bacteria Few (None-Few) per hpf Ur Culture Indicated? NO (NO) 07/25/17 07/25/17 Range/Units 08:26 08:26 WBC (4.3-11.1) K/mcL RBC (3.82-4.97) M/mcL Hgb (11.5-15.4) g/dL Hct (35.3-44.9) % MCV (83.0-100.0) fL MCH (28.0-33.3) pg MCHC (31.6-35.5) g/dL RDW (11.5-14.5) % Plt Count (140-400) K/mcL MPV (9.4-12.4) fL Immature Gran % (0-4) % Seg Neutrophils % % Lymphocytes % % Monocytes % % Eosinophils % % Basophils % % Neutrophils # (1.6-8.9) K/mcL Lymphocytes # (0.6-4.6) K/mcL Monocytes # (0.0-1.3) K/mcL Eosinophils # (0.0-0.6) K/mcL Basophils # (0.0-0.2) K/mcL PT (9.4-12.1) Seconds INR APTT (26.0-36.0) Seconds Sodium 139 (136-145) mEq/L Potassium 3.4 L (3.5-5.1) mEq/L Chloride 93 L (98-107) mEq/L Carbon Dioxide 33 H (23-29) mEq/L BUN 20 (8-23) mg/dL Creatinine 0.81 (0.60-1.20) mg/dL Est GFR ( Amer) > 60 (> 60) Est GFR (Non-Af Amer) > 60 (> 60) BUN/Creatinine Ratio 25 (6-26) Glucose 153 H (70-105) mg/dL Calculated Osmolality 294 (280-300) Lactic Acid 1.3 (0.5-2.2) mmol/L Calcium 10.7 H (8.6-10.3) mg/dL Total Bilirubin 0.6 (0.3-1.0) mg/dL Direct Bilirubin 0.2 (0.0-0.2) mg/dL Indirect Bilirubin 0.4 (0.0-1.2) mg/dL AST 13 (13-39) Units/L ALT 17 (7-52) Units/L Alkaline Phosphatase 110 H (34-104) Units/L Troponin I < 0.03 (< 0.04) ng/mL Serum Total Protein 8.5 (6.4-8.9) g/dL Albumin 4.7 (3.5-5.7) g/dL Globulin 3.8 H (2.4-3.5) g/dL Albumin/Globulin Ratio 1.2 (1.1-2.2) Amylase 33 (29-103) Units/L Lipase 6 L (11-82) Units/L Urine Color (Yellow) Urine Clarity (Clear) Urine pH (5.0-8.0) pH Units Ur Specific [place] (1.010-1.025) Urine Protein (Neg-Trace) mg/dL Urine Glucose (UA) (Normal) mg/dL Urine Ketones (Negative) mg/dL Urine Blood (Negative) Urine Nitrite (Negative) Urine Bilirubin (Negative) Urine Urobilinogen (Normal) mg/dL Ur Leukocyte Esterase (Negative) Urine Microscopic RBC (0-3) per hpf Urine Microscopic WBC (0-3) per hpf Ur Squamous Epith Cells (None-Few) per lpf Amorphous Sediment (Few) Urine Bacteria (None-Few) per hpf Ur Culture Indicated? (NO) Attestation Statement - Attestation Attestation: Cayden Calvillo DO have provided [id number]-care time during the care of this patient. Detailed review the presentation, symptoms, medical history were discussed and reviewed with the mid-level provider Mauricio Soliz PA-C/[employer]. Medical intervention labs and imaging studies were reviewed in detail. See full documentation of physical exam and course of care in the mid-level provider's note. I agree with the determined course of care, medical intervention and disposition put forth by the mid-level provider. See below documentation for changes or alterations in documentation. 62-year-old female presents emergency room with uncontrolled nausea vomiting and abdominal pain. She is a long-standing history of these issues. Patient denies any trauma or injury. She does use marijuana on a daily basis. Since walking marijuana the other day her symptoms have gotten worse. Patient denies any travel outside the country, trauma, infection. Patient denies any fevers or chills chest pain shortness of breath headache or vision change. Her main complaint is nausea vomiting and abdominal pain. Patient has been given multiple doses of pain medication as had negative laboratory workup the emergency room. Urinalysis is unremarkable. Initially patient did not have CT imaging completed secondary to her chronic presentations have a multiple evaluations. In the past. Patient continued to have persistent pain in the epigastrium and it was determined that CT imaging would be required. CT imaging does not show any acute pathology outside of a stable 2.25 cm intra- abdominal aortic aneurysm. She has no signs of diverticular disease infection or inflammation in the abdominal wall. Patient's vital signs remained tachycardic and hypertensive. Patient will be provided with a third dose of pain medication and fluids. She will be admitted for intractable symptoms of this time. Physical exam is unremarkable except for her abdominal discomfort and pain. See detailed documentation of the physical exam, medical intervention , medical decision-making and disposition in the mid-level provider's note. [id number] Patient's blood pressure is still elevated at this time. Pain medication will be given. Disposition will be determined after conversation with hospitals. If they recommend any further intervention like medications we will provide him to the patient this time. Patient's blood pressure is down to 175 systolic and we will continue to monitor here. No intervention will be given at this point. Patient will be admitted to the floor for further management of her intractable abdominal pain with nausea vomiting
[2017-07-25] MEDS ORDERED: Naloxone 0.4 MG/ML INJ IVP PRN (12:00)
[2017-07-25] MEDS ORDERED: Acetaminophen 325 MG TABLET PO PRN (12:00)
[2017-07-25] MEDS ORDERED: Ondansetron 4 MG/2 ML VIAL IVP PRN (12:06)
--- NOTE | 2017-07-25 12:13 | Internal Med History&Physical ---
<Reyna Jackson - Last Filed: 07/25/17 12:28> Date of Encounter: 07/25/17 Time of Encounter: 12:10 Internal Medicine - H&P: HPI Admitted From: Home Plans for Post Hospital Care: Home History of present illness: 62-year-old female presents emergency room with uncontrolled nausea/vomiting and abdominal pain. She is a long-standing history of these issues. Patient denies any trauma or injury. She does use marijuana on a daily basis. Since walking marijuana the other day her symptoms have gotten worse. Patient denies any travel outside the country, trauma, infection. Patient denies any fevers or chills chest pain shortness of breath headache or vision change. Her main complaint is nausea vomiting and abdominal pain. Patient has been given multiple doses of pain medication as had negative laboratory workup the emergency room. Urinalysis is unremarkable. Initially patient did not have CT imaging completed secondary to her chronic presentations have a multiple evaluations. In the past. Patient continued to have persistent pain in the epigastrium and it was determined that CT imaging would be required. CT imaging does not show any acute pathology outside of a stable 2.25 cm intra- abdominal aortic aneurysm. She has no signs of diverticular disease infection or inflammation in the abdominal wall. Patient's vital signs remained tachycardic and hypertensive. Patient will be provided with a third dose of pain medication and fluids. She will be admitted for intractable symptoms of this time. Physical exam is unremarkable except for her abdominal discomfort and pain. See detailed documentation of the physical exam, medical intervention , medical decision-making and disposition in the mid-level provider's note. At the ED, patient was found having elevated blood pressure. Labs revealed elevated calcium level. She will be admitted as observation for dehydration. Past Med Surg Social Fam HX - Past Medical History Medical history: COPD, GERD, hypertension, kidney stones (bilateral), migraine, other Psychiatric history: bipolar, depression - Past Surgical History Surgical History: cholecystectomy, orthopedic, other - Social History Smoking Status: Current every day smoker Smokeless Tobacco Status: No Alcohol use: none Drug use: marijuana - Family History Mother Adopted: No Living Status: Unknown Hx Family Cardiac Disorders: No Hx Family Respiratory Disorders: No Hx Family Cancer: No Hx Family GI Disorders: No Hx Family Endocrine Disorder: No Hx Family Neuromuscular Disorders: No Hx Family Neurologic Disorders: No Hx Family HEENT Disorders: No Hx Family Autoimmune Disorders: No Internal Medicine - H&P: Meds Cetirizine HCl [Zyrtec] 10 mg PO DAILY 02/19/15 [History] Levothyroxine [Synthroid] 75 mcg PO DAILY 02/19/15 [History] Albuterol Sulfate [Albuterol Inhaler] 2 puff IH Q4H PRN 05/17/16 [History] Beclomethasone Diprop 40mcg [QVAR 40 mcg] 1 puff IH DAILY 05/17/16 [History] Omeprazole [PriLOSEC] 20 mg PO BID 05/17/16 [History] Quetiapine Fumarate [Seroquel] 800 mg PO HS #60 tablet 08/13/16 [Rx] traZODone [TraZODone] 100 mg PO HS #60 tablet 08/13/16 [Rx] Aripiprazole [Abilify] 20 mg PO DAILY 07/25/17 [History] Propranolol HCl 40 mg PO BID 07/25/17 [History] 3 Allergy/AdvReac Type Severity Reaction Status Date / Time acetaminophen [From Tylenol] Allergy Mild Hives Verified 07/25/17 11:47 All Systems PM: A 10-system review of systems was performed and is negative for pertinent findings except as documented above in the HPI. Review of systems: REVIEW OF SYSTEMS: CONSTITUTIONAL: No weight loss, fever, chills, weakness or fatigue. HEENT: Eyes: No visual loss, blurred vision, double vision or yellow sclerae. Ears, Nose, Throat: No hearing loss, sneezing, congestion, runny nose or sore throat. SKIN: No rash or itching. CARDIOVASCULAR: No chest pain, chest pressure or chest discomfort. No palpitations or edema. RESPIRATORY: No shortness of breath, cough or sputum. GASTROINTESTINAL: No anorexia, nausea, vomiting or diarrhea. No abdominal pain or blood. GENITOURINARY: No dysuria, urgency, or frequency. NEUROLOGICAL: No headache, dizziness, syncope, paralysis, ataxia, numbness or tingling in the extremities. No change in bowel or bladder control. MUSCULOSKELETAL: No muscle, back pain, joint pain or stiffness. HEMATOLOGIC: No anemia, bleeding or bruising. LYMPHATICS: No enlarged nodes. No history of splenectomy. PSYCHIATRIC: No history of depression or anxiety. ENDOCRINOLOGIC: No reports of sweating, cold or heat intolerance. No polyuria or polydipsia. - Constitutional Vitals: Temp Pulse Resp BP Pulse Ox 97.7 F 110 20 197/142 96 07/25/17 07:37 07/25/17 11:09 07/25/17 11:09 07/25/17 11:09 07/25/17 11:09 General appearance: Present: A&O X 3 Exam: PHYSICAL EXAMINATION: GENERAL APPEARANCE: The patient is alert, oriented and in no acute distress. HEENT: Head is normocephalic. The sinuses are nontender. Pupils are equal and reactive. The nares are patent. Oropharynx clear without lesions. NECK: Supple without lymphadenopathy. HEART: Regular rate and rhythm. LUNGS: No crackles or wheezes are heard. ABDOMEN: Soft, nontender, nondistended with good bowel sounds heard. Inguinal area is normal. EXTREMITIES: Without cyanosis, clubbing or edema. NEUROLOGICAL: Gross nonfocal. SKIN: Warm and dry without any rash. Internal Med - H&P Results - Labs CBC & Chem 7: 07/25/17 08:26 07/25/17 08:26 Labs: Short CBC 07/25/17 Range/Units 08:26 WBC 7.4 (4.3-11.1) K/mcL Hgb 16.2 H (11.5-15.4) g/dL Hct 48.6 H (35.3-44.9) % Plt Count 269 (140-400) K/mcL Neutrophils # 6.0 (1.6-8.9) K/mcL BMP 07/25/17 08:26 Sodium 139 Potassium 3.4 L Chloride 93 L Carbon Dioxide 33 H BUN 20 Creatinine 0.81 Glucose 153 H Calcium 10.7 H Cardiac Enzymes 07/25/17 Range/Units 08:26 Troponin I < 0.03 (< 0.04) ng/mL Liver Function 07/25/17 Range/Units 08:26 Total Bilirubin 0.6 (0.3-1.0) mg/dL Direct Bilirubin 0.2 (0.0-0.2) mg/dL AST 13 (13-39) Units/L ALT 17 (7-52) Units/L Alkaline Phosphatase 110 H (34-104) Units/L Albumin 4.7 (3.5-5.7) g/dL Urine 07/25/17 Range/Units 07:53 Urine Color Yellow (Yellow) Urine Clarity Slightly Hazy (Clear) Urine pH 8.5 H (5.0-8.0) pH Units Ur Specific [place] 1.016 (1.010-1.025) Urine Protein 100 H (Neg-Trace) mg/dL Urine Glucose (UA) Normal (Normal) mg/dL - Impressions ITS Impressions Abdomen/Pelvis CT 07/25/17 08:51 IMPRESSION: Bilateral nephroliths with no evidence for obstruction. Diverticulosis with no evidence for diverticulitis. Mild aneurysmal dilatation of the aorta measuring 3.25 cm. RECOMMENDATIONS: Managing Abdominal Aortic Aneurysms 2.6-2.9 cm: Every 5 years* 3.0-3.4 cm: Every 3 years. 3.5-3.9 cm: Every 1 year. 4.0-4.4 cm: Every 1 year. Recommend vascular consultation. 4.5-5.4 cm: Every 6 months. Recommend vascular consultation. Greater than or equal to 5.5 cm: Referral to vascular surgeon. *For abdominal aortas with maximum diameter of 2.6-2.9 cm meeting criteria for AAA (>50% of proximal normal segment). Reference: J Vasc Surg. 2008;50(4 Suppl):S2-49 D/ / 07/25/2017 11:05:37 Forest Martinez MD / Rufina Bales Interpreting Provider: Forest Martinez MD - Assessment and plan (1) Abdominal pain Current Visit: Yes Status: Acute Assessment and plan: - Supportive care and pain control. Qualifiers: Abdominal location: upper abdomen, unspecified Qualified Code(s): R10.10 - Upper abdominal pain, unspecified (2) Schizophrenia Current Visit: No Status: Chronic Assessment and plan: - Mood stable, denies suicidal, continue home medication. Qualifiers: Schizophrenia type: paranoid schizophrenia Qualified Code(s): F20.0 - Paranoid schizophrenia (3) HTN (hypertension) Current Visit: Yes Status: Chronic Assessment and plan: - BP was elevated at ED, or change home medication to IV, hydralazine as needed. Qualifiers: Hypertension type: essential hypertension Qualified Code(s): I10 - Essential (primary) hypertension (4) Polysubstance abuse Current Visit: No Status: Chronic Assessment and plan: - Pending urine drug screen. (5) Intractable nausea and vomiting Current Visit: Yes Status: Acute Assessment and plan: 62-year-old female with past medical history of marijuana abuse and hypertension presented with intractable abdominal pain, nausea/vomiting, and diarrhea. - Patient reported has been use marijuana in the past for several times, after each use, she develops abdominal symptoms including nausea and vomiting. - CT abdomen no acute changes. Acute gastroenteritis was suspected. - Patient was found to be dehydrated, given to the patient IV fluid, supportive care. - Qualifiers: Vomiting type: unspecified Qualified Code(s): R11.2 - Nausea with vomiting , unspecified - Time Spent With Patient Total time spent is greater than 50% in coordination of care (as documented) at patient's floor/unit and/or counseling patient: Greater than 35 minutes <Macarena Sandoval - Last Filed: 07/25/17 13:02> Date of Encounter: 07/25/17 Internal Medicine - H&P: HPI History of present illness: Ms. Banks is a 62 year old female All Systems PM: A 10-system review of systems was performed and is negative for pertinent findings except as documented above in the HPI. - Constitutional Vitals: Temp Pulse Resp BP Pulse Ox 97.7 F 110 20 197/142 96 07/25/17 07:37 07/25/17 11:09 07/25/17 11:09 07/25/17 11:09 07/25/17 11:09 Internal Med - H&P Results - Labs CBC & Chem 7: 07/25/17 08:26 07/25/17 08:26 - Attending Attestation Patient was examined, review of the note and agreed with plan of care. Patient has nausea vomiting diarrhea for last 3 days and appeared like more acute gastroenteritis but she denies any fever or chills. Patient also appear dehydrated. Diffuse abdominal pain but more on epigastric region, CT abdomen with no acute finding. Patient also found to have hypercalcemia. Will keep patient nothing by mouth, IV fluid normal saline 1 2511 per hour, PPI. Restart beta isabel in IV form as she take oral beta isabel at home. Hydralazine when necessary. Urine drug screen ordered and pending report. - Assessment and plan (1) Abdominal pain Current Visit: Yes Status: Acute Qualifiers: Abdominal location: upper abdomen, unspecified Qualified Code(s): R10.10 - Upper abdominal pain, unspecified (2) Schizophrenia Current Visit: No Status: Chronic Qualifiers: Schizophrenia type: paranoid schizophrenia Qualified Code(s): F20.0 - Paranoid schizophrenia (3) HTN (hypertension) Current Visit: Yes Status: Chronic Qualifiers: Hypertension type: essential hypertension Qualified Code(s): I10 - Essential (primary) hypertension (4) Polysubstance abuse Current Visit: No Status: Chronic (5) Intractable nausea and vomiting Current Visit: Yes Status: Acute Qualifiers: Vomiting type: unspecified Qualified Code(s): R11.2 - Nausea with vomiting , unspecified - Time Spent With Patient Total time spent is greater than 50% in coordination of care (as documented) at patient's floor/unit and/or counseling patient:
[2017-07-25] MEDS: Ringers Solution, Lactated 1,000 ML IVC SCH (14:29)
[2017-07-25] MEDS: traMADol 50 MG TABLET PO PRN ×2 (14:35→20:21)
[2017-07-25 19:35] LABS: Amphetamine Screen,Urine Negative ng/mL (Cutoff=1000); Barbiturate Screen,Urine Negative ng/mL (Cutoff=200); Benzodiazepines Screen,Urine Negative ng/mL (Cutoff=200); Cannabinoid Screen,Urine Positive ng/mL (Cutoff = 50); Cocaine Screen,Urine Negative ng/mL (Cutoff= 300); Opiate Screen,Urine Negative ng/mL (Cutoff=300); Phencyclidine Screen,Urine Negative ng/mL (Cutoff=25)
[2017-07-25] MEDS: traZODone 50 MG TABLET PO SCH (20:11)
[2017-07-25] MEDS ORDERED: NON-FORMULARY MEDICATION 1 EACH EACH (Quetiapine Fumarate [Seroquel] 800 MG) PO SCH (21:00)
[2017-07-26 01:29] LABS: Basophils % 0.1 %; Hematocrit 43.6 % (35.3-44.9); Immature Granulocytes % 0.4 % (0-4); Lymphocytes # 1.2 K/mcL (0.6-4.6); Lymphocytes % 12.5 %; Mean Corpuscular HGB Conc 33.3 g/dL (31.6-35.5); Mean Corpuscular Hemoglobin 28.7 pg (28.0-33.3); Mean Corpuscular Volume 86.2 fL (83.0-100.0); Mean Platelet Volume 9.6 fL (9.4-12.4); Monocytes # 0.6 K/mcL (0.0-1.3); Monocytes % 6.4 %; Neutrophils # 7.5 K/mcL (1.6-8.9); Platelet Count 253 K/mcL (140-400); Red Blood Count 5.06 M/mcL (3.82-4.97); Red Cell Distribution Width 15.4 % (11.5-14.5); Segmented Neutrophils % 80.6 %
[2017-07-26 01:30] LABS: Hemoglobin 14.5 g/dL (11.5-15.4)
[2017-07-26] MEDS: Ringers Solution, Lactated 1,000 ML IVC SCH (01:35)
[2017-07-26 01:48] LABS: Alanine Aminotransferase 15 Units/L (7-52); Albumin 4.5 g/dL (3.5-5.7); Albumin/Globulin Ratio 1.4 (1.1-2.2); Alkaline Phosphatase 106 Units/L (34-104); Aspartate Amino Transferase 14 Units/L (13-39); BUN/Creatinine Ratio 22 (6-26); Bilirubin,Total 0.7 mg/dL (0.3-1.0); Blood Urea Nitrogen 18 mg/dL (8-23); Calcium 9.9 mg/dL (8.6-10.3); Carbon Dioxide 29 mEq/L (23-29); Chloride 100 mEq/L (98-107); Globulin 3.2 g/dL (2.4-3.5); Glucose 136 mg/dL (70-105); Osmolality,Calculated 294 (280-300); Potassium 3.8 mEq/L (3.5-5.1); Sodium 140 mEq/L (136-145); Total Protein 7.7 g/dL (6.4-8.9); eGFR For African Americans > 60 (> 60); eGFR For Non-African Americans > 60 (> 60)
[2017-07-26] MEDS: traMADol 50 MG TABLET PO PRN ×2 (03:23→09:59)
[2017-07-26] MEDS: Ondansetron 4 MG/2 ML VIAL IVP PRN ×3 (03:23→20:04)
[2017-07-26] MEDS ORDERED: *HR* Labetalol 20 MG/4 ML SYRINGE IVP ONE (04:10)
[2017-07-26] MEDS: Beclomethasone 40mcg MDI IH SCH (07:57)
[2017-07-26] MEDS: Loratadine 10 MG TABLET PO SCH (08:03)
--- NOTE | 2017-07-26 08:32 | Internal Med Progress Note ---
Date of Encounter: 07/26/17 Time of Encounter: 08:00 - Assessment and plan (1) Abdominal pain Current Visit: Yes Status: Acute Assessment and plan: -likely from cannabinoid hyperemesis syndrome. Continue supportive care. Counseled to stop smoking marijuana Qualifiers: Abdominal location: upper abdomen, unspecified Qualified Code(s): R10.10 - Upper abdominal pain, unspecified (2) Schizophrenia Current Visit: No Status: Chronic Assessment and plan: - Mood stable, denies suicidal, continue home medication. Qualifiers: Schizophrenia type: paranoid schizophrenia Qualified Code(s): F20.0 - Paranoid schizophrenia (3) HTN (hypertension) Current Visit: Yes Status: Chronic Assessment and plan: - BP was elevated at ED, or change home medication to IV, hydralazine as needed. Continue propranolol Qualifiers: Hypertension type: essential hypertension Qualified Code(s): I10 - Essential (primary) hypertension (4) Polysubstance abuse Current Visit: No Status: Chronic Assessment and plan: - Drug screen positive for THC. counseled (5) Intractable nausea and vomiting Current Visit: Yes Status: Acute Assessment and plan: likely from marijuana use. Continue supportive care Qualifiers: Vomiting type: unspecified Qualified Code(s): R11.2 - Nausea with vomiting , unspecified - Time Spent With Patient Total time spent is greater than 50% in coordination of care (as documented) at patient's floor/unit and/or counseling patient: - Subjective Interval history: No acute events overnight - Constitutional Vitals: Temp Pulse Resp BP Pulse Ox 98.1 F 96 16 154/95 93 07/26/17 07:32 07/26/17 07:32 07/26/17 07:56 07/26/17 07:32 07/26/17 07:56 General appearance: Present: A&O X 3 - Head Head exam: Present: atraumatic, normocephalic - Eye Eye exam: Present: PERRL, conjuntiva pink, sclera anicteric Pupils: Present: PERRL - Neck Neck exam general surgery: Present: supple, trachea midline. Absent: lymphadenopathy - Respiratory Respiratory exam: Present: CTAB. Absent: accessory muscle use, rales, rhonchi, wheezes - Cardiovascular Cardiovascular exam: Present: RRR, +S1, +S2. Absent: diastolic murmur, gallop, rubs, systolic murmur - GI/Abdominal GI/Abdominal exam: Present: normal bowel sounds, soft, no peritoneal signs. Absent: distended, tenderness - Extremities Exam Extremities exam: Present: warm, radial pulses palpable and symmetrical. Absent : calf tenderness, cyanotic, pedal edema - Neurological Exam Neurological exam: Present: CN II-XII intact, oriented X3, no focal deficits. Absent: pronater drift, facial droop, speech deficit - Skin Skin exam: Present: dry, intact Internal Medicine: Result - Labs CBC & Chem 7: 07/26/17 00:59 07/26/17 00:59 Labs: Short CBC 07/26/17 Range/Units 00:59 WBC 9.3 (4.3-11.1) K/mcL Hgb 14.5 D (11.5-15.4) g/dL Hct 43.6 (35.3-44.9) % Plt Count 253 (140-400) K/mcL Neutrophils # 7.5 (1.6-8.9) K/mcL BMP 07/26/17 00:59 Sodium 140 Potassium 3.8 Chloride 100 Carbon Dioxide 29 BUN 18 Creatinine 0.82 Glucose 136 H Calcium 9.9 Liver Function 07/26/17 Range/Units 00:59 Total Bilirubin 0.7 (0.3-1.0) mg/dL AST 14 (13-39) Units/L ALT 15 (7-52) Units/L Alkaline Phosphatase 106 H (34-104) Units/L Albumin 4.5 (3.5-5.7) g/dL - ABG Interpretation ABG results: PT/INR, D-dimer PT 10.7 Seconds (9.4-12.1) 07/25/17 08:26 Consult Discharge Plan - Plan Referrals: NONE,PCP [Primary Care Provider] -
[2017-07-26] MEDS ORDERED: ARIPiprazole 10 MG TABLET PO SCH (09:00)
[2017-07-26] MEDS ORDERED: traMADol 50 MG TABLET PO ONE (11:11)
[2017-07-26] MEDS ORDERED: traMADol 50 MG TABLET PO PRN (11:12)
[2017-07-26] MEDS: Famotidine 20 MG/2 ML VIAL IVP SCH (18:44)
[2017-07-26] MEDS: traZODone 50 MG TABLET PO SCH (20:04)
[2017-07-27 04:07] VITALS: BP 105/69
[2017-07-27] MEDS: Famotidine 20 MG/2 ML VIAL IVP SCH (05:37)
[2017-07-27] MEDS: Beclomethasone 40mcg MDI IH SCH (08:17)
[2017-07-27] MEDS: Loratadine 10 MG TABLET PO SCH (08:40)
--- NOTE | 2017-07-27 11:08 | Discharge Summary ---
- NOTES TO OUTPATIENT PROVIDER Notes to Outpatient Provider: Follow up with PCP. Counseled to stop smoking marijuana Date of Encounter: 07/27/17 Time of Encounter: 11:00 - Discharge Diagnosis (1) Abdominal pain Priority: Primary Status: Acute Assessment and Plan: -likely from cannabinoid hyperemesis syndrome. Continue supportive care. Counseled to stop smoking marijuana. Resolved Qualifiers: Abdominal location: upper abdomen, unspecified Qualified Code(s): R10.10 - Upper abdominal pain, unspecified (2) Schizophrenia Priority: Secondary Status: Chronic Assessment and Plan: - Mood stable, denies suicidal, continue home medication. Qualifiers: Schizophrenia type: paranoid schizophrenia Qualified Code(s): F20.0 - Paranoid schizophrenia (3) HTN (hypertension) Priority: Secondary Status: Chronic Assessment and Plan: - BP was elevated at ED, or change home medication to IV, hydralazine as needed. Continue propranolol Qualifiers: Hypertension type: essential hypertension Qualified Code(s): I10 - Essential (primary) hypertension (4) Polysubstance abuse Priority: Secondary Status: Chronic Assessment and Plan: - Drug screen positive for THC. counseled (5) Intractable nausea and vomiting Priority: Secondary Status: Acute Assessment and Plan: likely from marijuana use. Continue supportive care Qualifiers: Vomiting type: unspecified Qualified Code(s): R11.2 - Nausea with vomiting , unspecified Hospital course: Ms. Banks is a 62 year old female - Time Spent with Patient Total time spent providing and/or coordinating discharge services: - Discharge Medications Prescriptions: Albuterol Sulfate [Albuterol Inhaler] 2 puff IH Q4H PRN #30 inhaler PRN Reason: Shortness Of Breath Aripiprazole [Abilify] 20 mg PO DAILY #30 tablet Beclomethasone Diprop 40mcg [QVAR 40 mcg] 1 puff IH DAILY #30 puff Cetirizine HCl [Zyrtec] 10 mg PO DAILY #30 tablet Levothyroxine [Synthroid] 75 mcg PO DAILY #60 tablet Propranolol HCl 40 mg PO BID #60 tablet Quetiapine Fumarate [Seroquel] 800 mg PO HS #60 tablet traZODone [TraZODone] 100 mg PO HS #60 tablet Home Medications: Levothyroxine [Synthroid] 75 mcg PO DAILY 02/19/15 [History] Omeprazole [PriLOSEC] 20 mg PO BID 05/17/16 [History] Albuterol Sulfate [Albuterol Inhaler] 2 puff IH Q4H PRN #30 inhaler 07/27/17 [Rx ] Aripiprazole [Abilify] 20 mg PO DAILY #30 tablet 07/27/17 [Rx] Beclomethasone Diprop 40mcg [QVAR 40 mcg] 1 puff IH DAILY #30 puff 07/27/17 [Rx] Cetirizine HCl [Zyrtec] 10 mg PO DAILY #30 tablet 07/27/17 [Rx] Levothyroxine [Synthroid] 75 mcg PO DAILY #60 tablet 07/27/17 [Rx] Propranolol HCl 40 mg PO BID #60 tablet 07/27/17 [Rx] Quetiapine Fumarate [Seroquel] 800 mg PO HS #60 tablet 07/27/17 [Rx] traZODone [TraZODone] 100 mg PO HS #60 tablet 07/27/17 [Rx] Allergies/Adverse Reactions: 3 Allergy/AdvReac Type Severity Reaction Status Date / Time acetaminophen [From Tylenol] Allergy Mild Hives Verified 07/25/17 11:47 Date of admission: 07/25/17 12:10 Primary care physician: PCP NONE - Constitutional Vitals: Temp Pulse Resp BP Pulse Ox 98.9 F 95 16 105/69 92 07/27/17 04:06 07/27/17 04:06 07/27/17 08:20 07/27/17 04:06 07/27/17 08:20 General appearance: Present: A&O X 3 - Head Head exam: Present: atraumatic, normocephalic - Eye Eye exam: Present: PERRL, conjuntiva pink, sclera anicteric Pupils: Present: PERRL - Neck Neck exam general surgery: Present: supple, trachea midline. Absent: lymphadenopathy - Respiratory Respiratory exam: Present: CTAB. Absent: accessory muscle use, rales, rhonchi, wheezes - Cardiovascular Cardiovascular exam: Present: RRR, +S1, +S2. Absent: diastolic murmur, gallop, rubs, systolic murmur - GI/Abdominal GI/Abdominal exam: Present: normal bowel sounds, soft, no peritoneal signs. Absent: distended, tenderness - Extremities Exam Extremities exam: Present: warm, radial pulses palpable and symmetrical. Absent : calf tenderness, cyanotic, pedal edema - Neurological Exam Neurological exam: Present: CN II-XII intact, oriented X3, no focal deficits. Absent: pronater drift, facial droop, speech deficit - Skin Skin exam: Present: dry, intact - Patient Status Disposition: Home, Self-Care Condition: Fair - Discharge Instructions Follow Up With: NONE,PCP [Primary Care Provider] - Additional Instructions: IF SYMPTOMS RETURN GO TO ER FOLLOW UP WITH YOUR DOCTOR IN 1 WEEK. PHYSICIAN REFERRAL CARD GIVEN FOR PATIENT TO CALL FOR APPOINTMENT DUE TO NO PRIMARY DOCTOR. - VTE Documentation of Mechanical Device: Intermittent pneumatic compression device
--- NOTE | 2017-07-27 16:54 | Electrocardiograph Report ---
[place] [id number] Test Date: 2017-07-25 Pat Name: Drea Banks Department: 102 Room: Gender: F Compensation Associate: : [id number] Requested By: Mauricio Soliz Order Number: [id number] Reading MD: Nelly Espinal Measurements Intervals Eclectic Rate: 114 P: 33 AR: 131 QRS: 47 QRSD: 104 T: 13 QT: 342 QTc: 410 Interpretive Statements SINUS TACHYCARDIA MODERATE ST DEPRESSION [0.05+ mV ST DEPRESSION] Electronically Signed On 07-27-2017 16:52:44 EDT by Nelly Espinal
== END 2017-07-27 12:56 | disposition home or self-care (01) ==
LOC: EMEROO 07:34 → 3NENU 07:34 → SUATTDRO 12:10 → 3NENU 13:41
PROVIDERS: ADMIT Student in an Organized Health Care Education/Training Program; ATTEND Student in an Organized Health Care Education/Training Program